=== PATIENT | female | born 1945 | race Caucasian/White ===

== ENCOUNTER 2021-06-06 10:06 | Emergency (ER) | payer MEDICARE ==
[2021-06-06 10:21] VITALS: BP 191/93
--- NOTE | 2021-06-06 11:47 | ED Physician Documentation ---
History of Present Illness - Stated complaint Stated Complaint: CHILLS, HIGH BP,SOA - Chief complaint Chief Complaint: General - Additonal information Additional information: 75-year-old female presents emergency department for evaluation of elevated blood pressure. She goes to a Suboxone clinic weekly and was told today that her blood pressure was greater than 180 thus she was advised to come to the ER. She has a heavy history of tobaccoism and cough at baseline but no change in the symptoms. She denies any leg swelling or chest pain. No headache, nausea, vomiting or abdominal pain. She states that she has been on Suboxone for about 2 months. Previous to this she was on methadone. She recently moved to the [place] from [place] and is staying with a cousin. She does not have a primary care doctor and denies that she is ever been treated for hypertension. She is taking no medications other than the Suboxone. Review of Systems Constitutional: denies: Fever, Chills Eyes: reports: Reviewed and negative Ears: reports: Reviewed and negative Nose: reports: Reviewed and negative Throat: reports: Reviewed and negative Cardiac: reports: Reviewed and negative Respiratory: reports: Reviewed and negative GI: reports: Reviewed and negative : reports: Reviewed and negative Skin: reports: Reviewed and negative PD PAST MEDICAL HISTORY - Present Medications Home Medications: Ambulatory Orders Medication Instructions Recorded Confirmed hydroCHLOROthiazide [Hydrodiuril] 12.5 mg PO DAILY #30 cap 06/06/21 - Allergies Allergies/Adverse Reactions: Allergies Allergy/AdvReac Type Severity Reaction Status Date / Time naloxone Allergy Anaphylaxis Verified 06/06/21 10:22 Penicillins Allergy Anaphylaxis Verified 06/06/21 10:22 PD ED PE EXPANDED - General General: Alert, No acute distress, Other (Appears older than stated age) - Cardiac Cardiac: Regular Rate, Radial strong equal, Pedal strong equal, Cap refill < 2 sec. No: Murmur Present - Respiratory Respiratory: Clear to ausultation saw. No: Distress, Labored - Abdomen Abdomen: Normal Bowel sounds. No: Tender to palpation - Derm Derm: Normal color, Warm and dry. No: Rash - Extremities Extremities: Normal. No: Deformity, Tenderness - Neuro Neuro: Alert and Oriented X 3, CNII-XII intact - GCS Eye Opening: Spontaneous Motor: Obeys Commands Verbal: Oriented Total: 15 Results - Vitals Vitals: Vital Signs - 24 hr 06/06/21 10:14 Temperature 36.5 C Heart Rate 70 Respiratory 18 Rate Blood Pressure 191/93 H O2 Saturation 99 Oxygen O2 Source Room air - EKG (time done) 1141 Rate: Rate (enter#) (71) Rhythm: NSR, Other (PAC) [place]: Normal Intervals: Normal MI, Prolonged QT QRS: Normal Ischemia: Non specific changes Other comments: Other comments Compare to prior EKG: Old EKG unavailable Computer interpretation: Disagree with computer - Labs Labs: Laboratory Tests 06/06/21 06/06/21 06/06/21 12:20 12:20 12:20 WBC 4.4 L RBC 4.93 Hgb 13.6 Hct 42.1 MCV 85.4 MCH 27.6 MCHC 32.3 RDW 14.7 Plt Count 170 MPV 8.9 Neut # (Auto) 2.1 Lymph # (Auto) 1.8 [place] # (Auto) 0.3 Eos # (Auto) 0.2 Baso # (Auto) 0.1 Absolute Nucleated RBC 0.00 Nucleated RBC % 0.0 Sodium 136 Potassium 4.3 Chloride 100 L Carbon Dioxide 27 Anion Gap 9.0 BUN 25 H Creatinine 0.9 Estimated GFR (MDRD) 61 L Glucose 92 Calcium 9.7 Total Bilirubin 0.7 AST 18 ALT 11 Alkaline Phosphatase 89 Troponin I High Sens 9.8 Total Protein 7.9 Albumin 3.9 Globulin 4.0 Albumin/Globulin Ratio 1.0 Lipase 30 - Rads (name of study) CXR Radiology: Final report received (no acute process) PD MEDICAL DECISION MAKING - ED course Complexity details: reviewed results, re-evaluated patient, considered differential, d/w patient ED course: 75-year-old female was referred to the emergency department from her Suboxone clinic for evaluation of elevated blood pressure. She is a daily tobacco user and was recently transition from methadone to Suboxone. She denies any recent illicit drug use. She states that it is likely been 10 to 15 years since she has taken blood pressure medication. Screening EKG and labs today are without acute findings. She has no headache, chest pain, abdominal pain nausea vomiting or new shortness of air. We discussed the long-term management of blood pressure is important. She did elect to start a low-dose of hydrochlorothiazide today. She will work to establish with a primary care doctor in the next few weeks. Emergent worrisome return precautions were otherwise discussed. Departure - Departure Disposition: 01 Home, Self Care Clinical Impression: Hypertension Qualifiers: Hypertension type: unspecified Qualified Code(s): I10 - Essential (primary) hypertension Condition: Stable Record reviewed to determine appropriate education?: Yes Prescriptions: hydroCHLOROthiazide [Hydrodiuril] 12.5 mg PO DAILY #30 cap Comments: Lana medrano were referred to the emergency department from the Suboxone clinic for elevated blood pressures. It sounds like it has been quite sometime since you have taken medication to control your blood pressure. Your screening EKG and labs today do not show any worrisome findings. It is going to be very important that you have a primary care doctor moving forward to help manage her blood pressure. You have elected to start treatment today therefore we will start you on hydrochlorothiazide. This medication will make you pee a little more than you normally would so I recommend you take it in the morning. Stopping tobacco use will also be helpful in the long-term and managing your blood pressure. If you ever develop chest pain, have sudden shortness of air or any fainting episodes return immediately to the emergency department. If you are unable to get an appointment to establish with a primary care doctor in the next 3 to 4 weeks I recommend that you follow-up at one of our local walk-in clinics. There they can reevaluate your blood pressure and make changes as necessary. Your prescription has been sent electronically to the [facility] in [place].
--- NOTE | 2021-06-06 12:19 | XRAY Report ---
PROCEDURE: Chest 1 View X-Ray INDICATIONS: Chest Pain TECHNIQUE: One view of the chest was acquired. COMPARISON: None FINDINGS: Surgical changes and devices: None. Lungs and pleura: No pleural effusions or pneumothorax. Lungs are clear. Mediastinum: Mediastinal contours appear normal. Heart size is normal. Bones and chest wall: No suspicious bony lesions. Overlying soft tissues appear unremarkable. IMPRESSION: No acute finding in the chest. Reviewed by: Harmeet Calvillo MD on 06/06/2021 12:18 PM PST Approved by: Harmeet Calvillo MD on 06/06/2021 12:18 PM PST Station ID: [id number]
[2021-06-06 12:28] LABS: BASOPHILS # (AUTO) 0.1 10^3/uL (0.0-0.1); BASOPHILS % (AUTO) 1.4 %; EOSINOPHILS # (AUTO) 0.2 10^3/uL (0.0-0.7); EOSINOPHILS % (AUTO) 5.4 %; HCT - HEMATOCRIT 42.1 % (37.0-47.0); HGB - HEMOGLOBIN 13.6 g/dL (12.0-16.0); LYMPHOCYTES # (AUTO) 1.8 10^3/uL (1.5-3.5); LYMPHOCYTES % (AUTO) 39.8 %; MEAN CORPUSCULAR HEMOGLOBIN 27.6 pg (27.0-31.0); MEAN CORPUSCULAR HGB CONC 32.3 g/dL (32.0-36.0); MEAN CORPUSCULAR VOLUME 85.4 fL (81.0-99.0); MEAN PLATELET VOLUME 8.9 fL (7.9-10.8); MONOCYTES # (AUTO) 0.3 10^3/uL (0.0-1.0); MONOCYTES % (AUTO) 6.3 %; NEUTROPHILS # (AUTO) 2.1 10^3/uL (1.5-6.6); NEUTROPHILS % (AUTO) 46.9 %; RED BLOOD COUNT 4.93 10^6/uL (4.20-5.40); RED CELL DISTRIBUTION WIDTH 14.7 % (12.0-15.0); WHITE BLOOD COUNT 4.4 x10^3/uL (4.8-10.8)
[2021-06-06 12:49] LABS: PLT - PLATELET COUNT 170 10^3/uL (130-450)
[2021-06-06 12:50] LABS: ALBUMIN 3.9 g/dL (3.2-5.5); BILIRUBIN,TOTAL 0.7 mg/dL (0.2-1.0); CALCIUM 9.7 mg/dL (8.5-10.3); CREATININE 0.9 mg/dL (0.4-1.0); POTASSIUM 4.3 mmol/L (3.5-5.0); TOTAL PROTEIN 7.9 g/dL (6.7-8.2)
== END 2021-06-06 13:37 | disposition home or self-care (01) ==
LOC: ED 10:06
DX: I10 Essential (primary) hypertension (principal); Z72.0 Tobacco use; Z79.891 Long term (current) use of opiate analgesic
CPT/HCPCS: 36415; 80053; 83690; 84484; 85025; 93005; 99283; 99284

== ENCOUNTER 2021-07-30 16:21 | Emergency (ER) | payer MEDICARE ==
--- NOTE | 2021-07-30 17:41 | ED Physician Documentation ---
History of Present Illness - Stated complaint Stated Complaint: HIGH BP - Chief complaint Chief Complaint: General - History obtained from History obtained from: Patient - Additonal information Additional information: 76-year-old woman with history of hypertension presents with multiple complaints, the foremost which is that she like a refill of her blood pressure medications. She was seen here recently and prescribed chlorthalidone that was modestly effective but only when combined with some leftover clonidine. Ancillary complaints include cerumen impaction and subacute diarrhea. No abdominal pain. 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 : None HEENT: None, Chronic vision loss, Chronic hearing loss Psych: Depression, Other Musculoskeletal: None Derm: None - Past Surgical History Past Surgical History: No - Present Medications Home Medications: Ambulatory Orders Medication Instructions Recorded Confirmed hydroCHLOROthiazide [Hydrodiuril] 12.5 mg PO DAILY #30 cap 06/06/21 07/30/21 Chlorthalidone 0.5 tab PO DAILY #30 tablet 07/30/21 Clonidine HCl [Clonidine HCl ER] 0.1 mg PO BID #60 07/30/21 buprenorphine HCL [Buprenorphine 1 tab ORAL BID 07/30/21 07/30/21 HCl] - Allergies Allergies/Adverse Reactions: Allergies Allergy/AdvReac Type Severity Reaction Status Date / Time naloxone Allergy Anaphylaxis Verified 06/06/21 10:22 Penicillins Allergy Anaphylaxis Verified 06/06/21 10:22 - Social History Does the pt smoke?: Yes Smoking Status: Current every day smoker Does the pt drink ETOH?: No Does the pt have substance abuse?: Yes Substance Use and Type: Heroin - Immunizations Immunizations are current?: Yes - POLST Patient has POLST: Yes PD ED PE NORMAL - Vitals Vital signs reviewed: Yes - General General: Alert and oriented X 3, No acute distress - HEENT HEENT: Other (Bilateral cerumen impaction) - Neuro Neuro: Alert and oriented X 3, No motor deficit, No sensory deficit, Normal speech Eye Opening: Spontaneous Motor: Obeys Commands Verbal: Oriented GCS Score: 15 Results - Vitals Vitals: Vital Signs - 24 hr 03/27/22 03/27/22 16:32 17:43 Temperature 36.9 C Heart Rate 90 77 Respiratory 18 16 Rate Blood Pressure 175/84 H 141/75 H O2 Saturation 96 96 Oxygen O2 Source Room air PD MEDICAL DECISION MAKING - ED course ED course: I asked the RN to irrigate her ears for the cerumen. We discussed that for the subacute diarrhea she really needs a primary care physician to order back for her, refill her meds and probably refer her for a colonoscopy since it has been about 20 years since she had one. I am refilling her chlorthalidone and clonidine. She did have a work-up last time she presented for hypertension which was negative. Departure - Departure Disposition: Home, Self Care Clinical Impression: Cerumen impaction, Hypertension Condition: Good Record reviewed to determine appropriate education?: Yes Instructions: ED HTN Established Follow-Up: Dior Barton ARNP [Physician No Access] - Prescriptions: Chlorthalidone 0.5 tab PO DAILY #30 tablet Clonidine HCl [Clonidine HCl ER] 0.1 mg PO BID #60 Comments: As discussed it is imperative that you follow-up with a primary care physician for discussion of chronic management of hypertension, and routine care that you are missing such as colonoscopy and lipid panel. Return for new or worsening symptoms. Discharge Date/Time: 07/30/21 18:20
[2021-07-30 17:43] VITALS: BP 141/75
== END 2021-07-30 18:20 | disposition home or self-care (01) ==
LOC: ED 16:21
DX: Z76.0 Encounter for issue of repeat prescription (principal); H61.23 Impacted cerumen, bilateral; R19.7 Diarrhea, unspecified; F17.200 Nicotine dependence, unspecified, uncomplicated
CPT/HCPCS: 99282

== ENCOUNTER 2021-11-29 07:17 | Outpatient (CLI) | payer MEDICARE | END 2021-11-29 07:18 | disposition EMS.NT | LOC: EMS 07:17 | DX: R05.9 Cough, unspecified (principal) ==

== ENCOUNTER 2021-12-01 12:13 | Outpatient (CLI) | payer MEDICARE | END 2021-12-01 12:14 | disposition critical access hospital (66) | LOC: EMS 12:13 | DX: U07.1 COVID-19 (principal) | CPT/HCPCS: A0425; A0429 ==

== ENCOUNTER 2021-12-01 12:44 | Inpatient (IN) | payer MEDICARE ==
[2021-12-01] MEDS ORDERED: SODIUM CHLORIDE 0.9% 1,000 ML IV STA (12:58)
--- NOTE | 2021-12-01 13:02 | ED Physician Documentation ---
History of Present Illness - Stated complaint Stated Complaint: C+/WEAKNESS - Additonal information Additional information: 76-year-old female was brought to the emergency department via EMS for evaluation of generalized weakness, hypoxia and dyspnea in the setting of recent COVID-19 diagnosis. Patient is a poor historian oriented to self only. Most of the history obtained from EMS. Patient was diagnosed with COVID about 5 days ago. Multiple members of the household are positive. She has over the last few days become increasingly weak, persistent cough. Now difficulty getting out of bed. No appetite. For EMS they noted modest hypoxia with saturation of 86%. She was placed on a nonrebreather in route. Her sats did rise to about 94%. Without the oxygen her saturations quickly declined to 83%. Thus she is replaced back on oxygen, 4 L NC with rise in sats to 92% On presentation the patient appears quite ill, she is somewhat lethargic but she is maintaining her airway with a cough. She has very dry mucous membranes. She states that she is currently a 1/2 pack/day tobacco user. 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 HEENT: None, Chronic vision loss, Chronic hearing loss Psych: Depression, Other Musculoskeletal: None Derm: None - Past Surgical History Past Surgical History: No - Present Medications Home Medications: Ambulatory Orders Medication Instructions Recorded Confirmed hydroCHLOROthiazide [Hydrodiuril] 12.5 mg PO DAILY #30 cap 06/06/21 07/30/21 Chlorthalidone 0.5 tab PO DAILY #30 tablet 07/30/21 Clonidine HCl [Clonidine HCl ER] 0.1 mg PO BID #60 07/30/21 buprenorphine HCL [Buprenorphine 1 tab ORAL BID 07/30/21 07/30/21 HCl] - Allergies Allergies/Adverse Reactions: Allergies Allergy/AdvReac Type Severity Reaction Status Date / Time naloxone Allergy Anaphylaxis Verified 06/06/21 10:22 Penicillins Allergy Anaphylaxis Verified 06/06/21 10:22 - Social History Does the pt smoke?: Yes Smoking Status: Current every day smoker Does the pt drink ETOH?: No Does the pt have substance abuse?: Yes - Immunizations Immunizations are current?: Yes - POLST Patient has POLST: Yes PD ED PE EXPANDED - General General: Disheveled, poorly kept, Lethargic, Other (Frail elderly appearance appears ill) - HEENT HEENT: Dry mucous membranes, Other (Conjunctival injection of the left eye with some mucopurulent drainage) - Neck Neck: Supple w/out meningeal sx. No: Adenopathy - Cardiac Cardiac: Regular Rate, Murmur Present, Radial strong equal. No: Pedal strong equal (1+ only; BCRT) - Respiratory Respiratory: Wheezing (genrally rhoncorous,expiratory wheeze) - Abdomen Abdomen: No: Tender to palpation - Derm Derm: Warm and dry, Other (hemosiderin staining BLE; PVD) - Extremities Extremities: Normal. No: Deformity, Tenderness, Pedal edema bilateral - Neuro Neuro: CNII-XII intact - GCS Eye Opening: Spontaneous Motor: Obeys Commands Verbal: Confused Total: 14 Results - Vitals Vitals: Vital Signs - 24 hr 12/01/21 12/01/21 12:54 12:59 Temperature 37.1 C Heart Rate 80 Blood Pressure 129/71 O2 Saturation 83 L 95 Oxygen O2 Source Nasal cannula Oxygen Flow Rate 3 - Labs Labs: Laboratory Tests 12/01/21 12/01/21 12/01/21 13:35 13:53 13:53 WBC 5.1 RBC 4.96 Hgb 14.6 Hct 42.6 MCV 85.9 MCH 29.4 MCHC 34.3 RDW 14.3 Plt Count 148 MPV 9.9 Neut # (Auto) 3.7 Lymph # (Auto) 0.8 L [place] # (Auto) 0.5 Eos # (Auto) 0.0 Baso # (Auto) 0.0 Absolute Nucleated RBC 0.00 Nucleated RBC % 0.0 Sodium 132 L Potassium 3.4 L Chloride 94 L Carbon Dioxide 19 L Anion Gap 19.0 H BUN 74 H Creatinine 1.8 H Estimated GFR (MDRD) 27 L Glucose 88 Calcium 9.0 Total Bilirubin 1.0 AST 45 H ALT 21 Alkaline Phosphatase 56 Total Protein 7.5 Albumin 3.4 Globulin 4.1 Albumin/Globulin Ratio 0.8 L Lipase 37 Nasal Adenovirus (PCR) NOT DETECTED Nasal B. parapertussis DNA (PCR) NOT DETECTED Nasal Coronavir 229E PCR NOT DETECTED Nasal Coronavir HKU1 PCR NOT DETECTED Nasal Coronavir NL63 PCR NOT DETECTED Nasal Coronavir OC43 PCR NOT DETECTED Nasal Enterovir/Rhinovir PCR NOT DETECTED Nasal Influenza B PCR NOT DETECTED Nasal Influenza A PCR NOT DETECTED Nasal Parainfluen 1 PCR NOT DETECTED Nasal Parainfluen 2 PCR NOT DETECTED Nasal Parainfluen 3 PCR NOT DETECTED Nasal Parainfluen 4 PCR NOT DETECTED Nasal RSV (PCR) NOT DETECTED Nasal B.pertussis DNA PCR NOT DETECTED Nasal C.pneumoniae (PCR) NOT DETECTED Fabiano Human Metapneumo PCR NOT DETECTED Nasal M.pneumoniae (PCR) NOT DETECTED Nasal SARS-CoV-2 (PCR) DETECTED A - Rads (name of study) cxr Radiology: Final report received (Mild basilar and perihilar opacities could be seen with bronchitis/aspiration, infection and or atelectasis.) PD MEDICAL DECISION MAKING - ED course Complexity details: reviewed results, re-evaluated patient, considered differential, d/w patient ED course: 76-year-old female presents from home for evaluation of generalized weakness difficulty breathing in the setting of recent COVID-19 infection. She is not yet vaccinated for COVID-19. Up until recently she was a heavy 1/2 pack/day tobacco user. Over the last 4 to 5 days she has had progressive weakness at home, loss of appetite, poor p.o. intake and difficulty breathing. For EMS she had moderate hypoxia with saturations in the mid 80s. She arrived on a nonrebreather. Here in the emergency department on room air her saturations quickly declined to 83%. She was subsequently placed on 4 L nasal cannula with resultant rise in oxygen saturations to 94%. Screening chest x-ray shows some lower bibasilar pneumonia. She is started on ceftriaxone and azithromycin. Respiratory PCR is pending though we suspect would positive for COVID-19. Screening labs were obtained. No leukocytosis. Her electrolytes suggest moderate dehydration with an elevated BUN and creatinine. I have instituted 1 L of crystalloid. However given the hypoxia and pneumonia she was presented for admission to Dr. Marco A López who has agreed to admit the patient. I did attempt to call the listed contact at home 3 times to update to status and condition and no answer was received. Departure - Departure Disposition: 66 [facility] DC/Xfer Clinical Impression: Hypoxia, AMPARO (acute kidney injury), History of COPD, COVID-19 Pneumonia Qualifiers: Pneumonia type: due to unspecified organism Laterality: bilateral Lung location: unspecified part of lung Qualified Code(s): J18.9 - Pneumonia, unspecified organism Discharge Date/Time: 12/01/21 16:47
--- NOTE | 2021-12-01 13:37 | XRAY Report ---
PROCEDURE: Chest 1 View X-Ray INDICATIONS: chest pain TECHNIQUE: One view of the chest was acquired. COMPARISON: 06/06/2021 FINDINGS: Surgical changes and devices: Right axillary clips. Lungs and pleura: Patchy mild basilar and perihilar opacities. Elevation the right hemidiaphragm. No pleural effusion or pneumothorax. Mediastinum: Mediastinal contours appear normal. Heart size is normal. Aortic calcifications. Bones and chest wall: No suspicious bony lesions. Overlying soft tissues appear unremarkable. IMPRESSION: Mild basilar and perihilar opacities could be seen with bronchitis/aspiration, infection, and/or atel ectasis. Consider follow-up imaging to document resolution. Reviewed by: Osbaldo Richmond MD on 12/01/2021 1:35 PM PDT Approved by: Osbaldo Richmond MD on 12/01/2021 1:35 PM PDT Station ID: [id number]
[2021-12-01] MEDS ORDERED: cefTRIAXone 1 GM in SODIUM CHLORIDE 0.9% MINIBAG 100 ML IV STA (13:53)
[2021-12-01] MEDS ORDERED: AZITHROMYCIN INJ 500 MG in SODIUM CHLORIDE 0.9% 250 ML IV STA (13:53)
[2021-12-01 14:02] LABS: BASOPHILS % (AUTO) 0.2 %; HCT - HEMATOCRIT 42.6 % (37.0-47.0); HGB - HEMOGLOBIN 14.6 g/dL (12.0-16.0); LYMPHOCYTES # (AUTO) 0.8 10^3/uL (1.5-3.5); LYMPHOCYTES % (AUTO) 15.9 %; MEAN CORPUSCULAR HEMOGLOBIN 29.4 pg (27.0-31.0); MEAN CORPUSCULAR HGB CONC 34.3 g/dL (32.0-36.0); MEAN CORPUSCULAR VOLUME 85.9 fL (81.0-99.0); MEAN PLATELET VOLUME 9.9 fL (7.9-10.8); MONOCYTES # (AUTO) 0.5 10^3/uL (0.0-1.0); MONOCYTES % (AUTO) 10.6 %; NEUTROPHILS # (AUTO) 3.7 10^3/uL (1.5-6.6); NEUTROPHILS % (AUTO) 73.1 %; PLT - PLATELET COUNT 148 10^3/uL (130-450); RED BLOOD COUNT 4.96 10^6/uL (4.20-5.40); RED CELL DISTRIBUTION WIDTH 14.3 % (12.0-15.0); WHITE BLOOD COUNT 5.1 x10^3/uL (4.8-10.8)
[2021-12-01 14:13] LABS: ALBUMIN 3.4 g/dL (3.2-5.5); ALBUMIN/GLOBULIN RATIO 0.8 (1.0-2.2); CREATININE 1.8 mg/dL (0.4-1.0); POTASSIUM 3.4 mmol/L (3.5-5.0); TOTAL PROTEIN 7.5 g/dL (6.7-8.2)
[2021-12-01 14:36] LABS: B. PARAPERTUSSIS- RESP PCR PAN NOT DETECTED; B. PERTUSSIS- RESP PCR PANEL NOT DETECTED; C. PNEUMONIAE- RESP PCR PANEL NOT DETECTED; CORONAVIRUS 229E-RESP PCR NOT DETECTED; CORONAVIRUS HKU1-RESP PCR NOT DETECTED; CORONAVIRUS NL63-RESP PCR NOT DETECTED; CORONAVIRUS OC43-RESP PCR NOT DETECTED; HUMAN METAPNEUMOVIRUS NOT DETECTED; INFLUENZA A- RESP PCR PANEL NOT DETECTED; INFLUENZA B - RESP PCR PANEL NOT DETECTED; M. PNEUMONIAE- RESP PCR PANEL NOT DETECTED; PARAINFLUENZA VIRUS 1 NOT DETECTED; PARAINFLUENZA VIRUS 2 NOT DETECTED; PARAINFLUENZA VIRUS 3 NOT DETECTED; PARAINFLUENZA VIRUS 4 NOT DETECTED; RHINOVIRUS/ENTEROVIRUS NOT DETECTED; RSV- RESP PCR PANEL NOT DETECTED
[2021-12-01 14:39] LABS: SARS-CoV-2 -RESP PCR PANEL DETECTED
[2021-12-01] MEDS ORDERED: SODIUM CHLORIDE FLUSH 0.9% 10 ML SYRINGE IVP PRN (14:49)
[2021-12-01] MEDS ORDERED: ACETAMINOPHEN 325 MG TABLET PO PRN (14:49)
[2021-12-01] MEDS ORDERED: ONDANSETRON 4 MG/2 ML VIAL IVP PRN (14:49)
--- NOTE | 2021-12-01 14:54 | HISTORY & PHYSICAL EXAMINATION ---
Chief Complaint - Chief Complaint Chief Complaint: hypoxia History of Present Illness - Admitted From [facility] - History Obtained From Records Reviewed: yes History obtained from: patient - History of Present Illness HPI Comment/Other: Patient is a 76-year-old frail female with medical history significant for hypertension, COPD and chronic pain who presented to the ED with hypoxia. She is unvaccinated for COVID-19 and over the past couple of days everybody in her household has come down with COVID 19. Over the past couple days she has become progressively weak with productive cough. As a result a family member called EMS to bring her to the emergency department. It was reported that her oxygen saturation was 86% on room air. In the emergency department her oxygen saturation was 83% on room air. Chest x-ray showed mild basilar and perihilar opacities for which differential included bronchitis/aspiration, infection and atelectasis. As a result of her presentation she is being admitted for continued treatment. At bedside she denies chest pain, abdominal pain, nausea or vomiting she has mild dyspnea. She has significantly diminished breath sounds on auscultation. She also has very dry oral mucosa. 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 Social History Notes: She lives at home with her family. She smokes half a pack of cigarettes daily. She has been smoking for 50+ years. She does not consume alcohol. She uses marijuana. - POLST Patient has POLST: No POLST Status: Full Code Meds/Allgy - Home Medications Home Medications: Ambulatory Orders Medication Instructions Recorded Confirmed hydroCHLOROthiazide [Hydrodiuril] 12.5 mg PO DAILY #30 cap 06/06/21 07/30/21 Chlorthalidone 0.5 tab PO DAILY #30 tablet 07/30/21 Clonidine HCl [Clonidine HCl ER] 0.1 mg PO BID #60 07/30/21 buprenorphine HCL [Buprenorphine 1 tab ORAL BID 07/30/21 07/30/21 HCl] - Allergies Allergies/Adverse Reactions: Allergies Allergy/AdvReac Type Severity Reaction Status Date / Time naloxone Allergy Anaphylaxis Verified 06/06/21 10:22 Penicillins Allergy Anaphylaxis Verified 06/06/21 10:22 Review of Systems - Other Findings Other Findings: A 12 point review of system was done and found to be negative except was mentioned in the HPI. Prior Level of Functionality: She is independent of activities of daily living. Exam - Vital Signs Vital Signs: Vital Signs x48h Temp Pulse BP Pulse Ox 12/01/21 12:59 95 12/01/21 12:54 37.1 C 80 129/71 83 L - Physical Exam General Appearance: positive: No acute distress, Alert, Other (frail) Eyes Bilateral: positive: PERRL, EOMI ENT: positive: Dry mucous membranes Neck: positive: No JVD, Trachea midline Respiratory: positive: Chest non-tender, No respiratory distress, Other (very diminished breath sounds) Cardiovascular: positive: Regular rate & rhythm, No murmur Abdomen: positive: Non-tender, No organomegaly, Nml bowel sounds, No distention. negative: Guarding, Rebound Back: positive: Nml inspection Skin: positive: No rash, Warm, Dry Extremities: positive: Non-tender, Nml appearance, No pedal edema Neurologic/Psychiatric: positive: Oriented x3, Mood/affect nml Conclusion/Plan - Problem List (1) Acute respiratory failure with hypoxia Conclusion/Plan: Likely secondary to COVID-19. Patient is unvaccinated for COVID-19. Cannot rule out a bacterial infection as well. O2 saturation was 83% on room air. She does not use supplemental oxygen at home. Patient is currently on 3 L of oxygen via nasal cannula with oxygen saturation at 96%. On Rocephin and azithromycin. Remdesivir initiated. On dexamethasone 6 mg IV daily. (2) COVID-19 Conclusion/Plan: Patient is unvaccinated for COVID-19. Cannot rule out a bacterial infection as well. O2 saturation was 83% on room air. She does not use supplemental oxygen at home. Patient is currently on 3 L of oxygen via nasal cannula with oxygen saturation at 96%. On Rocephin and azithromycin. Remdesivir initiated. On dexamethasone 6 mg IV daily. (3) AMPARO (acute kidney injury) Conclusion/Plan: Prerenal. Secondary to dehydration. Creatinine was 1.8 with estimated GFR 27 She was given 1 L bolus of fluid in the ED. Will continue IV hydration with normal saline at 75 mL/h. Anticipating improvement in renal function. (4) History of COPD Conclusion/Plan: Not in exacerbation. Perforomist and budesonide twice daily ordered. Dexamethasone 6 mg IV daily. On supplemental oxygen via nasal cannula. Nicotine patch daily. (5) Hypertension Conclusion/Plan: Patient is on clonidine and chlorthalidone at home. Hydralazine 10 mg IV every 4 hours as needed for systolic blood pressure greater than 160 - Lab Results Fish Bones: 12/01/21 13:53 12/01/21 13:53 Core Measures - Anticipated LOS I expect patient to be DC'd or transferred within 96 hours.: Yes - DVT/VTE - Prophylaxis VTE/DVT Prophylaxis med ordered at admit?: Yes
[2021-12-01] MEDS ORDERED: REMDESIVIR 100MG VIAL 200 MG in SODIUM CHLORIDE 0.9% 250 ML IV ONE (17:00)
[2021-12-01] MEDS: SODIUM CHLORIDE 0.9% 1,000 ML IV SCH (17:01)
[2021-12-01] MEDS: DEXAMETHASONE 4 MG/ML VIAL IVP SCH (17:09)
[2021-12-01] MEDS: ENOXAPARIN 40 MG/0.4 ML SYRINGE SUBQ SCH (17:12)
[2021-12-01] MEDS: SODIUM CHLORIDE FLUSH 0.9% 10 ML SYRINGE IVP SCH (17:18)
[2021-12-01] MEDS ORDERED: hydrALAZINE INJ 20 MG/ML VIAL IVP PRN (18:22)
[2021-12-01] MEDS: BUDESONIDE 0.5 MG/2 ML NEB INH SCH (19:20)
[2021-12-01] MEDS: FORMOTEROL FUMARATE NEB 20 MCG/2 ML INH SCH (19:20)
[2021-12-02] MEDS: SODIUM CHLORIDE 0.9% 1,000 ML IV SCH (07:02)
[2021-12-02] MEDS: FORMOTEROL FUMARATE NEB 20 MCG/2 ML INH SCH (08:08)
[2021-12-02] MEDS: BUDESONIDE 0.5 MG/2 ML NEB INH SCH (08:08)
--- NOTE | 2021-12-02 08:08 | PROVIDER PROGRESS NOTE ---
Assessment/Plan - Current Meds Current Meds: Current Medications Generic Name Dose Route Start Last Admin Trade Name Freq PRN Reason Stop Dose Admin Budesonide 0.5 mg 12/01/21 19:00 12/01/21 19:20 Budesonide 0.5 Mg/2 Ml Neb INH 0.5 mg RTBID PEMA Administration Dexamethasone 6 mg 12/01/21 16:00 12/01/21 17:09 Dexamethasone 4 Mg/Ml Vial IVP 6 mg DAILY PEMA Administration Enoxaparin Sodium 30 mg 12/01/21 16:30 12/01/21 17:12 Enoxaparin 40 Mg/0.4 Ml Syringe SUBQ 30 mg DAILY PEMA Administration Formoterol Fumarate 20 mcg 12/01/21 19:00 12/01/21 19:20 Formoterol Fumarate Neb 20 Mcg/2 Ml INH 20 mcg RTBID PEMA Administration Sodium Chloride 1,000 mls @ 75 mls/hr 12/01/21 15:00 12/02/21 07:02 Normal Saline 0.9% IV 75 mls/hr .[id number] PEMA Administration Sodium Chloride 10 ml 12/01/21 17:00 12/02/21 00:00 Sodium Chloride Flush 0.9% 10 Ml Syringe IVP Not Given 0100,0900,1700 PEMA - Lab Result Fish Bone Diagrams: 12/01/21 13:53 12/01/21 13:53 - Additional Planning My Orders: My Active Orders 12/01/21 14:49 Activity Orders [RC] Q2HR IO [RC] IOSHIFT Incentive Spirometry - RT [RC] TID Initiate Bowel Care Protocol [RC] .protocol Initiate Line Care Protocol [RC] QSHIFT Initiate Personal Care Protoco [RC] .protocol Oxygen Therapy [RC] .PRN Telemetry- [RC] Q4HR Vital Signs [RC] Q4H Acetaminophen [Tylenol] 650 mg PO Q4HR PRN Ondansetron Inj [Zofran Inj] 4 mg IVP Q6HR PRN Sodium Chloride Flush 0.9% [Normal Saline Flush 0.9%] 10 ml IVP PRN PRN Code Status [OTHERS] Routine Condition of Patient [OTHERS] Routine DVT Prophylaxis [OTHERS] Routine 12/01/21 15:00 Sodium Chloride 0.9% [Normal Saline 0.9%] 1,000 ml IV 75 mls/hr 12/01/21 16:00 dexAMETHasone [Decadron] 6 mg IVP DAILY 12/01/21 Dinner Regular Diet [DIET] 12/01/21 16:30 Enoxaparin [Lovenox] 30 mg SUBQ DAILY 12/01/21 17:00 Sodium Chloride Flush 0.9% [Normal Saline Flush 0.9%] 10 ml IVP 0100,0900,1700 12/01/21 18:20 Nebulizer/MDI Tx. [RC] .BID Resp Teach Nebulizer/MDI [RC] .ONCE 12/01/21 18:22 hydrALAZINE INJ [Apresoline Inj] 10 mg IVP Q4H PRN 12/01/21 19:00 Budesonide [Pulmicort] 0.5 mg INH RTBID Formoterol Fumarate [Perforomist] 20 mcg INH RTBID 12/02/21 07:27 CBC - COMP BLD CT W/AUTO DIFF [HEME] DAILYLAB 12/02/21 09:00 Azithromycin Inj [Zithromax Inj] 500 mg Sodium Chloride 0.9% [Normal Saline 0.9%] 250 ml IV DAILY Nicotine 14 mg Patch [Nicoderm] 1 patch TOP DAILY Remdesivir 100Mg Vial [Veklury] 100 mg Sodium Chloride 0.9% 100Ml [Normal Saline 0.9% 100Ml] 100 ml IV DAILY cefTRIAXone [Rocephin] 1 gm Sodium Chloride 0.9% Minibag [Normal Saline 0.9% Minibag] 100 ml IV DAILY 12/03/21 05:00 BMP - BASIC METABOLIC PANEL [CHEM] DAILYLAB CBC - COMP BLD CT W/AUTO DIFF [HEME] DAILYLAB 12/04/21 05:00 BMP - BASIC METABOLIC PANEL [CHEM] DAILYLAB CBC - COMP BLD CT W/AUTO DIFF [HEME] DAILYLAB 12/05/21 05:00 BMP - BASIC METABOLIC PANEL [CHEM] DAILYLAB CBC - COMP BLD CT W/AUTO DIFF [HEME] DAILYLAB 12/06/21 05:00 BMP - BASIC METABOLIC PANEL [CHEM] DAILYLAB CBC - COMP BLD CT W/AUTO DIFF [HEME] DAILYLAB Objective Vital Signs: Vital Signs - 24 hr 12/01/21 12/01/21 12/01/21 12:54 12:59 16:50 Temperature 37.1 C 36.9 C Heart Rate 80 Heart Rate [ 78 Brachial] Respiratory 18 Rate Blood Pressure 129/71 Blood Pressure 152/76 H [Left Brachial artery] Blood Pressure [Right Brachial artery] O2 Saturation 83 L 95 96 12/01/21 12/01/21 12/02/21 19:23 21:19 00:22 Temperature 36.5 C 36.3 C L Heart Rate 80 Heart Rate [ 72 73 Brachial] Respiratory 18 18 20 Rate Blood Pressure Blood Pressure [Left Brachial artery] Blood Pressure 155/64 H 126/72 [Right Brachial artery] O2 Saturation 96 94 12/02/21 03:58 Temperature 36.3 C L Heart Rate Heart Rate [ 66 Brachial] Respiratory 17 Rate Blood Pressure Blood Pressure 130/80 [Left Brachial artery] Blood Pressure [Right Brachial artery] O2 Saturation 93 Oxygen O2 Source Nasal cannula Oxygen Flow Rate 3 I&O (Last 24 Hrs): Intake and Output Totals x24h 11/30/21 12/01/21 12/02/21 23:59 23:59 23:59 Intake Total 1861.25 945 Output Total 300 Balance 1861.25 645 - Results Results: Laboratory Results WBC 5.1 x10^3/uL (4.8-10.8) 12/01/21 13:53 RBC 4.96 10^6/uL (4.20-5.40) 12/01/21 13:53 Hgb 14.6 g/dL (12.0-16.0) 12/01/21 13:53 Hct 42.6 % (37.0-47.0) 12/01/21 13:53 MCV 85.9 fL (81.0-99.0) 12/01/21 13:53 MCH 29.4 pg (27.0-31.0) 12/01/21 13:53 MCHC 34.3 g/dL (32.0-36.0) 12/01/21 13:53 RDW 14.3 % (12.0-15.0) 12/01/21 13:53 Plt Count 148 10^3/uL (130-450) 12/01/21 13:53 MPV 9.9 fL (7.9-10.8) 12/01/21 13:53 Neut # (Auto) 3.7 10^3/uL (1.5-6.6) 12/01/21 13:53 Lymph # (Auto) 0.8 10^3/uL (1.5-3.5) L 12/01/21 13:53 [place] # (Auto) 0.5 10^3/uL (0.0-1.0) 12/01/21 13:53 Eos # (Auto) 0.0 10^3/uL (0.0-0.7) 12/01/21 13:53 Baso # (Auto) 0.0 10^3/uL (0.0-0.1) 12/01/21 13:53 Absolute Nucleated RBC 0.00 x10^3/uL 12/01/21 13:53 Nucleated RBC % 0.0 /100WBC 12/01/21 13:53 Sodium 132 mmol/L (135-145) L 12/01/21 13:53 Potassium 3.4 mmol/L (3.5-5.0) L 12/01/21 13:53 Chloride 94 mmol/L (101-111) L 12/01/21 13:53 Carbon Dioxide 19 mmol/L (21-32) L 12/01/21 13:53 Anion Gap 19.0 (6-13) H 12/01/21 13:53 BUN 74 mg/dL (6-20) H 12/01/21 13:53 Creatinine 1.8 mg/dL (0.4-1.0) H 12/01/21 13:53 Estimated GFR (MDRD) 27 (>89) L 12/01/21 13:53 Glucose 88 mg/dL (70-100) 12/01/21 13:53 Calcium 9.0 mg/dL (8.5-10.3) 12/01/21 13:53 Total Bilirubin 1.0 mg/dL (0.2-1.0) 12/01/21 13:53 AST 45 IU/L (10-42) H 12/01/21 13:53 ALT 21 IU/L (10-60) 12/01/21 13:53 Alkaline Phosphatase 56 IU/L (42-121) 12/01/21 13:53 Total Protein 7.5 g/dL (6.7-8.2) 12/01/21 13:53 Albumin 3.4 g/dL (3.2-5.5) 12/01/21 13:53 Globulin 4.1 g/dL (2.1-4.2) 12/01/21 13:53 Albumin/Globulin Ratio 0.8 (1.0-2.2) L 12/01/21 13:53 Lipase 37 U/L (22-51) 12/01/21 13:53 Nasal Adenovirus (PCR) NOT DETECTED 12/01/21 13:35 Nasal B. parapertussis DNA (PCR) NOT DETECTED 12/01/21 13:35 Nasal Coronavir 229E PCR NOT DETECTED 12/01/21 13:35 Nasal Coronavir HKU1 PCR NOT DETECTED 12/01/21 13:35 Nasal Coronavir NL63 PCR NOT DETECTED 12/01/21 13:35 Nasal Coronavir OC43 PCR NOT DETECTED 12/01/21 13:35 Nasal Enterovir/Rhinovir PCR NOT DETECTED 12/01/21 13:35 Nasal Influenza B PCR NOT DETECTED 12/01/21 13:35 Nasal Influenza A PCR NOT DETECTED 12/01/21 13:35 Nasal Parainfluen 1 PCR NOT DETECTED 12/01/21 13:35 Nasal Parainfluen 2 PCR NOT DETECTED 12/01/21 13:35 Nasal Parainfluen 3 PCR NOT DETECTED 12/01/21 13:35 Nasal Parainfluen 4 PCR NOT DETECTED 12/01/21 13:35 Nasal RSV (PCR) NOT DETECTED 12/01/21 13:35 Nasal B.pertussis DNA PCR NOT DETECTED 12/01/21 13:35 Nasal C.pneumoniae (PCR) NOT DETECTED 12/01/21 13:35 Fabiano Human Metapneumo PCR NOT DETECTED 12/01/21 13:35 Nasal M.pneumoniae (PCR) NOT DETECTED 12/01/21 13:35 Nasal SARS-CoV-2 (PCR) DETECTED A 12/01/21 13:35
[2021-12-02 08:49] LABS: BASOPHILS % (AUTO) 0.4 %; HCT - HEMATOCRIT 39.6 % (37.0-47.0); LYMPHOCYTES % (AUTO) 15.8 %; MEAN CORPUSCULAR HEMOGLOBIN 28.9 pg (27.0-31.0); MEAN CORPUSCULAR HGB CONC 35.4 g/dL (32.0-36.0); MEAN CORPUSCULAR VOLUME 81.8 fL (81.0-99.0); MEAN PLATELET VOLUME 10.5 fL (7.9-10.8); MONOCYTES % (AUTO) 5.3 %; NEUTROPHILS % (AUTO) 76.9 %; PLT - PLATELET COUNT 121 10^3/uL (130-450); RED BLOOD COUNT 4.84 10^6/uL (4.20-5.40); RED CELL DISTRIBUTION WIDTH 14.4 % (12.0-15.0); WHITE BLOOD COUNT 2.5 x10^3/uL (4.8-10.8)
[2021-12-02 08:52] LABS: ABNORMAL LYMPHS % (MANUAL) 0 %; SLIDE REVIEW? Indicated
[2021-12-02] MEDS: DEXAMETHASONE 4 MG/ML VIAL IVP SCH (08:55)
[2021-12-02] MEDS: ENOXAPARIN 40 MG/0.4 ML SYRINGE SUBQ SCH (08:56)
[2021-12-02 08:57] LABS: BAND NEUTROPHILS % (MANUAL) 10 %; DIFFERENTIAL COMMENT MANUAL DIFFERENTIAL; LYMPHOCYTES # (MANUAL) 0.2 10^3/uL (1.5-3.5); LYMPHOCYTES % (MANUAL) 8 %; MONOCYTES # (MANUAL) 0.1 10^3/uL (0.0-1.0); NEUTROPHILS # (MANUAL) 2.2 10^3/uL (1.5-6.6)
[2021-12-02 08:59] LABS: RBC MORPHOLOGY (MULTIPLE) 1+ POIKILOCYTOSIS (NORMAL)
[2021-12-02 09:00] LABS: PLATELET ESTIMATE, MANUAL DECREASED (<130,000) (NORMAL); PLATELET MORPHOLOGY PLATELET CLUMPING (NORMAL); WBC MORPHOLOGY (MULTIPLE) NORMAL APPEARANCE (NORMAL)
[2021-12-02] MEDS ORDERED: cefTRIAXone 1 GM in SODIUM CHLORIDE 0.9% MINIBAG 100 ML IV SCH (09:00)
[2021-12-02] MEDS ORDERED: AZITHROMYCIN INJ 500 MG in SODIUM CHLORIDE 0.9% 250 ML IV SCH (09:00)
[2021-12-02] MEDS ORDERED: NICOTINE 14 MG PATCH TOP SCH (09:00)
[2021-12-02] MEDS ORDERED: REMDESIVIR 100MG VIAL 100 MG in SODIUM CHLORIDE 0.9% 100ML 100 ML IV SCH (09:00)
[2021-12-02] MEDS: SODIUM CHLORIDE FLUSH 0.9% 10 ML SYRINGE IVP SCH ×3 (11:06→16:58)
--- NOTE | 2021-12-02 15:29 | DISCHARGE SUMMARY ---
Discharge Summary Admit Date: 12/01/21 Discharge Date: 12/02/21 Discharging Provider: John Dejesustrenée Code Status: Attempt Resuscitation Condition at Discharge: Stable Discharge Disposition: 01 Home, Self Care - DIAGNOSES Admission Diagnoses: Acute respiratory failure with hypoxia COVID-19 Acute kidney injury History of COPD Hypertension Discharge Diagnoses with Status of Each Condition: Acute respiratory failure with hypoxia: Stablw. Likely 2/2 COVID. O2Sat on room air on day of discharge was 92% COVID-19: Patient received 2 doses of remdesivir. Dexamethasone 6mg po daily X7 days prescribed. Complete Z-lisa dose Acute kidney injury History of COPD: Not in exacerbation Hypertension: Chronic. Continue home medications - HPI History of Present Illness: Patient is a 76-year-old frail female with medical history significant for hypertension, COPD and chronic pain who presented to the ED with hypoxia. She i s unvaccinated for COVID-19 and over the past couple of days everybody in her household has come down with COVID 19. Over the past couple days she has become progressively weak with productive cough. As a result a family member called EMS to bring her to the emergency department. It was reported that her oxygen saturation was 86% on room air. In the emergency department her oxygen saturation was 83% on room air. Chest x-ray showed mild basilar and perihilar opacities for which differential included bronchitis/aspiration, infection and atelectasis. As a result of her presentation she is being admitted for continued treatment. At bedside she denies chest pain, abdominal pain, nausea or vomiting she has mild dyspnea. She has significantly diminished breath sounds on auscultation. She also has very dry oral mucosa. - HOSPITAL COURSE Hospital Course: Patient is a 76-year-old female who was admitted on 12/01/2021 with weakness and hypoxia. Work-up in the ED included a COVID-19 test which came back positive. She was noted to have an oxygen saturation of 83% on room air. Chest x-ray showed mild basilar and perihilar opacities raising possibility of bronchitis/aspiration versus other infection. She was also noted to have very dry oral mucosa. She had a creatinine of 1.8 with estimated GFR of 27. She was placed on supplemental oxygen via nasal cannula with oxygen saturation of 96% on 3 L. She was started on Rocephin, azithromycin, remdesivir and dexamethasone IV. The following day she was insistent on having the supplemental oxygen off. Off of oxygen her oxygen saturation was 92% on room air. She was insistent on being discharged home. Consequently she was discharged home. She was prescribed dexamethasone 6 mg p.o. daily x7 days. She was also prescribed azithromycin 500 mg p.o. x1. She may follow-up with her primary care physician as needed. - ALLERGIES Allergies/Adverse Reactions: Allergies Allergy/AdvReac Type Severity Reaction Status Date / Time naloxone Allergy Anaphylaxis Verified 06/06/21 10:22 Penicillins Allergy Anaphylaxis Verified 06/06/21 10:22 - MEDICATIONS Home Medications: Ambulatory Orders Medication Instructions Recorded Confirmed hydroCHLOROthiazide [Hydrodiuril] 12.5 mg PO DAILY #30 cap 06/06/21 07/30/21 Chlorthalidone 0.5 tab PO DAILY #30 tablet 07/30/21 Clonidine HCl [Clonidine HCl ER] 0.1 mg PO BID #60 07/30/21 buprenorphine HCL [Buprenorphine 1 tab ORAL BID 07/30/21 07/30/21 HCl] Azithromycin 500 mg PO ONCE 1 Days #2 tablet 12/02/21 Dexamethasone [Decadron] 6 mg PO DAILY 7 Days #7 tablet 12/02/21 - PHYSICAL EXAM AT DISCHARGE General Appearance: positive: No acute distress, Alert Eyes Bilateral: positive: PERRL, EOMI ENT: positive: No signs of dehydration Neck: positive: No JVD, Trachea midline Respiratory: positive: Chest non-tender, No respiratory distress, Other (Diminished and coarse breath sounds) Cardiovascular: positive: Regular rate & rhythm, No murmur Abdomen: positive: Non-tender, No organomegaly, Nml bowel sounds, No distention. negative: Guarding, Rebound Back: positive: Nml inspection Skin: positive: Color nml, No rash, Warm, Dry Extremities: positive: Non-tender, Full ROM, Nml appearance, No pedal edema Neurologic/Psychiatric: positive: Oriented x3, Mood/affect nml - LABS Result Diagrams: 12/02/21 07:27 12/01/21 13:53 - TIME SPENT Time Spent in Discharge (Minutes): 15
--- NOTE | 2021-12-02 15:35 | Discharge Plan ---
Discharge Plan Problem Reviewed?: Yes Disposition: Home, Self Care Condition: Stable Prescriptions: Azithromycin 500 mg PO ONCE 1 Days #2 tablet Dexamethasone [Decadron] 6 mg PO DAILY 7 Days #7 tablet Diet: Regular Activity Restrictions: Activity as Tolerated Weight Bearing: Full Weight Health Concerns: Patient is a 76-year-old female who was admitted on 12/01/2021 with weakness and hypoxia. Work-up in the ED included a COVID-19 test which came back positive. She was noted to have an oxygen saturation of 83% on room air. Chest x-ray showed mild basilar and perihilar opacities raising possibility of bronchitis/aspiration versus other infection. She was also noted to have very dry oral mucosa. She had a creatinine of 1.8 with estimated GFR of 27. She was placed on supplemental oxygen via nasal cannula with oxygen saturation of 96% on 3 L. She was started on Rocephin, azithromycin, remdesivir and dexamethasone IV. The following day she was insistent on having the supplemental oxygen off. Off of oxygen her oxygen saturation was 92% on room air. She was insistent on being discharged home. Consequently she was discharged home. She was prescribed dexamethasone 6 mg p.o. daily x7 days. She was also prescribed azithromycin 500 mg p.o. x1. She may follow-up with her primary care physician as needed. No Smoking: If you smoke, Please STOP! Call for help.
[2021-12-02 16:22] VITALS: BP 156/73
== END 2021-12-02 18:21 | disposition home or self-care (01) | DRG 177 ==
LOC: ED 12:44 → MS2 14:49
PROVIDERS: ADMIT Internal Medicine; ATTEND Internal Medicine
PROC: XW033E5 Introduction of Remdesivir Anti-infective into Peripheral Vein, Percutaneous Approach, New Technology Group 5 (ICD-10-PCS; principal; 2021-12-01)
DX: U07.1 COVID-19 (principal); J12.82 Pneumonia due to coronavirus disease 2019; J96.01 Acute respiratory failure with hypoxia; J44.0 Chronic obstructive pulmonary disease with (acute) lower respiratory infection; R09.02 Hypoxemia; N17.9 Acute kidney failure, unspecified; F17.200 Nicotine dependence, unspecified, uncomplicated; J44.9 Chronic obstructive pulmonary disease, unspecified; I10 Essential (primary) hypertension; G89.29 Other chronic pain; I25.10 Atherosclerotic heart disease of native coronary artery without angina pectoris; K21.9 Gastro-esophageal reflux disease without esophagitis; H54.7 Unspecified visual loss; H91.90 Unspecified hearing loss, unspecified ear; F32.A Depression, unspecified; F17.210 Nicotine dependence, cigarettes, uncomplicated; Z28.310 Unvaccinated for COVID-19; Z79.899 Other long term (current) drug therapy; Z88.0 Allergy status to penicillin; Z88.8 Allergy status to other drugs, medicaments and biological substances; Z90.49 Acquired absence of other specified parts of digestive tract
CPT/HCPCS: 36415; 71045; 80053; 83690; 85025; 87633; 93005; 94640; 96361; 96374; 99284; 99285; A9270; J1650; J7626; 80048

== ENCOUNTER 2022-03-12 15:20 | Emergency (ER) | payer MEDICARE ==
[2022-03-12 15:33] VITALS: BP 130/67
[2022-03-12 16:08] LABS: BASOPHILS # (AUTO) 0.1 10^3/uL (0.0-0.1); BASOPHILS % (AUTO) 1.1 %; EOSINOPHILS # (AUTO) 0.2 10^3/uL (0.0-0.7); EOSINOPHILS % (AUTO) 2.8 %; HCT - HEMATOCRIT 43.1 % (37.0-47.0); HGB - HEMOGLOBIN 14.1 g/dL (12.0-16.0); LYMPHOCYTES # (AUTO) 1.3 10^3/uL (1.5-3.5); LYMPHOCYTES % (AUTO) 23.3 %; MEAN CORPUSCULAR HEMOGLOBIN 29.3 pg (27.0-31.0); MEAN CORPUSCULAR HGB CONC 32.7 g/dL (32.0-36.0); MEAN CORPUSCULAR VOLUME 89.4 fL (81.0-99.0); MEAN PLATELET VOLUME 8.6 fL (7.9-10.8); MONOCYTES # (AUTO) 0.4 10^3/uL (0.0-1.0); MONOCYTES % (AUTO) 6.5 %; NEUTROPHILS # (AUTO) 3.8 10^3/uL (1.5-6.6); NEUTROPHILS % (AUTO) 66.1 %; PLT - PLATELET COUNT 175 10^3/uL (130-450); RED BLOOD COUNT 4.82 10^6/uL (4.20-5.40); RED CELL DISTRIBUTION WIDTH 12.7 % (12.0-15.0); WHITE BLOOD COUNT 5.7 x10^3/uL (4.8-10.8)
--- NOTE | 2022-03-12 16:19 | XRAY Report ---
PROCEDURE: Chest 1 View X-Ray INDICATIONS: Chest pain TECHNIQUE: One view of the chest was acquired. COMPARISON: None. FINDINGS: Surgical changes and devices: None. Lungs and pleura: No pleural effusions or pneumothorax. Lungs are clear. Mediastinum: Mediastinal contours appear normal. Heart size is normal. Bones and chest wall: No suspicious bony lesions. Overlying soft tissues appear unremarkable. IMPRESSION: No acute process. Reviewed by: Rajinder Calvillo MD on 03/12/2022 4:18 PM [facility] Approved by: Rajinder Calvillo MD on 03/12/2022 4:18 PM [facility] Station ID: [id number]
[2022-03-12 16:22] LABS: ALBUMIN 4.6 g/dL (3.2-5.5); ALBUMIN/GLOBULIN RATIO 1.3 (1.0-2.2); ALKALINE PHOSPHATASE 98 IU/L (42-121); ALT ALANINE AMINOTRANSFERASE < 10 IU/L (10-60); AST ASPARTATE AMINOTRANSFERASE 17 IU/L (10-42); BILIRUBIN,TOTAL 0.9 mg/dL (0.2-1.0); BUN - BLOOD UREA NITROGEN 26 mg/dL (6-20); CALCIUM 9.6 mg/dL (8.5-10.3); CARBON DIOXIDE - CO2 27 mmol/L (21-32); CHLORIDE 103 mmol/L (101-111); CREATININE 1.8 mg/dL (0.4-1.0); GFR - MDRD 27 (>89); GLUCOSE 118 mg/dL (70-100); LIPASE 27 U/L (22-51); POTASSIUM 3.9 mmol/L (3.5-5.0); SODIUM 135 mmol/L (135-145); TOTAL PROTEIN 8.1 g/dL (6.7-8.2)
== END 2022-03-12 19:15 | disposition left against medical advice (07) ==
LOC: ED 15:20
DX: Z53.21 Procedure and treatment not carried out due to patient leaving prior to being seen by health care provider (principal)
CPT/HCPCS: 36415; 80053; 83690; 83880; 84443; 84484; 85025; 93005

== ENCOUNTER 2024-07-20 15:57 | Inpatient (IN) ==
[2024-07-20 17:13] LABS: BASOPHILS % (AUTO) 0.3 %; EOSINOPHILS % (AUTO) 0.3 %; HCT - HEMATOCRIT 43.7 % (37.0-47.0); HGB - HEMOGLOBIN 13.4 g/dL (12.0-16.0); LYMPHOCYTES # (AUTO) 1.4 10^3/uL (1.5-3.5); LYMPHOCYTES % (AUTO) 33.8 %; MEAN CORPUSCULAR HEMOGLOBIN 27.8 pg (27.0-31.0); MEAN CORPUSCULAR HGB CONC 30.7 g/dL (32.0-36.0); MEAN CORPUSCULAR VOLUME 90.7 fL (81.0-99.0); MEAN PLATELET VOLUME 9.9 fL (7.9-10.8); MONOCYTES # (AUTO) 0.4 10^3/uL (0.0-1.0); NEUTROPHILS # (AUTO) 2.2 10^3/uL (1.5-6.6); NEUTROPHILS % (AUTO) 55.3 %; PLT - PLATELET COUNT 142 10^3/uL (130-450); RED BLOOD COUNT 4.82 10^6/uL (4.20-5.40); RED CELL DISTRIBUTION WIDTH 13.2 % (12.0-15.0)
[2024-07-20 17:29] LABS: ALBUMIN 3.9 g/dL (3.2-5.5); ALBUMIN/GLOBULIN RATIO 1.1 (1.0-2.2); BILIRUBIN,TOTAL 0.3 mg/dL (0.2-1.0); CALCIUM 8.5 mg/dL (8.5-10.3); CREATININE 4.6 mg/dL (0.6-1.3); POTASSIUM 4.5 mmol/L (3.5-4.5); TOTAL PROTEIN 7.5 g/dL (6.4-8.9)
--- NOTE | 2024-07-20 19:14 | XRAY Report ---
PROCEDURE: XR Chest 1V INDICATIONS: cough TECHNIQUE: One view of the chest was acquired. COMPARISON: 02/25/2024 FINDINGS: Surgical changes and devices: Right axillary surgical clips. Lungs and pleura: Low lung volumes. Bibasilar platelike alveolar opacities, left more dense than rig ht, right worse compared to the prior exam. Upper lung zones are aerated. No pneumothorax. Mediastinum: Stable cardiomediastinal contour, partially obscured by low lung volumes. No significan t venous congestion. Normal aortic caliber with coarse calcification. Bones and chest wall: No suspicious bony lesions. Remote left rib trauma. Overlying soft tissues janice ear unremarkable. IMPRESSION: Low lung volumes with chronic left base opacity and developing horizontal right base opacity, probabl y atelectasis due to hypoinflation. Underlying infection cannot be excluded. Stable cardiomediastinal contour. Reviewed by: Julee Myers MD on 07/20/2024 7:13 PM PDT Approved by: Julee Myers MD on 07/20/2024 7:13 PM PDT Station ID: [id number]
[2024-07-20] MEDS: SODIUM CHLORIDE 0.9% 1,000 ML IV STA (19:50)
[2024-07-20] MEDS: levoFLOXacin 500 MG/100 ML 500 MG/100 ML BAG IV STA (20:48)
--- NOTE | 2024-07-20 21:36 | ED Physician Documentation ---
History of Present Illness Stated complaint Stated Complaint: DEHYDRATED/DIARRHEA Chief complaint Chief Complaint: Abd Pain History obtained from History obtained from: Patient History of Present Illness Timing: Prior to arrival Additonal information Additional information: Patient 79-year-old female presenting to the emergency department who has been feeling unwell with diarrhea decreased appetite abdominal pain occasional congestion cough shortness of breath no nausea or vomiting. Patient brought in by her cousin she did not want to come in. She has past medical history of hypertension and Meds/Allgy Home Medications Ambulatory Orders Medication Instructions Recorded Confirmed albuterol sulfate 90 mcg/actuation 1 inh inhalation QID PRN shortness 04/01/24 04/01/24 aerosol inhaler (Ventolin HFA) of breath or wheezing #8.5 grams amlodipine 10 mg tablet (Norvasc) 10 mg PO QDAY #90 tabs 04/01/24 04/01/24 losartan 25 mg tablet 25 mg PO QDAY #90 tabs 04/01/24 04/01/24 tamsulosin 0.4 mg capsule 0.4 mg PO QDAY #90 caps 05/26/24 mirtazapine 15 mg tablet See Rx Instructions .Route 06/30/24 .COMPLEX #90 tabs Allergies Allergies Allergy/AdvReac Type Severity Reaction Status Date / Time Penicillins Allergy Anaphylaxis Verified 07/20/24 16:15 PFSH Active Problems All Active Problems (Updated 07/20/24 @ 21:37 by Sophia Colon PA-C) Bilateral pneumonia (Acute) AMPARO (acute kidney injury) (Acute) Social History Social History (Updated 04/01/24 @ 15:02 by Kristopher Stubbs MA) Smoking Status: Former smoker Number of Years Smoked: 58 How many cigarettes a day do you smoke? (20 cigarettes=1 Pk): 10 Do you dip or chew tobacco?: No Do you vape?: No Patient requests smoking cessation consult: No Initiate information on smoking cessation: No Relationship: Caregiver Do you feel safe in your home environment?: Yes Suffered physical, verbal, emotional, or financial abuse?: No History of Abuse: No POLST Patient has POLST: No POLST Status: Full Code Exam Constitutional Pateint appears ill on exam, pale, dry mucous membranes, dry mucous membranes HENMT Dry mucous membranes Eyes PERRL and EOMs intact bilaterally Neck/C-Spine visual inspection normal Lymph no lymphadenopathy noted Chest inspection of chest normal Respiratory breath sounds equal bilaterally and normal respiratory effort Cardiovascular normal heart rate noted, regular rhythm noted, no gallop and no rub Gastrointestinal abdomen normal to inspection, abdomen soft to palpation and nontender to palpation Abdominal distention active bowel sounds appreciated. Soft no rebound or guarding. Genitourinary no CVA tenderness and bladder normal to palpation Back/Pelvis spine normal to inspection Extremities normal to inspection No lower leg swelling. Skin skin color normal Results Vitals Vitals: Vital Signs - 24 hr 07/20/24 16:16 07/20/24 18:23 07/20/24 20:00 Temperature 36.9 C 36.5 C 36.5 C Temperature Source Oral Tympanic Tympanic Pulse Rate 80 72 70 Respiratory Rate 18 22 20 Blood Pressure 90/52 L 107/60 108/60 O2 Saturation 94 92 94 O2 Source Room air Room air Room air Pain Intensity 0 4 4 Oxygen O2 Source Room air Labs Labs: Laboratory Tests 07/20/24 07/20/24 17:06 20:00 WBC 4.0 L RBC 4.82 Hgb 13.4 Hct 43.7 MCV 90.7 MCH 27.8 MCHC 30.7 L RDW 13.2 Plt Count 142 MPV 9.9 Neut # (Auto) 2.2 Lymph # (Auto) 1.4 L [place] # (Auto) 0.4 Eos # (Auto) 0.0 Baso # (Auto) 0.0 Absolute Nucleated RBC 0.00 Nucleated RBC % 0.0 Sodium 132 L Potassium 4.5 Chloride 98 L Carbon Dioxide 20 L Anion Gap 14.0 H BUN 71 H Creatinine 4.6 H Estimated GFR (MDRD) 9 L Glucose 101 Calcium 8.5 Magnesium 2.4 H Total Bilirubin 0.3 AST 19 ALT 8 L Alkaline Phosphatase 83 B-Natriuretic Peptide 23 Total Protein 7.5 Albumin 3.9 Globulin 3.6 Albumin/Globulin Ratio 1.1 Lipase 89 H Nasal Adenovirus (PCR) NOT DETECTED Nasal B. parapertussis DNA (PCR) NOT DETECTED Nasal Coronavir 229E PCR NOT DETECTED Nasal Coronavir HKU1 PCR NOT DETECTED Nasal Coronavir NL63 PCR NOT DETECTED Nasal Coronavir OC43 PCR NOT DETECTED Nasal Enterovir/Rhinovir PCR NOT DETECTED Nasal Influ A H1 2009 PCR DETECTED A Nasal Influenza B PCR NOT DETECTED Nasal Influenza A PCR NOT DETECTED Nasal Parainfluen 1 PCR NOT DETECTED Nasal Parainfluen 2 PCR NOT DETECTED Nasal Parainfluen 3 PCR NOT DETECTED Nasal Parainfluen 4 PCR NOT DETECTED Nasal RSV (PCR) NOT DETECTED Nasal B.pertussis DNA PCR NOT DETECTED Nasal C.pneumoniae (PCR) NOT DETECTED Fabiano Human Metapneumo PCR NOT DETECTED Nasal M.pneumoniae (PCR) NOT DETECTED Nasal SARS-CoV-2 (PCR) NOT DETECTED PD Medical Decision Making ED course Complexity details: reviewed old records and reviewed results ED course: Patient 79-year-old female brought in by her cousin from home for history of stroke she presents with increased cough fatigue diarrhea decreased appetite. Symptoms have been going on since yesterday but patient significantly worse today with increased cough congestion and symptoms. Labs significant for mild leukopenia with significant AMPARO with a creatinine of 4.6. IV started here in the ED to be given fluids but patient became agitated and blue. Will repeat here in the ED. Pending UA at this time however chest x- ray shows signs of bilateral pneumonia.IV antibiotics started after line was placed in left upper arm 22-gauge. Patient tolerated this poorly but was able to be done and it appears stable. 3 L of IV normal saline will be given here given concern for pneumonia with concern for significant AMPARO secondary to possible sepsis versus dehydration from decreased appetite and diarrhea. Patient additionally tested positive for influenza here in the ED. She has mild anion gap of 14. Patient agreeable to admission, and was admitted under Dr. [place]. Pending UA at this time. Patient declined any breathing treatment any bladder scan here in the ED. She declines any further blood draws at this time. Discharge Plan Discharge Patient Disposition: 66 [facility] DC/Xfer Condition: Stable Clinical Impression: AMPARO (acute kidney injury), Bilateral pneumonia Prescriptions: No Action tamsulosin 0.4 mg capsule 0.4 mg PO QDAY Qty: 90 3RF mirtazapine 15 mg tablet See Rx Instructions .ROUTE .COMPLEX Qty: 90 0RF Dose Instruction: take 1 tablet by mouth at bedtime Rx Instructions: take 1 tablet by mouth at bedtime amlodipine [Norvasc] 10 mg tablet 10 mg PO QDAY Qty: 90 3RF Rx Instructions: x7 days per discharge orders 03/24/24 losartan 25 mg tablet 25 mg PO QDAY Qty: 90 3RF Rx Instructions: x7 days per discharge orders 03/24/24 albuterol sulfate [Ventolin HFA] 90 mcg/actuation HFA aerosol inhaler 1 inh inhalation QID PRN (Reason: shortness of breath or wheezing) Qty: 8.5 2RF Print Language: Tongan
[2024-07-20 21:38] LABS: B. PARAPERTUSSIS- RESP PCR PAN NOT DETECTED; B. PERTUSSIS- RESP PCR PANEL NOT DETECTED; C. PNEUMONIAE- RESP PCR PANEL NOT DETECTED; CORONAVIRUS 229E-RESP PCR NOT DETECTED; CORONAVIRUS HKU1-RESP PCR NOT DETECTED; CORONAVIRUS NL63-RESP PCR NOT DETECTED; CORONAVIRUS OC43-RESP PCR NOT DETECTED; HUMAN METAPNEUMOVIRUS NOT DETECTED; INFLUENZA A H1 2009- RESP PCR DETECTED; INFLUENZA A- RESP PCR PANEL NOT DETECTED; INFLUENZA B - RESP PCR PANEL NOT DETECTED; M. PNEUMONIAE- RESP PCR PANEL NOT DETECTED; PARAINFLUENZA VIRUS 1 NOT DETECTED; PARAINFLUENZA VIRUS 2 NOT DETECTED; PARAINFLUENZA VIRUS 4 NOT DETECTED; RHINOVIRUS/ENTEROVIRUS NOT DETECTED; RSV- RESP PCR PANEL NOT DETECTED; SARS-CoV-2 -RESP PCR PANEL NOT DETECTED
--- NOTE | 2024-07-20 22:08 | HISTORY & PHYSICAL EXAMINATION ---
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 Patient lives with her cousin who encouraged her to come in to ER for evaluation. Patient has reportedly had increased cough, fatigue, diarrhea and poor appetite. Per RN patient has not had any N/V/D since being in the ER. Afebrile, patient denies fevers/chills. CXR shows bibasilar pneumonia, Influenza A positive. AMPARO with Cr 4.6. Unable to obtain further history as patient is very hard of hearing, RN at bedside to assist. Patient did de-sat ot 86% after receiving IV fluid bolus, now on 2 L NC, no evidence of respiratory distress at rest. In the ER patient has refused bladder scan, nebulizer treatment and further labs (lactic acid, UA). PFSH Active Problems All Active Problems (Updated 07/20/24 @ 21:37 by Sophia Colon PA-C) Bilateral pneumonia (Acute) AMPARO (acute kidney injury) (Acute) Social History Social History (Updated 04/01/24 @ 15:02 by Kristopher Stubbs MA) Smoking Status: Former smoker Number of Years Smoked: 58 How many cigarettes a day do you smoke? (20 cigarettes=1 Pk): 10 Do you dip or chew tobacco?: No Do you vape?: No Patient requests smoking cessation consult: No Initiate information on smoking cessation: No Relationship: Caregiver Do you feel safe in your home environment?: Yes Suffered physical, verbal, emotional, or financial abuse?: No History of Abuse: No POLST Patient has POLST: No POLST Status: Full Code Meds/Allgy Home Medications Ambulatory Orders Medication Instructions Recorded Confirmed albuterol sulfate 90 mcg/actuation 1 inh inhalation QID PRN shortness 04/01/24 04/01/24 aerosol inhaler (Ventolin HFA) of breath or wheezing #8.5 grams amlodipine 10 mg tablet (Norvasc) 10 mg PO QDAY #90 tabs 04/01/24 04/01/24 losartan 25 mg tablet 25 mg PO QDAY #90 tabs 04/01/24 04/01/24 tamsulosin 0.4 mg capsule 0.4 mg PO QDAY #90 caps 05/26/24 mirtazapine 15 mg tablet See Rx Instructions .Route 06/30/24 .COMPLEX #90 tabs Allergies Allergies Allergy/AdvReac Type Severity Reaction Status Date / Time Penicillins Allergy Anaphylaxis Verified 07/20/24 16:15 Exam Constitutional normal general appearance, no apparent distress, average body habitus and alert HENMT normocephalic and hearing grossly abnormal (very hard of hearing) Respiratory normal respiratory effort (at rest ) Cardiovascular normal heart rate noted (per VS HR 81 ) and no edema (per RN exam ) Gastrointestinal nontender to palpation (per RN exam ) Conclusion/Plan Lab Results Lab results reviewed: Yes 07/20/24 17:06 07/20/24 17:06 Diagnostic Imaging Results Diagnostic Imaging Results: positive Final report reviewed Other Other Results/Comments: Assessment/Plan: Bibasilar pneumonia Influenza A positive Acute hypoxia -Possible superimposed bacterial component, patient has received IV levaquin in ER, continue (renally dosed) -Tamiflu ordered -2 L NC, continue to monitor closely, wean as tolerated AMPARO -Likely related to poor PO intake, ?diarrhea, borderline hypotension at admission -Cr 4.6, Cr 0.9 on labs Feb 2024 -Potassium stable, noted mild hypoNa 132 -Patient has received IV fluid bolus in ER, continue gentle IV fluid hydration overnight, caution if worsening hypoxia -Trend labs -Hold nephrotoxic agents History of HTN -Hold Losartan Hearing loss -Noted Full code (per ER provider documentation) DvT ppx: Heparin sc Telemedicine Consult Details Provider Location & Consult Time Telemedicine consultation conducted via videoconferencing?: Yes List names and roles of persons who participated in consult:: , RN, patient Telemedicine provider location:: [facility]
[2024-07-20] MEDS ORDERED: SODIUM CHLORIDE FLUSH 0.9% 10 ML SYRINGE IVP PRN (22:16)
[2024-07-20] MEDS ORDERED: ONDANSETRON 4 MG/2 ML VIAL IVP PRN (22:16)
[2024-07-21] MEDS: SODIUM CHLORIDE 0.9% 1,000 ML IV SCH (00:37)
[2024-07-21] MEDS: SODIUM CHLORIDE FLUSH 0.9% 10 ML SYRINGE IVP SCH (00:38)
[2024-07-21] MEDS: MIRTAZAPINE 15 MG TABLET PO SCH (00:38)
[2024-07-21 05:34] LABS: BILIRUBIN,URINE NEGATIVE (NEGATIVE); GLUCOSE, URINE (UA) NEGATIVE (NEGATIVE); KETONES,URINE (UA) NEGATIVE (NEGATIVE); LEUKOCYTE ESTERASE, URINE SMALL (NEGATIVE); NITRITE,URINE NEGATIVE (NEGATIVE); OCCULT BLOOD,URINE TRACE-INTA (NEGATIVE); PH,URINE 5.5 PH (5.0-7.5); PROTEIN,URINE 30 mg/dL (NEGATIVE); UROBILINOGEN,URINE 0.2 (NORMAL) E.U./dL (NORMAL)
[2024-07-21 05:37] LABS: CLARITY,URINE HAZY (CLEAR)
[2024-07-21 05:43] LABS: BACTERIA,URINE Few /HPF (None Seen); RBC,URINE 0-5 /HPF (0-5); SQUAMOUS EPITHELIAL CELL,UR FEW Squamous (<= Few)
[2024-07-21] MEDS: TAMSULOSIN 0.4 MG CAPSULE PO SCH (08:30)
[2024-07-21] MEDS: HEPARIN 5,000 UNIT/ML VIAL SUBQ SCH (08:30)
[2024-07-21] MEDS: OSELTAMIVIR 30 MG CAPSULE PO SCH (08:30)
[2024-07-21 09:04] LABS: HCT - HEMATOCRIT 34.5 % (37.0-47.0); HGB - HEMOGLOBIN 10.9 g/dL (12.0-16.0); MEAN CORPUSCULAR HEMOGLOBIN 28.5 pg (27.0-31.0); MEAN CORPUSCULAR HGB CONC 31.6 g/dL (32.0-36.0); MEAN CORPUSCULAR VOLUME 90.1 fL (81.0-99.0); MEAN PLATELET VOLUME 9.3 fL (7.9-10.8); RED BLOOD COUNT 3.83 10^6/uL (4.20-5.40); RED CELL DISTRIBUTION WIDTH 13.1 % (12.0-15.0); WHITE BLOOD COUNT 2.5 x10^3/uL (4.8-10.8)
[2024-07-21 09:15] LABS: CALCIUM 7.7 mg/dL (8.5-10.3); POTASSIUM 3.8 mmol/L (3.5-4.5)
[2024-07-21] MEDS: guaiFENesin 600 MG TABLET PO SCH (14:07)
[2024-07-21] MEDS: LACTATED RINGERS 1,000 ML IV SCH (14:08)
--- NOTE | 2024-07-21 14:10 | PHARMACY PROGRESS NOTE ---
Best Possible Medication History Admit Date and Time: 07/20/24 2216 Home Medications Medication Instructions Recorded Confirmed Type albuterol sulfate 90 mcg/actuation 1 inh inhalation Q4H PRN shortness 07/21/24 07/21/24 History aerosol inhaler (Ventolin HFA) of breath or wheezing amlodipine 10 mg tablet (Norvasc) 10 mg PO QDAY 07/21/24 07/21/24 History losartan 25 mg tablet 25 mg PO DAILY 07/21/24 07/21/24 History mirtazapine 15 mg tablet See Rx Instructions .Route 07/21/24 07/21/24 Rx .COMPLEX #90 tabs tamsulosin 0.4 mg capsule 0.4 mg PO DAILY 07/21/24 07/21/24 History Processed by: Pharmacy Medications reviewed in ED?: Yes Medication History completed: Yes Patient Interview: Pt unable to participate Secondary Source(s): Pharmacy records and Insurance records [facility] Statement: As the person ultimately responsible for medication therapy, providers are able to order a medication from an existing home medication list in [facility] via the "Reconcile Routine" prior to Confirmation of that medication by ict support technicians. Such practice is discouraged except when the physician, in their clinical judgment, deems that a medical need exists for a medication without regard to previous use.
[2024-07-21] MEDS: MULTIVITAMIN W/MINERALS TABLET PO SCH (17:11)
[2024-07-21] MEDS: LACTATED RINGERS 1,000 ML IV ONE (17:12)
--- NOTE | 2024-07-21 17:29 | Discharge Summary ---
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 Patient lives with her cousin who encouraged her to come in to ER for evaluation. Patient has reportedly had increased cough, fatigue, diarrhea and poor appetite. Per RN patient has not had any N/V/D since being in the ER. Afebrile, patient denies fevers/chills. CXR shows bibasilar pneumonia, Influenza A positive. AMPARO with Cr 4.6. Unable to obtain further history as patient is very hard of hearing, RN at bedside to assist. Patient did de-sat ot 86% after receiving IV fluid bolus, now on 2 L NC, no evidence of respiratory distress at rest. In the ER patient has refused bladder scan, nebulizer treatment and further labs (lactic acid, UA). HOSPITAL COURSE Hospital Course: Patient was admitted into the hospital and her kidney function improved with administration of IV fluids. At time of my interview, I was able to wean her off to room air. I ordered a oxygen desaturation study, which she passed. Procalcitonin was checked and found to be negative. She is being discharged home to her prior living situation with a home health referral as well as a course of Tamiflu, azithromycin, Mucinex ALLERGIES Allergies Allergy/AdvReac Type Severity Reaction Status Date / Time Penicillins Allergy Anaphylaxis Verified 07/20/24 16:15 MEDICATIONS Ambulatory Orders Medication Instructions Recorded Confirmed albuterol sulfate 90 mcg/actuation 1 inh inhalation Q4H PRN shortness 07/21/24 07/21/24 aerosol inhaler (Ventolin HFA) of breath or wheezing amlodipine 10 mg tablet (Norvasc) 10 mg PO QDAY 07/21/24 07/21/24 azithromycin 500 mg tablet 500 mg PO DAILY 2 days #2 tabs 07/21/24 guaifenesin 600 mg tablet, 1,200 mg (2 x 600 mg) PO BID 30 07/21/24 extended release 12 hr (Mucinex) days #120 tabs losartan 25 mg tablet 25 mg PO DAILY 07/21/24 07/21/24 mirtazapine 15 mg tablet See Rx Instructions .Route 07/21/24 07/21/24 .COMPLEX #90 tabs oseltamivir 30 mg capsule 30 mg PO DAILY 4 days #4 caps 07/21/24 tamsulosin 0.4 mg capsule 0.4 mg PO DAILY 07/21/24 07/21/24 PHYSICAL EXAM AT DISCHARGE General Appearance: positive No acute distress, Alert and Other (Very hard of hearing) Eyes Bilateral: positive Normal inspection ENT: positive ENT inspection nml Neck: positive Nml inspection Respiratory: positive Chest non-tender and Rhonchi Cardiovascular: positive Regular rate & rhythm Peripheral Pulses: positive 2+ Abdomen: positive Non-tender Skin: positive Color nml Extremities: positive Non-tender; negative Pedal edema Neurologic/Psychiatric: positive Oriented x3 LABS 07/21/24 08:52 07/21/24 08:52 FOLLOW UP Follow Up: With PCP TIME SPENT Time Spent in Discharge (Minutes): 35 Discharge Plan Discharge Patient Disposition: Home, Self Care Condition: Stable Prescriptions: New guaifenesin [Mucinex] 600 mg Tablet Extended Release 12hr 1,200 mg PO BID 30 Days Qty: 120 0RF azithromycin 500 mg tablet 500 mg PO DAILY 2 Days Qty: 2 0RF oseltamivir 30 mg Capsule 30 mg PO DAILY 4 Days Qty: 4 0RF Continued mirtazapine 15 mg tablet See Rx Instructions .ROUTE .COMPLEX Qty: 90 2RF Dose Instruction: take 1 tablet by mouth at bedtime Rx Instructions: take 1 tablet by mouth at bedtime tamsulosin 0.4 mg capsule 0.4 mg PO DAILY amlodipine [Norvasc] 10 mg tablet 10 mg PO QDAY losartan 25 mg tablet 25 mg PO DAILY Rx Instructions: x7 days per discharge orders 03/24/24 albuterol sulfate [Ventolin HFA] 90 mcg/actuation HFA aerosol inhaler 1 inh inhalation Q4H PRN (Reason: shortness of breath or wheezing) Activity Restrictions: Activity as Tolerated Diet: Regular Health Concerns: You came into the hospital with dehydration secondary to influenza. You also required 2 L of oxygen because of the severity of your influenza. You were admitted into the hospital so that you could be worked up for your hypoxia as well as your acute kidney injury. Your kidney function has improved greatly with IV fluid resuscitation. A procalcitonin level was checked, which shows that you do not have a superimposed bacterial pneumonia. I am sending you home with a course of Tamiflu, Mucinex, azithromycin. While you do not have a bacterial pneumonia, azithromycin has been shown to have some anti-inflammatory properties which should help with resolution of your respiratory symptoms. Please remain as active as possible. I have ordered a home health referral, so people will be coming out to your house to help you with your activities of daily living and to help returning to a normal state of activity. Please return to the hospital if you have fevers that are not managed with Tylenol or if you begin to experience shortness of breath or altered mental status Print Language: Persian Patient Instructions: Flu Stand Alone Forms: PCP List
--- NOTE | 2024-07-21 19:42 | PROVIDER PROGRESS NOTE ---
Subjective Prog Note Date Prog Note Date: 07/21/24 Subjective Pt reports feeling: Improved Current Medications Current Medications Current Medications: Current Medications Generic Name Dose Route Start Last Admin Trade Name Peri PRN Reason Stop Dose Admin Acetaminophen 650 mg 07/20/24 22:16 Acetaminophen 325 Mg Tablet PO Q4HR PRN Pain 1 to 4, or Fever Guaifenesin 1,200 mg 07/21/24 13:00 07/21/24 14:07 Guaifenesin 600 Mg Tablet PO 1,200 mg BID PEMA Administration Heparin Sodium (Porcine) 5,000 unit 07/21/24 09:00 07/21/24 08:30 Heparin 5,000 Unit/Ml Vial SUBQ 5,000 unit BID PEMA Administration Lactated Ringer's 1,000 mls @ 150 mls/hr 07/21/24 13:00 07/21/24 17:04 Lr IV 07/22/24 02:19 0 mls/hr .Q6H40M PEMA Infusion Mirtazapine 15 mg 07/20/24 23:00 07/21/24 00:38 Mirtazapine 15 Mg Tablet PO 15 mg HS PEMA Administration Multivitamins/Minerals 1 tab 07/21/24 17:00 07/21/24 17:24 Multivitamin W/Minerals Tablet PO Not Given DAILYWM PEMA Ondansetron HCl 4 mg 07/20/24 22:16 Ondansetron 4 Mg/2 Ml Vial IVP Q6HR PRN Nausea / Vomiting Oseltamivir Phosphate 30 mg 07/21/24 09:00 07/21/24 08:30 Oseltamivir 30 Mg Capsule PO 30 mg DAILY PEMA Administration Sodium Chloride 10 ml 07/20/24 22:16 Sodium Chloride Flush 0.9% 10 Ml Syringe IVP PRN PRN NEEDED PER PROVIDER ORDERS Sodium Chloride 10 ml 07/21/24 01:00 07/21/24 17:11 Sodium Chloride Flush 0.9% 10 Ml Syringe IVP 10 ml 0100,0900,1700 PEMA Administration Tamsulosin HCl 0.4 mg 07/21/24 09:00 07/21/24 08:30 Tamsulosin 0.4 Mg Capsule PO 0.4 mg DAILY PEMA Administration Objective Vital Signs/Intake & Output Reviewed Vital Signs: Yes Vital Signs: Vital Signs x48h Temp Pulse Resp BP Pulse Ox O2 Flow Rate 07/21/24 16:56 2 03/18/25 16:22 36.7 C 73 20 138/66 H 91 L Intake & Output: Intake & Output 07/18/24 07/19/24 07/20/24 07/21/24 23:59 23:59 23:59 23:59 Intake Total 1100 / 1100 2283 / 2283 Output Total 500 / 500 Balance 1100 / 1100 1783 / 1783 Weight (kg) 113 kg 50.5 kg Objective General Appearance: positive No acute distress, Alert and Other (Very hard of hearing) Eyes Bilateral: positive Normal inspection and PERRL ENT: positive ENT inspection nml Neck: positive Nml inspection Respiratory: positive Chest non-tender and Rhonchi Cardiovascular: positive Regular rate & rhythm Abdomen: positive Non-tender Skin: positive Color nml Extremities: positive Non-tender Neurologic/Psychiatric: positive Other (Oriented to person and place, easily able to be reoriented to year. Demonstrates full understanding of why she is hospitalized) Lab Results 07/21/24 08:52 07/21/24 08:52 Other Labs: Lab Results x24hrs 07/21/24 07/21/24 07/20/24 Range/Units 08:52 05:31 20:00 WBC 2.5 L (4.8-10.8) x10^3/uL RBC 3.83 L (4.20-5.40) 10^6/uL Hgb 10.9 L (12.0-16.0) g/dL Hct 34.5 L (37.0-47.0) % MCV 90.1 (81.0-99.0) fL MCH 28.5 (27.0-31.0) pg MCHC 31.6 L (32.0-36.0) g/dL RDW 13.1 (12.0-15.0) % Plt Count 97 L (130-450) 10^3/uL MPV 9.3 (7.9-10.8) fL Sodium 137 (135-145) mmol/L Potassium 3.8 (3.5-4.5) mmol/L Chloride 109 (101-111) mmol/L Carbon Dioxide 18 L (21-32) mmol/L Anion Gap 10.0 (6-13) BUN 61 H (6-20) mg/dL Creatinine 3.0 H (0.6-1.3) mg/dL Estimated GFR (MDRD) 15 L (>89) Glucose 95 (74-104) mg/dL Lactic Acid (0.5-2.2) mmol/L Calcium 7.7 L (8.5-10.3) mg/dL Procalcitonin Immunoas 0.19 (<0.5) ng/mL Urine Color YELLOW Urine Clarity HAZY (CLEAR) Urine pH 5.5 (5.0-7.5) PH Ur Specific [place] 1.020 (1.002-1.030) Urine Protein 30 H (NEGATIVE) mg/dL Urine Glucose (UA) NEGATIVE (NEGATIVE) mg/dL Urine Ketones NEGATIVE (NEGATIVE) mg/dL Urine Occult Blood TRACE-INTA (NEGATIVE) Urine Nitrite NEGATIVE (NEGATIVE) Urine Bilirubin NEGATIVE (NEGATIVE) Urine Urobilinogen 0.2 (NORMAL) (NORMAL) E.U./dL Ur Leukocyte Esterase SMALL H (NEGATIVE) Urine RBC 0-5 (0-5) /HPF Urine WBC 4-5 (0-5) /HPF Ur Squamous Epith Cells FEW Squamous (<= Few) Urine Bacteria Few (None Seen) /HPF Ur Microscopic Review INDICATED Urine Culture Comments INDICATED Nasal Adenovirus (PCR) NOT DETECTED Nasal B. parapertussis DNA (PCR) NOT DETECTED Nasal Coronavir 229E PCR NOT DETECTED Nasal Coronavir HKU1 PCR NOT DETECTED Nasal Coronavir NL63 PCR NOT DETECTED Nasal Coronavir OC43 PCR NOT DETECTED Nasal Enterovir/Rhinovir PCR NOT DETECTED Nasal Influ A H1 2009 PCR DETECTED A Nasal Influenza B PCR NOT DETECTED Nasal Influenza A PCR NOT DETECTED Nasal Parainfluen 1 PCR NOT DETECTED Nasal Parainfluen 2 PCR NOT DETECTED Nasal Parainfluen 3 PCR NOT DETECTED Nasal Parainfluen 4 PCR NOT DETECTED Nasal RSV (PCR) NOT DETECTED Nasal B.pertussis DNA PCR NOT DETECTED Nasal C.pneumoniae (PCR) NOT DETECTED Fabiano Human Metapneumo PCR NOT DETECTED Nasal M.pneumoniae (PCR) NOT DETECTED Nasal SARS-CoV-2 (PCR) NOT DETECTED 07/20/24 Range/Units 08:52 WBC (4.8-10.8) x10^3/uL RBC (4.20-5.40) 10^6/uL Hgb (12.0-16.0) g/dL Hct (37.0-47.0) % MCV (81.0-99.0) fL MCH (27.0-31.0) pg MCHC (32.0-36.0) g/dL RDW (12.0-15.0) % Plt Count (130-450) 10^3/uL MPV (7.9-10.8) fL Sodium (135-145) mmol/L Potassium (3.5-4.5) mmol/L Chloride (101-111) mmol/L Carbon Dioxide (21-32) mmol/L Anion Gap (6-13) BUN (6-20) mg/dL Creatinine (0.6-1.3) mg/dL Estimated GFR (MDRD) (>89) Glucose (74-104) mg/dL Lactic Acid 0.4 L (0.5-2.2) mmol/L Calcium (8.5-10.3) mg/dL Procalcitonin Immunoas (<0.5) ng/mL Urine Color Urine Clarity (CLEAR) Urine pH (5.0-7.5) PH Ur Specific [place] (1.002-1.030) Urine Protein (NEGATIVE) mg/dL Urine Glucose (UA) (NEGATIVE) mg/dL Urine Ketones (NEGATIVE) mg/dL Urine Occult Blood (NEGATIVE) Urine Nitrite (NEGATIVE) Urine Bilirubin (NEGATIVE) Urine Urobilinogen (NORMAL) E.U./dL Ur Leukocyte Esterase (NEGATIVE) Urine RBC (0-5) /HPF Urine WBC (0-5) /HPF Ur Squamous Epith Cells (<= Few) Urine Bacteria (None Seen) /HPF Ur Microscopic Review Urine Culture Comments Nasal Adenovirus (PCR) Nasal B. parapertussis DNA (PCR) Nasal Coronavir 229E PCR Nasal Coronavir HKU1 PCR Nasal Coronavir NL63 PCR Nasal Coronavir OC43 PCR Nasal Enterovir/Rhinovir PCR Nasal Influ A H1 2009 PCR Nasal Influenza B PCR Nasal Influenza A PCR Nasal Parainfluen 1 PCR Nasal Parainfluen 2 PCR Nasal Parainfluen 3 PCR Nasal Parainfluen 4 PCR Nasal RSV (PCR) Nasal B.pertussis DNA PCR Nasal C.pneumoniae (PCR) Fabiano Human Metapneumo PCR Nasal M.pneumoniae (PCR) Nasal SARS-CoV-2 (PCR) Assessment/Plan Problem List (1) AMPARO (acute kidney injury): Impression: Prerenal AMPARO due to influenza causing reduced p.o. intake and diarrhea She reports her diarrhea has resolved She has received aggressive IV fluid resuscitation Her creatinine has gone from 4.6 on admit down to 3 I have ordered an additional liter bolus and have ordered her LR to continue for another 2 bags (2) Bilateral pneumonia: Impression: Procalcitonin negative I have discontinued her Levaquin I will start her on azithromycin for its anti-inflammatory properties Continue course of Tamiflu, renally dosed to prevent toxicity
[2024-07-21] MEDS: ACETAMINOPHEN 325 MG TABLET PO PRN (21:38)
[2024-07-22] MEDS ORDERED: levoFLOXacin 500 MG/100 ML 500 MG/100 ML BAG IV SCH (09:00)
[2024-07-22] MEDS: polyethylene glycoL 3350 17 GM PACKET PO SCH (09:08)
[2024-07-22] MEDS: AZITHROMYCIN 250 MG TABLET PO SCH (09:09)
--- NOTE | 2024-07-22 12:26 | PROVIDER PROGRESS NOTE ---
Subjective Prog Note Date Prog Note Date: 07/22/24 Subjective Subjective: She wants to go home. She does understand that her lungs will not allow that, and she is starting to understand that her kidneys are having problems as well. She is extremely hard of hearing and depends on reading lips, which is hard with masking requirements due to her Flu A infection. Current Medications Current Medications Current Medications: Current Medications Generic Name Dose Route Start Last Admin Trade Name Freq PRN Reason Stop Dose Admin Acetaminophen 650 mg 07/20/24 22:16 07/21/24 21:38 Acetaminophen 325 Mg Tablet PO 650 mg Q4HR PRN Administration Pain 1 to 4, or Fever Azithromycin 500 mg 07/22/24 09:00 07/22/24 09:09 Azithromycin 250 Mg Tablet PO 07/23/24 09:01 500 mg DAILY PEMA Administration Guaifenesin 1,200 mg 07/21/24 13:00 07/22/24 09:09 Guaifenesin 600 Mg Tablet PO 1,200 mg BID PEMA Administration Heparin Sodium (Porcine) 5,000 unit 07/21/24 09:00 07/22/24 09:09 Heparin 5,000 Unit/Ml Vial SUBQ Not Given BID PEMA Mirtazapine 15 mg 07/20/24 23:00 07/21/24 21:13 Mirtazapine 15 Mg Tablet PO 15 mg HS PEMA Administration Multivitamins/Minerals 1 tab 07/21/24 17:00 07/22/24 09:09 Multivitamin W/Minerals Tablet PO 1 tab DAILYWM PEMA Administration Ondansetron HCl 4 mg 07/20/24 22:16 Ondansetron 4 Mg/2 Ml Vial IVP Q6HR PRN Nausea / Vomiting Oseltamivir Phosphate 30 mg 07/21/24 09:00 07/22/24 09:09 Oseltamivir 30 Mg Capsule PO 30 mg DAILY PEMA Administration Polyethylene Glycol 17 gm 07/22/24 08:00 07/22/24 09:41 Polyethylene Glycol 3350 17 Gm Packet PO 17 gm DAILY PEMA Administration Sodium Chloride 10 ml 07/20/24 22:16 Sodium Chloride Flush 0.9% 10 Ml Syringe IVP PRN PRN NEEDED PER PROVIDER ORDERS Sodium Chloride 10 ml 07/21/24 01:00 07/22/24 09:09 Sodium Chloride Flush 0.9% 10 Ml Syringe IVP 10 ml 0100,0900,1700 PEMA Administration Tamsulosin HCl 0.4 mg 07/21/24 09:00 07/22/24 09:09 Tamsulosin 0.4 Mg Capsule PO 0.4 mg DAILY PEMA Administration Objective Vital Signs/Intake & Output Reviewed Vital Signs: Yes Vital Signs: Vital Signs x48h Temp Pulse Resp BP Pulse Ox 07/22/24 07:58 36.4 C L 68 16 156/78 H 90 L Intake & Output: Intake & Output 07/19/24 07/20/24 07/21/24 07/22/24 23:59 23:59 23:59 23:59 Intake Total 1100 / 1100 3843 / 3843 1090 / 1090 Output Total 500 / 500 2200 / 2200 Balance 1100 / 1100 3343 / 3343 -1110 / -1110 Weight (kg) 113 kg 50.5 kg Objective General Appearance: positive No acute distress, Alert and Other (Very hard of hearing) Eyes Bilateral: positive Normal inspection and PERRL ENT: positive ENT inspection nml Neck: positive Nml inspection Respiratory: positive Chest non-tender and Rhonchi Cardiovascular: positive Regular rate & rhythm Abdomen: positive Non-tender Skin: positive Color nml Extremities: positive Non-tender Neurologic/Psychiatric: positive Other (Oriented to person and place, easily able to be reoriented to year. Demonstrates full understanding of why she is hospitalized) Lab Results 07/21/24 08:52 07/21/24 08:52 Other Labs: Lab Results x24hrs 07/21/24 07/21/24 07/20/24 Range/Units 08:52 05:31 20:00 WBC 2.5 L (4.8-10.8) x10^3/uL RBC 3.83 L (4.20-5.40) 10^6/uL Hgb 10.9 L (12.0-16.0) g/dL Hct 34.5 L (37.0-47.0) % MCV 90.1 (81.0-99.0) fL MCH 28.5 (27.0-31.0) pg MCHC 31.6 L (32.0-36.0) g/dL RDW 13.1 (12.0-15.0) % Plt Count 97 L (130-450) 10^3/uL MPV 9.3 (7.9-10.8) fL Sodium 137 (135-145) mmol/L Potassium 3.8 (3.5-4.5) mmol/L Chloride 109 (101-111) mmol/L Carbon Dioxide 18 L (21-32) mmol/L Anion Gap 10.0 (6-13) BUN 61 H (6-20) mg/dL Creatinine 3.0 H (0.6-1.3) mg/dL Estimated GFR (MDRD) 15 L (>89) Glucose 95 (74-104) mg/dL Lactic Acid (0.5-2.2) mmol/L Calcium 7.7 L (8.5-10.3) mg/dL Procalcitonin Immunoas 0.19 (<0.5) ng/mL Urine Color YELLOW Urine Clarity HAZY (CLEAR) Urine pH 5.5 (5.0-7.5) PH Ur Specific Avery 1.020 (1.002-1.030) Urine Protein 30 H (NEGATIVE) mg/dL Urine Glucose (UA) NEGATIVE (NEGATIVE) mg/dL Urine Ketones NEGATIVE (NEGATIVE) mg/dL Urine Occult Blood TRACE-INTA (NEGATIVE) Urine Nitrite NEGATIVE (NEGATIVE) Urine Bilirubin NEGATIVE (NEGATIVE) Urine Urobilinogen 0.2 (NORMAL) (NORMAL) E.U./dL Ur Leukocyte Esterase SMALL H (NEGATIVE) Urine RBC 0-5 (0-5) /HPF Urine WBC 4-5 (0-5) /HPF Ur Squamous Epith Cells FEW Squamous (<= Few) Urine Bacteria Few (None Seen) /HPF Ur Microscopic Review INDICATED Urine Culture Comments INDICATED Nasal Adenovirus (PCR) NOT DETECTED Nasal B. parapertussis DNA (PCR) NOT DETECTED Nasal Coronavir 229E PCR NOT DETECTED Nasal Coronavir HKU1 PCR NOT DETECTED Nasal Coronavir NL63 PCR NOT DETECTED Nasal Coronavir OC43 PCR NOT DETECTED Nasal Enterovir/Rhinovir PCR NOT DETECTED Nasal Influ A H1 2009 PCR DETECTED A Nasal Influenza B PCR NOT DETECTED Nasal Influenza A PCR NOT DETECTED Nasal Parainfluen 1 PCR NOT DETECTED Nasal Parainfluen 2 PCR NOT DETECTED Nasal Parainfluen 3 PCR NOT DETECTED Nasal Parainfluen 4 PCR NOT DETECTED Nasal RSV (PCR) NOT DETECTED Nasal B.pertussis DNA PCR NOT DETECTED Nasal C.pneumoniae (PCR) NOT DETECTED Fabiano Human Metapneumo PCR NOT DETECTED Nasal M.pneumoniae (PCR) NOT DETECTED Nasal SARS-CoV-2 (PCR) NOT DETECTED 07/20/24 Range/Units 08:52 WBC (4.8-10.8) x10^3/uL RBC (4.20-5.40) 10^6/uL Hgb (12.0-16.0) g/dL Hct (37.0-47.0) % MCV (81.0-99.0) fL MCH (27.0-31.0) pg MCHC (32.0-36.0) g/dL RDW (12.0-15.0) % Plt Count (130-450) 10^3/uL MPV (7.9-10.8) fL Sodium (135-145) mmol/L Potassium (3.5-4.5) mmol/L Chloride (101-111) mmol/L Carbon Dioxide (21-32) mmol/L Anion Gap (6-13) BUN (6-20) mg/dL Creatinine (0.6-1.3) mg/dL Estimated GFR (MDRD) (>89) Glucose (74-104) mg/dL Lactic Acid 0.4 L (0.5-2.2) mmol/L Calcium (8.5-10.3) mg/dL Procalcitonin Immunoas (<0.5) ng/mL Urine Color Urine Clarity (CLEAR) Urine pH (5.0-7.5) PH Ur Specific Avery (1.002-1.030) Urine Protein (NEGATIVE) mg/dL Urine Glucose (UA) (NEGATIVE) mg/dL Urine Ketones (NEGATIVE) mg/dL Urine Occult Blood (NEGATIVE) Urine Nitrite (NEGATIVE) Urine Bilirubin (NEGATIVE) Urine Urobilinogen (NORMAL) E.U./dL Ur Leukocyte Esterase (NEGATIVE) Urine RBC (0-5) /HPF Urine WBC (0-5) /HPF Ur Squamous Epith Cells (<= Few) Urine Bacteria (None Seen) /HPF Ur Microscopic Review Urine Culture Comments Nasal Adenovirus (PCR) Nasal B. parapertussis DNA (PCR) Nasal Coronavir 229E PCR Nasal Coronavir HKU1 PCR Nasal Coronavir NL63 PCR Nasal Coronavir OC43 PCR Nasal Enterovir/Rhinovir PCR Nasal Influ A H1 2009 PCR Nasal Influenza B PCR Nasal Influenza A PCR Nasal Parainfluen 1 PCR Nasal Parainfluen 2 PCR Nasal Parainfluen 3 PCR Nasal Parainfluen 4 PCR Nasal RSV (PCR) Nasal B.pertussis DNA PCR Nasal C.pneumoniae (PCR) Fabiano Human Metapneumo PCR Nasal M.pneumoniae (PCR) Nasal SARS-CoV-2 (PCR) Assessment/Plan Problem List (1) AMPARO (acute kidney injury): Impression: Prerenal AMPARO due to influenza causing reduced p.o. intake and diarrhea She reports her diarrhea has resolved She has received aggressive IV fluid resuscitation, And IV fluids have been discontinued. Her creatinine has gone from 4.6 on admit down to 3, However I do not have labs today secondary to the patient refusing them. I decided to forego laboratory measurements today due to the fact that the patient has no potential for discharge home secondary to her hypoxia. (2) Bilateral pneumonia: Impression: This is influenza pneumonia. She is on azithromycin for anti-inflammatory processes. She is day 2 of 3 on this.She is on Mucinex to help her cough up secretions. IV fluids have been discontinued. She is taking oral fluids.She continues to be hypoxic on room air. I measured saturations down to 85 on room air while I was in the room. Nasal cannula was replaced at about 3 L of oxygen. Continue course of Tamiflu, renally dosed to prevent toxicity I have spent 38 minutes in the care of this patient today. This includes time [id number], review and ordering of diagnostic imaging and laboratory studies. Monitoring the patient's signs symptoms, evaluation of medication effectiveness and patient's response to treatment.
[2024-07-22] MEDS: IPRATROPIUM/ALBUTEROL 3 ML NEB INH SCH (15:43)
[2024-07-23 04:59] LABS: CALCIUM 8.4 mg/dL (8.5-10.3); CREATININE 1.5 mg/dL (0.6-1.3); POTASSIUM 4.8 mmol/L (3.5-4.5)
[2024-07-23 06:34] LABS: BASOPHILS % (AUTO) 0.4 %; EOSINOPHILS # (AUTO) 0.1 10^3/uL (0.0-0.7); EOSINOPHILS % (AUTO) 4.5 %; HCT - HEMATOCRIT 38.5 % (37.0-47.0); HGB - HEMOGLOBIN 11.7 g/dL (12.0-16.0); LYMPHOCYTES # (AUTO) 1.5 10^3/uL (1.5-3.5); LYMPHOCYTES % (AUTO) 63.1 %; MEAN CORPUSCULAR HEMOGLOBIN 28.1 pg (27.0-31.0); MEAN CORPUSCULAR HGB CONC 30.4 g/dL (32.0-36.0); MEAN CORPUSCULAR VOLUME 92.5 fL (81.0-99.0); MEAN PLATELET VOLUME 9.9 fL (7.9-10.8); MONOCYTES # (AUTO) 0.3 10^3/uL (0.0-1.0); MONOCYTES % (AUTO) 10.7 %; NEUTROPHILS % (AUTO) 20.9 %; PLT - PLATELET COUNT 97 10^3/uL (130-450); RED BLOOD COUNT 4.16 10^6/uL (4.20-5.40); RED CELL DISTRIBUTION WIDTH 13.1 % (12.0-15.0); WHITE BLOOD COUNT 2.4 x10^3/uL (4.8-10.8)
[2024-07-23 06:52] LABS: NEUTROPHILS # (AUTO) 0.5 10^3/uL (1.5-6.6); SLIDE REVIEW? Indicated
[2024-07-23 07:03] LABS: RBC MORPHOLOGY (MULTIPLE) 1+ ANISOCYTOSIS (NORMAL)
[2024-07-23 15:13] VITALS: BP 124/70; TEMP 98.6; O2SAT 91
--- NOTE | 2024-07-23 15:56 | Discharge Summary ---
"Discharge Summary Admit Date: 07/20/24 Discharge Date: 07/23/24 Discharging Provider: Mee Sinha PA-C Primary Care Provider: Trini Lee NP Code Status: Do Not Attempt Resuscitation DIAGNOSES Discharge Diagnoses with Status of Each Condition: acute kidney injury, resolved Bilateral pneumonia, secondary to influenza A, patient discharged on room air. 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 Patient lives with her cousin who encouraged her to come in to ER for evaluation. Patient has reportedly had increased cough, fatigue, diarrhea and poor appetite. Per RN patient has not had any N/V/D since being in the ER. Afebrile, patient denies fevers/chills. CXR shows bibasilar pneumonia, Influenza A positive. AMPARO with Cr 4.6. Unable to obtain further history as patient is very hard of hearing, RN at bedside to assist. Patient did de-sat ot 86% after receiving IV fluid bolus, now on 2 L NC, no evidence of respiratory distress at rest. In the ER patient has refused bladder scan, nebulizer treatment and further labs (lactic acid, UA). CONSULTS | PROCEDURES Procedures: Chest x-ray: Low lung volumes with chronic left base opacity and developing right base opacity probably atelectasis due to hypoinflation but cannot rule out underlying infection. Stable cardiomediastinal contour. HOSPITAL COURSE Hospital Course: 79-year-old female who was admitted to internal medicine service with complaints of cough and congestion with room air oxygen saturations at 86%. She required 2 L of fluid via nasal cannula. She was somewhat difficult to care for her as she refused multiple treatments. On admission her creatinine was 4.6. Which was a marked change from previous value less than 6 months prior of 0.9. Respiratory panel was positive for influenza A. She was given supportive care with IV fluid hydration and oxygen. She was not treated for bacterial pneumonia, but she was given 3 days of azithromycin for its anti-inflammatory properties. She was given renally dosed Tamiflu while inpatient. Her acute kidney injury self resolved with supportive care. She was discharged home in stable condition in the care of family with strict instructions to follow-up with her PCP in 7 to 10 days. ALLERGIES Allergies Allergy/AdvReac Type Severity Reaction Status Date / Time Penicillins Allergy Anaphylaxis Verified 07/20/24 16:15 MEDICATIONS Ambulatory Orders Medication Instructions Recorded Confirmed albuterol sulfate 90 mcg/actuation 1 inh inhalation Q4H PRN shortness 07/21/24 07/21/24 aerosol inhaler (Ventolin HFA) of breath or wheezing guaifenesin 600 mg tablet, 1,200 mg (2 x 600 mg) PO BID 30 07/21/24 extended release 12 hr (Mucinex) days #120 tabs mirtazapine 15 mg tablet See Rx Instructions .Route 07/21/24 07/21/24 .COMPLEX #90 tabs tamsulosin 0.4 mg capsule 0.4 mg PO DAILY 07/21/24 07/21/24 amlodipine 10 mg tablet (Norvasc) 10 mg PO QDAY #90 tabs 07/27/24 losartan 25 mg tablet 25 mg PO DAILY #90 tabs 07/27/24 PHYSICAL EXAM AT DISCHARGE Physical Exam Other/Comments: General Appearance: positive No acute distress, Alert and Other (Very hard of hearing) Eyes Bilateral: positive Normal inspection and PERRL ENT: positive ENT inspection nml Neck: positive Nml inspection Respiratory: positive Chest non-tender and Rhonchi Cardiovascular: positive Regular rate & rhythm Abdomen: positive Non-tender Skin: positive Color nml Extremities: positive Non-tender Neurologic/Psychiatric: Alert and oriented x 3, extremely hard of hearing. LABS 07/23/24 06:08 07/23/24 04:14 FOLLOW UP Follow Up: PCP 7 to 10 days. TIME SPENT Time Spent in Discharge (Minutes): 38 Discharge Plan Discharge Patient Disposition: Home, Self Care Condition: Stable Prescriptions: New guaifenesin [Mucinex] 600 mg Tablet Extended Release 12hr 1,200 mg PO BID 30 Days Qty: 120 0RF Continued mirtazapine 15 mg tablet See Rx Instructions .ROUTE .COMPLEX Qty: 90 2RF Dose Instruction: take 1 tablet by mouth at bedtime Rx Instructions: take 1 tablet by mouth at bedtime tamsulosin 0.4 mg capsule 0.4 mg PO DAILY albuterol sulfate [Ventolin HFA] 90 mcg/actuation HFA aerosol inhaler 1 inh inhalation Q4H PRN (Reason: shortness of breath or wheezing) No Action amlodipine [Norvasc] 10 mg tablet 10 mg PO QDAY Qty: 90 3RF losartan 25 mg tablet 25 mg PO DAILY Qty: 90 3RF Activity Restrictions: Activity as Tolerated Diet: Regular Health Concerns: You came into the hospital with dehydration secondary to influenza. You also required 2 L of oxygen because of the severity of your influenza. You were admitted into the hospital so that you could be worked up for your hypoxia as well as your acute kidney injury. Your kidney function has improved greatly with IV fluid resuscitation. A procalcitonin level was checked, which shows that you do not have a superimposed bacterial pneumonia. I am sending you home with a course of mucinex. you have finished enough medications for your influenza, that you do not need to take more medicines. Please remain as active as possible. I have ordered a home health referral, so people will be coming out to your house to help you with your activities of daily living and to help returning to a normal state of activity. Please return to the hospital if you have fevers that are not managed with Tylenol or if you begin to experience shortness of breath or altered mental status Print Language: Faroese Patient Instructions: Flu Follow-up Care: Batool Lee FNP [Provider Admit Priv/Credential] -"
== END 2024-07-23 18:45 | disposition home or self-care (01) | DRG 194 ==
LOC: ED 15:57 → MS3 22:16
PROVIDERS: ADMIT Student in an Organized Health Care Education/Training Program; ATTEND Student in an Organized Health Care Education/Training Program
DX: I10 Essential (primary) hypertension; Z87.891 Personal history of nicotine dependence; R19.7 Diarrhea, unspecified; Z86.73 Personal history of transient ischemic attack (TIA), and cerebral infarction without residual deficits; N17.9 Acute kidney failure, unspecified; R09.02 Hypoxemia; J10.01 Influenza due to other identified influenza virus with the same other identified influenza virus pneumonia; Z20.822 Contact with and (suspected) exposure to COVID-19; Z68.21 Body mass index [BMI] 21.0-21.9, adult; Z20.818 Contact with and (suspected) exposure to other bacterial communicable diseases; Z20.828 Contact with and (suspected) exposure to other viral communicable diseases; H91.90 Unspecified hearing loss, unspecified ear; R63.0 Anorexia; J10.00 Influenza due to other identified influenza virus with unspecified type of pneumonia; Z79.899 Other long term (current) drug therapy; D72.819 Decreased white blood cell count, unspecified

== ENCOUNTER 2024-10-05 13:56 | Inpatient (IN) ==
--- NOTE | 2024-10-05 15:01 | XRAY Report ---
PROCEDURE: XR Foot 3+V LT INDICATIONS: foot swelling and pain TECHNIQUE: 3 views of the foot were acquired. COMPARISON: None. FINDINGS: Bones: No fractures or dislocations. No suspicious bony lesions. Soft tissues: No tibiotalar joint effusion. Achilles tendon appears normal. IMPRESSION: No acute bony abnormality. Reviewed by: Dave Ford MD on 10/05/2024 3:00 PM PDT Approved by: Dave Ford MD on 10/05/2024 3:00 PM PDT Station ID: [id number]
--- NOTE | 2024-10-05 15:02 | XRAY Report ---
PROCEDURE: XR Chest 1V INDICATIONS: Sepsis TECHNIQUE: One view of the chest was acquired. COMPARISON: 07/20/2024. FINDINGS: Surgical changes and devices: Right axillary clips. Lungs and pleura: No pleural effusions or pneumothorax. No consolidation. Mediastinum: Mediastinal contours appear normal. Heart size is normal. Bones and chest wall: No suspicious bony lesions. Overlying soft tissues appear unremarkable. IMPRESSION: No acute cardiopulmonary process. Reviewed by: Dave Ford MD on 10/05/2024 3:01 PM PDT Approved by: Dave Ford MD on 10/05/2024 3:01 PM PDT Station ID: [id number]
[2024-10-05 15:07] LABS: BASOPHILS % (AUTO) 0.3 %; EOSINOPHILS % (AUTO) 1.3 %; HCT - HEMATOCRIT 38.6 % (37.0-47.0); HGB - HEMOGLOBIN 11.8 g/dL (12.0-16.0); LYMPHOCYTES % (AUTO) 4.1 %; MEAN CORPUSCULAR HEMOGLOBIN 28.9 pg (27.0-31.0); MEAN CORPUSCULAR HGB CONC 30.6 g/dL (32.0-36.0); MEAN CORPUSCULAR VOLUME 94.4 fL (81.0-99.0); MEAN PLATELET VOLUME 9.3 fL (7.9-10.8); MONOCYTES % (AUTO) 1.9 %; NEUTROPHILS % (AUTO) 88.6 %; PLT - PLATELET COUNT 161 10^3/uL (130-450); RED BLOOD COUNT 4.09 10^6/uL (4.20-5.40); RED CELL DISTRIBUTION WIDTH 14.4 % (12.0-15.0); WHITE BLOOD COUNT 14.6 x10^3/uL (4.8-10.8)
[2024-10-05 15:17] LABS: INR 1.1 (0.8-1.2); PT - PROTHROMBIN TIME 12.8 secs (9.9-12.6)
[2024-10-05 15:18] LABS: ABNORMAL LYMPHS % (MANUAL) 0 %
--- NOTE | 2024-10-05 15:22 | ED Physician Documentation ---
History of Present Illness Stated complaint Stated Complaint: L GREAT TOE PX Chief complaint Chief Complaint: Wound History obtained from History obtained from: Patient History of Present Illness Timing: Prior to arrival Additonal information Additional information: Patient is a 79-year-old female presenting with past medical history of hypertension presents with wound and swelling to left leg with redness extending down her left leg. Patient on arrival was answering questions to nursing staff but on my exam not answering questions she is alert ANO x 0 at this time. She is not reporting any pain at this time. She does appear tachypneic on arrival. No previous history of DVTs. She is not on any blood thinners according to previous labs and imaging. Meds/Allgy Home Medications Ambulatory Orders Medication Instructions Recorded Confirmed albuterol sulfate 90 mcg/actuation 1 inh inhalation Q4 H PRN shortness 07/21/24 07/29/24 aerosol inhaler (Ventolin HFA) of breath or wheezing guaifenesin 600 mg tablet, 1,200 mg (2 x 600 mg) PO BI D 30 07/21/24 07/29/24 extended release 12 hr (Mucinex) days #120 tabs mirtazapine 15 mg tablet See Rx Instructions .Route 0 07/21/24 07/29/24 .COMPLEX #90 tabs amlodipine 10 mg tablet (Norvasc) 10 mg PO QDAY #90 ta bs 07/27/24 07/29/24 losartan 25 mg tablet 25 mg PO DAILY #90 tabs 04/0 07/28 tamsulosin 0.4 mg capsule 0.4 mg PO DAILY #90 caps Allergies Allergies Allergy/AdvReac Type Severity Reaction Status Date / Time Penicillins Allergy Anaphylaxis Verified 10/05/24 14:09 [facility] Active Problems All Active Problems (Updated 10/05/24 @ 16:42 by Sophia Colon PA-C) Elevated lactic acid level (Acute) Severe sepsis (Acute) Infection of toe (Acute) Cellulitis of left leg (Acute) Bilateral pneumonia (Acute) AMPARO (acute kidney injury) (Acute) Social History Social History (Updated 10/05/24 @ 14:12 by Francisco J Nguyễn, RN, BSN) Smoking Status: Unknown if ever smoked Number of Years Smoked: 58 How many cigarettes a day do you smoke? (20 cigarettes=1 Pk): 10 Do you dip or chew tobacco?: No Do you vape?: No Patient requests smoking cessation consult: No Initiate information on smoking cessation: No Relationship: Physical Activity: Walking Do you feel safe in your home environment?: Yes Suffered physical, verbal, emotional, or financial abuse?: No History of Abuse: No Substance Use: declined to answer POLST Patient has POLST: No POLST Status: Full Code Exam Exam Vital Signs: Vital Signs x48h Temp Pulse Resp BP Pulse Ox 10/05/24 15:33 102 H 30 H 177/72 H 92 10/05/24 14:05 37.1 C 109 H 40 H 182/86 H 96 Constitutional Alert A & O x 0 HENMT normocephalic Patient does not appear well kept on examination Eyes PERRL, EOMs intact bilaterally and conjunctivae normal Extremities Significant swelling with pitting edema appreciated to the left leg significant warmth to touch necrotic left great toe on examination. Pain on examination patient not following commands to move left leg, but sensation does appear i ntact. Capilary refill intact < 3 seconds Skin skin color normal and no rash Results Vitals Vitals: Vital Signs - 24 hr 10/05/24 14:05 10/05/24 15:33 Temperature 37.1 C Temperature Source Temporal Artery Scan Pulse Rate 109 H 102 H Respiratory Rate 40 H 30 H Blood Pressure 182/86 H 177/72 H O2 Saturation 96 92 O2 Source Room air Room air Pain Intensity 5 Oxygen O2 Source Room air Labs Labs: Laboratory Tests 10/05/24 15:00 WBC 14.6 H RBC 4.09 L Hgb 11.8 L Hct 38.6 MCV 94.4 MCH 28.9 MCHC 30.6 L RDW 14.4 Plt Count 161 MPV 9.3 Neut # (Auto) Not Reportable Lymph # (Auto) Not Reportable [place] # (Auto) Not Reportable Eos # (Auto) Not Reportable Baso # (Auto) Not Reportable Absolute Nucleated RBC Not Reportable Total Counted 100 Band Neuts % (Manual) 7 Abnorm Lymph % (Manual) 0 Nucleated RBC % Not Reportable Neutrophils # (Manual) 14.2 H Lymphocytes # (Manual) 0.3 L Monocytes # (Manual) 0.1 Eosinophils # (Manual) 0.0 Basophils # (Manual) 0.0 Differential Comment MANUAL DIFFERENTIAL Platelet Estimate NORMAL (130-450,000) Platelet Morphology NORMAL APPEARANCE RBC Morph Micro Appear NORMAL APPEARANCE PT 12.8 H INR 1.1 Sodium 132 L Potassium 3.8 Chloride 99 L Carbon Dioxide 22 Anion Gap 11.0 BUN 30 H Creatinine 1.5 H Estimated GFR (MDRD) 33 L Glucose 120 H Lactic Acid 3.1 H* Calcium 9.7 Magnesium 2.0 Total Bilirubin 0.9 AST 10 ALT 6 L Alkaline Phosphatase 76 Total Protein 7.9 Albumin 4.0 Globulin 3.9 Albumin/Globulin Ratio 1.0 PD Medical Decision Making ED course Complexity details: reviewed old records and reviewed results ED course: Patient is a 79-year-old female presenting to the emergency department for on reevaluation she is ANO x 2 answering some questions reporting significant pain to her left foot. No history of diabetes but appears to be unkkwept and appears to reside with her cousin at home who she says takes care of her. She is on losartan and amlodipine does not appear to be on any previous blood thinners no history of DVTs or PEs. Patient answering questions. On the ED on reevaluation. Initial labs obtained here in the ED show white count of 14 with a lactic acid of 3.1 patient meets severe sepsis criteria at this time. Left foot x-ray: No acute bony abnormality. Chest X-ray: No acute cardiopulmonary process. Concern for sepsis on patient's arrival given left foot wound swelling tachypnea and tachycardia on arrival. Sepsis order set performed with fluids ordered and vancomycin ordered at pateint present for 1 hour and 15 minutes.Delay and given antibiotics fluids and labs being obtained due to difficult access. Dr. Kemp placed central line here in the ED. Will plan for admission for severe sepsis with necrotic foot wound to left leg with redness extending up left leg on exam.Discussed case with Dr. Chacon who is agreeable to admission at this time patient will go to the floor at this time antibiotics and fluids started with central line in place. Discharge Plan Discharge Patient Disposition: [facility] DC/Xfer Condition: Stable Clinical Impression: Cellulitis of left leg, Infection of toe, Severe sepsis, Elevated lactic acid level Prescriptions: No Action mirtazapine 15 mg tablet See Rx Instructions .ROUTE .COMPLEX Qty: 90 2RF Dose Instruction: take 1 tablet by mouth at bedtime Rx Instructions: take 1 tablet by mouth at bedtime amlodipine [Norvasc] 10 mg tablet 10 mg PO QDAY Qty: 90 3RF losartan 25 mg tablet 25 mg PO DAILY Qty: 90 0RF tamsulosin 0.4 mg capsule 0.4 mg PO DAILY Qty: 90 3RF albuterol sulfate [Ventolin HFA] 90 mcg/actuation HFA aerosol inhaler 1 inh inhalation Q4H PRN (Reason: shortness of breath or wheezing) guaifenesin [Mucinex] 600 mg Tablet Extended Release 12hr 1,200 mg PO BID 30 Days Qty: 120 0RF Print Language: [place] African
[2024-10-05 15:23] LABS: BILIRUBIN,TOTAL 0.9 mg/dL (0.2-1.0); CALCIUM 9.7 mg/dL (8.5-10.3); CREATININE 1.5 mg/dL (0.6-1.3); POTASSIUM 3.8 mmol/L (3.5-4.5); TOTAL PROTEIN 7.9 g/dL (6.4-8.9)
--- OUTSIDE RECORDS SUMMARY | 2024-10-05 15:39 | EXTERNAL MEDICAL SUMMARY RPT | Continuity of Care Document ---
Author Organization [facility] Address [address] [place] [id number] Phone Problems date description facility 2024-07-21 05:48 Impacted cerumen, unspecified e ar [facility] 2024-07-21 05:48 Elevated blood-press ure reading, without diagnosis of hypertension [facility] 2024-07-21 05:48 Cough, unspecified [facility] 2024-07-21 05:48 Dyspnea, unspecified [facility] 2024-07-21 05:48 Diarrhea, unspecified [facility] 2024-07-21 05:48 Altered mental status, unspecif ied [facility] 2024-07-21 05:48 Weakness [facility] 2024-07-21 05:48 Encounter for issue of repeat p rescription [facility] 2024-07-21 05:49 Impacted cerumen, unspecified e ar [facility] 2024-07-21 05:49 Elevated blood-press ure reading, without diagnosis of hypertension [facility] 2024-07-21 05:49 Cough, unspecified [facility] 2024-07-21 05:49 Dyspnea, unspecified [facility] 2024-07-21 05:49 Diarrhea, unspecified [facility] 2024-07-21 05:49 Altered mental status, unspecif ied [facility] 2024-07-21 05:49 Weakness [facility] 2024-07-21 05:49 Encounter for issue of repeat p rescription [facility] 2024-07-22 10:36 Pneumonia, unspecified organism [facility] 2024-07-22 10:36 Acute kidney failure, unspecifi ed [facility] 2024-07-23 15:56 Acute kidney failure, unspecifi ed [facility] 2024-07-23 17:34 Acute kidney failure, unspecifi ed [facility] 2024-07-23 19:47 Acute kidney failure, unspecifi ed [facility] 2024-07-29 07:57 Influenza due to oth er identified influenza virus with unspecified type of pneumonia [facility] 2024-07-29 07:57 Acute kidney failure, unspecifi ed [facility] 2024-07-29 07:57 Shortness of breath [facility] 2024-07-29 07:57 Unspecified abdominal pain [facility] 2024-07-29 07:57 Diarrhea, unspecified [facility] 2024-08-11 10:52 Impacted cerumen, unspecified e ar [facility] 2024-08-11 10:52 Influenza due to oth er identified influenza virus with unspecified type of pneumonia [facility] 2024-08-11 10:52 Acute kidney failure, unspecifi ed [facility] 2024-08-11 10:52 Elevated blood-press ure reading, without diagnosis of hypertension [facility] 2024-08-11 10:52 Cough, unspecified [facility] 2024-08-11 10:52 Dyspnea, unspecified [facility] 2024-08-11 10:52 Shortness of breath [facility] 2024-08-11 10:52 Unspecified abdominal pain [facility] 2024-08-11 10:52 [facility], [facility] 10:52 Altered mental status, unspecif ied [facility] 2024-08-11 10:52 Weakness [facility] 2024-08-11 10:52 Encounter for issue of repeat p [facility] Results/Labs test date facility value unit notes Result panel 1 LACTIC ACID, VENOUS 2024-07-20 08:52 [facility] 0.4 mmol/l N As of November 2022 testing method has changed, this may include reference ranges. Result panel 2 NUCLEATED RED BLOOD CELLS AUTO 2024-07-20 17:06 [facility]100[facility]bc (missing) BASOPHILS # (AUTO) 2024-07-20 17:06 [facility] 0.0 10 3/ul (missing) EOSINOPHILS # (AUTO) 2024-07-20 17:06 [facility] 0.0 10 3/ul (missing) NRBC ABSOLUTE COUNT (AUTO) 2024-07-20 17:06 [facility] 0.00 x10 3/ul (missing) BILIRUBIN,TOTAL 2024-07-20 17:06 [facility] 0.3 mg /dl As of November 2022 testing method has changed, this may include reference ranges. MONOCYTES # (AUTO) 2024-07-20 17:06 [facility] 0.4 10 3/ul (missing) ALBUMIN/GLOBULIN RATIO 2024-07-20 17:06 [facility] 1.1 (missing) (missing) LYMPHOCYTES # (AUTO) 2024-07-20 17:06 [facility] 1.4 10 3/ul (missing) GLUCOSE 2024-07-20 17:06 [facility] 101 mg/dl As of November 2022 testing method has changed, this may include reference ranges. RED CELL DISTRIBUTION WIDTH 2024-07-20 17:06 [facility] 13.2 % (missing) HGB - HEMOGLOBIN 2024-07-20 17:06 [facility] 13.4 g /dl (missing) SODIUM 2024-07-20 17:06 [facility] 132 mmol/l As of November 2022 testing method has changed, this may include reference ranges. ANION GAP 2024-07-20 17:06 [facility] 14.0 (missing ) (missing) PLT - PLATELET COUNT 2024-07-20 17:06 [facility] 142 10 3/ul (missing) AST ASPARTATE AMINOTRANSFERASE 2024-07-20 17:06 [facility] 19 iu/l As of November 2022 testing method has changed, this may include reference ranges. NEUTROPHILS # (AUTO) 2024-07-20 17:06 [facility] 2.2 10 3/ul (missing) MAGNESIUM 2024-07-20 17:06 [facility] 2.4 mg/dl As of November 2022 testing method has changed, this may include reference ranges. CARBON DIOXIDE - CO2 2024-07-20 17:06 [facility] 20 mmol/l As of November 2022 testing method has changed, this may include reference ranges. BNP - B-NATRIURETIC PEPTIDE 2024-07-20 17:06 [facility] 23 pg/ml (missing) MEAN CORPUSCULAR HEMOGLOBIN 2024-07-20 17:06 [facility] 27.8 pg (missing) GLOBULIN 2024-07-20 17:06 [facility] 3.6 g/dl (missing) ALBUMIN 2024-07-20 17:06 [facility] 3.9 g/dl As of November 2022 testing method has changed, this may include reference ranges. MEAN CORPUSCULAR HGB CONC 2024-07-20 17:06 [facility] 30.7 g/dl (missing) WHITE BLOOD COUNT 2024-07-20 17:06 [facility] 4.0 x10 3/ul (missing) POTASSIUM 2024-07-20 17:06 [facility] 4.5 mmol/l As of November 2022 testing method has changed, this may include reference ranges. CREATININE 2024-07-20 17:06 [facility] 4.6 mg/dl As of November 2022 testing method has changed, this may include reference ranges. RED BLOOD COUNT 2024-07-20 17:06 [facility] 4.82 10 6/ul (missing) HCT - HEMATOCRIT 2024-07-20 17:06 [facility] 43.7 % (missing) TOTAL PROTEIN 2024-07-20 17:06 [facility] 7.5 g/dl As of November 2022 testing method has changed, this may include reference ranges. BUN - BLOOD UREA NITROGEN 2024-07-20 17:06 [facility] 71 mg/dl As of Nov testing method has changed, this may include reference ranges. ALT ALANINE AMINOTRANSFERASE 2024-07-20 17:06 [facility] 8 iu/l As of November 2022 testing method has changed, this may include reference ranges. CALCIUM 2024-07-20 17:06 [facility] 8.5 mg/dl As of November 2022 testing method has changed, this may include reference ranges. ALKALINE PHOSPHATASE 2024-07-20 17:06 [facility] 83 iu/l As of November 2022 testing method has changed, this may include reference ranges. LIPASE 2024-07-20 17:06 [facility] 89 u/l As of November 2022 testing method has changed, this may include reference ranges. GFR - MDRD 2024-07-20 17:06 [facility] 9 (augusto gusman) Social History date description facility
--- NOTE | 2024-10-05 15:40 | PHARMACY PROGRESS NOTE ---
Vancomycin Therapy Monitoring Patient Information Vancomycin Pt Height (inches): 57 Vancomycin Patient Weight (kg): 49 Vanco Rx Serum Creatinine (mg/dL): 1.5 Vancomycin Therapy BUN (mg/dL): 30 Vancomycin Therapy Calculated Creatinine Cl (ml/min): 28 Vancomycin Therapy Goals Treatment Indication: CELLULITIS Vancomycin Target Range: Vancomycin AUC Target Range 400-600 mcg*h/ml Assessment of Current Therapy Vancomycin Loading Dose (GM, if applicable): 1.25G Current Vancomycin Maintenance Regimen (if applicable): 500 Q24H Vancomycin Current Regimen: Subtherapeutic Levels Estimated Cmax (Peak, mcg/ml): 22.4 Estimated Cmin (Trough, mcg/ml): 12.4 Estimated AUC (mcg*hr/ml): 406 Areas for additonal monitoring Areas for additional monitoring: Therapy de-escalation based on culture results and Acute Kidney Injury
[2024-10-05 15:53] LABS: BAND NEUTROPHILS % (MANUAL) 7 %; LYMPHOCYTES # (MANUAL) 0.3 10^3/uL (1.5-3.5); LYMPHOCYTES % (MANUAL) 2 %; MONOCYTES # (MANUAL) 0.1 10^3/uL (0.0-1.0); NEUTROPHILS # (MANUAL) 14.2 10^3/uL (1.5-6.6)
[2024-10-05 15:54] LABS: DIFFERENTIAL COMMENT MANUAL DIFFERENTIAL; PLATELET ESTIMATE, MANUAL NORMAL (130-450,000) (NORMAL); PLATELET MORPHOLOGY NORMAL APPEARANCE (NORMAL); RBC MORPHOLOGY (MULTIPLE) NORMAL APPEARANCE (NORMAL)
--- NOTE | 2024-10-05 16:04 | ED Physician Documentation ---
ED Addendum Addendum Addendum: I was asked by the PA to put IV access in this woman. As I was preparing to do so I noted she was encephalopathic and starting to appear critically ill with tachypnea and probably sepsis. As such I queried the PA for central line would be more appropriate and she was agreeable. I did obtain verbal consent from the patient but noted that she was becoming encephalopathic. Procedure note, central line: Verbal informed consent was obtained, risks including bleeding, infection, pneumothorax, arterial puncture, and need for surgery were discussed with the patient. The patient was prepped twice with ChloraPrep. I wore cap, mask, gown, sterile gloves. Full sterile sheet was utilized. Using real-time ultrasound guidance the right internal jugular vein was accessed and using Seldinger technique a triple-lumen 7 Azeri central line was placed in standard fashion and sutured into place without immediate complications. On the chest x-ray after line placement, it was a bit deep and I asked the nurse to pull it back by 2 cm. Subsequently I was notified by the nurse that the patient had pulled out her central line. She is with that enough that I do not think it is appropriate to replace it and restrain her. As such I did place with real-time ultrasound guidance along 22-gauge IV in the right cephalic vein after ChloraPrep that flushed and kristian well. Discharge Plan Discharge Patient Disposition: [facility] DC/Xfer Condition: Stable Clinical Impression: Cellulitis of left leg, Infection of toe, Severe sepsis, Elevated lactic acid level Prescriptions: No Action mirtazapine 15 mg tablet See Rx Instructions .ROUTE .COMPLEX Qty: 90 2RF Dose Instruction: take 1 tablet by mouth at bedtime Rx Instructions: take 1 tablet by mouth at bedtime amlodipine [Norvasc] 10 mg tablet 10 mg PO QDAY Qty: 90 3RF losartan 25 mg tablet 25 mg PO DAILY Qty: 90 0RF tamsulosin 0.4 mg capsule 0.4 mg PO DAILY Qty: 90 3RF albuterol sulfate [Ventolin HFA] 90 mcg/actuation HFA aerosol inhaler 1 inh inhalation Q4H PRN (Reason: shortness of breath or wheezing) guaifenesin [Mucinex] 600 mg Tablet Extended Release 12hr 1,200 mg PO BID 30 Days Qty: 120 0RF Print Language: Slovak
[2024-10-05] MEDS: SODIUM CHLORIDE 0.9% 1,000 ML IV STA (16:06)
--- NOTE | 2024-10-05 16:22 | XRAY Report ---
PROCEDURE: XR Chest for Line Placement INDICATIONS: RIJ CVC TECHNIQUE: One view of the chest was acquired. COMPARISON: Earlier on 10/05/2024. FINDINGS: Surgical changes and devices: Right axillary clips, right IJ line. The IJ line extends to the proximal right atrium. Lungs and pleura: No pleural effusions or pneumothorax. No consolidation. Mediastinum: Mediastinal contours appear normal. Heart size is normal. Bones and chest wall: No suspicious bony lesions. Overlying soft tissues appear unremarkable. IMPRESSION: No pneumothorax post right IJ line placement which extends to project to the proximal right atrium. Reviewed by: Dave Ford MD on 10/05/2024 4:21 PM PDT Approved by: Dave Ford MD on 10/05/2024 4:21 PM PDT Station ID: [id number]
[2024-10-05] MEDS: VANCOMYCIN INJ 1.25 GM in SODIUM CHLORIDE 0.9% 250 ML IV ONE (16:28)
[2024-10-05] MEDS: CEFEPIME 1 GM VIAL IVP STA (16:37)
--- NOTE | 2024-10-05 17:19 | HISTORY & PHYSICAL EXAMINATION ---
Chief Complaint Chief Complaint Chief Complaint: left foot pain History of Present Illness History [facility] History obtained from: patient History of Present Illness HPI Comment/Other: 79-year-old female who presents to the emergency department with complaints of problems with her left foot. She says she has been having increasing pain and redness in her left foot starting in her left great toe for several days now. She states that the infection did not come on quickly it has slowly escalated. She does not remember losing her left great toenail. At her baseline she is wheelchair-bound, uses her legs to transfer. She lives at home with a family member who cares for her. She states she has not been running any fevers and has been feeling fairly well until today. She tells me she has been a non-smoker for about 6 months. She has a POLST listing DNR on the chart. Meds/Allgy Home Medications Ambulatory Orders Medication Instructions Recorded Confirmed albuterol sulfate 90 mcg/actuation 1 inh inhalation Q4 H PRN shortness 07/21/24 07/29/24 aerosol inhaler (Ventolin HFA) of breath or wheezing guaifenesin 600 mg tablet, 1,200 mg (2 x 600 mg) PO BI D 30 07/21/24 07/29/24 extended release 12 hr (Mucinex) days #120 tabs mirtazapine 15 mg tablet See Rx Instructions .Route 0 07/21/24 07/29/24 .COMPLEX #90 tabs amlodipine 10 mg tablet (Norvasc) 10 mg PO QDAY #90 ta bs 07/27/24 07/29/24 losartan 25 mg tablet 25 mg PO DAILY #90 tabs 04/0 07/28 tamsulosin 0.4 mg capsule 0.4 mg PO DAILY #90 caps Allergies Allergies Allergy/AdvReac Type Severity Reaction Status Date / Time Penicillins Allergy Anaphylaxis Verified 10/05/24 14:09 [facility] Active Problems All Active Problems (Updated 10/05/24 @ 16:42 by Sophia Colon PA-C) Elevated lactic acid level (Acute) Severe sepsis (Acute) Infection of toe (Acute) Cellulitis of left leg (Acute) Bilateral pneumonia (Acute) AMPARO (acute kidney injury) (Acute) Social History Social History (Updated 10/05/24 @ 14:12 by Francisco J Nguyễn, RN, BSN) Smoking Status: Unknown if ever smoked Number of Years Smoked: 58 How many cigarettes a day do you smoke? (20 cigarettes=1 Pk): 10 Do you dip or chew tobacco?: No Do you vape?: No Patient requests smoking cessation consult: No Initiate information on smoking cessation: No Relationship: Physical Activity: Walking Do you feel safe in your home environment?: Yes Suffered physical, verbal, emotional, or financial abuse?: No History of Abuse: No Substance Use: declined to answer POLST Patient has POLST: Yes POLST Status: DNR Review of Systems Status of ROS: 10 or more systems reviewed and unremarkable except as noted in history and below Constitutional Reports: Malaise; Denies: Fever or Chills Eyes Denies: Change in vision Ears, nose, mouth, and throat Denies: Nasal congestion Cardiovascular Reports: swelling of feet/ankles; Denies: Irregular heart rate, chest pain, palpitations or shortness of breath with exertion Respiratory Denies: Shortness of breath or Cough Gastrointestinal Denies: Abdominal pain Genitourinary Denies: Painful urination Musculoskeletal Reports: Extremity pain and Extremity swelling Integumentary/Breast Reports: Skin tenderness and Skin swelling Neurological Denies: Headache Endocrine Denies: Excessive urination Hematologic/Lymphatic Denies: Easy bruising or Easy bleeding Prior Level of Functionality: Wheelchair-bound uses her legs to wheel herself around the house. Exam Exam Vital Signs: Vital Signs x48h Temp Pulse Resp BP Pulse Ox 10/05/24 20:46 95 18 145/64 H 93 10/05/24 19:56 36.4 C L 88 20 121/66 94 10/05/24 19:10 106 H 16 135/83 H 92 10/05/24 18:00 106 H 26 H 162/73 H 92 10/05/24 17:00 108 H 26 H 118/80 92 10/05/24 15:33 102 H 30 H 177/72 H 10/05/24 14:05 37.1 C 109 H 40 H 182/86 H 96 Constitutional Poorly groomed chronically ill-appearing thin female HENMT normocephalic, head/scalp atraumatic, external ears normal and oral mucous membranes normal Eyes conjunctivae normal Neck/C-Spine visual inspection normal and trachea midline Right IJ central line Chest inspection of chest normal and palpation of chest normal Respiratory Tachypneic with occasional rhonchi. She states that she does not feel dyspneic but she looks very short of breath Cardiovascular Tachycardic without murmur Gastrointestinal abdomen soft to palpation and nondistended Extremities Left lower extremity with patchy erythema and scaly skin to the knee with some erythema extending to the lower part of the inner thigh on the left. The nails are severely onychomycotic. It looks as if the left great toenail has broken off of the nailbed at some point. The infection seems to center there. There is no underlying fluctuance palpated. There is no crepitus palpatedThe foot is warm and tender, exquisitely so at the left calf with pain on passive stretch. The skin is not tense. There are pulses present via Doppler. Neurology no focal motor deficit noted and GCS 15 Psychiatry mental status grossly normal, oriented x3, thought process normal and cooperative Skin nails normal (Lower extremities with onychomycotic nails.) See exam of the lower extremities, otherwise no skin rashes. Sepsis Event Note (H) Evaluation Possible source of Sepsis: positive Skin/soft tissue Sepsis Criteria Sepsis Criteria: Recorded Heart Rate greater than 90 bpm, Recorded Respiratory Rate greater than 20, WBC count greater than 12,000 or less than 4000 and Metabolic: lactate > 2 mmol/L Conclusion/Plan Problem List (1) Severe sepsis: Plan: This patient meets sepsis criteria due to her tachycardia, lactic acid level of 3.0, tachypnea and relative hypotension.She states that her symptoms of, over the last week or so. She does not feel like she got sick just this morning. Her white blood cell count is 14.6. Her lactate is 3.0. She has an x-ray of her left foot which is negative for any osteomyelitis. I discussed this patient with Tania Colon PA-C in the emergency department. I agreed to admit this patient to inpatient status. I will admit her to the intensive care unit given her potential for deterioration. This patient does have a POLST listing DNR/DNI. I have requested a CT of the left lower extremity prior to admission. If she has gas on the CT I would definitely recommend transfer to a higher level of care. Initial lactate was drawn at around 1500. I will repeat lactate around 1800. I will repeat CBC in the a.m. I will continue to monitor her renal function, respiratory rate. I do not believe this patient should get sepsis fluid bolus. She appears medically fragile. She does not carry diagnosis of CHF but I am concerned that were we to give her several liters of fluid she might become fluid overloaded and have respiratory worsening. (2) Cellulitis of left leg: Plan: Left lower extremity cellulitis. I doubt necrotizing soft tissue infection but would like CT to rule this out. Patient being placed on broad-spectrum antibiotics, cefepime and vancomycin. Blood cultures are pending. (3) Infection of toe: Plan: I believe the source of this lower extremity cellulitis is the patient's left great toe. I do not palpated a fluctuance. There nor do I see any ischemic changes that would indicate gangrene. I will add an A1c onto this patient's morning labs. She has a history of smoking having stopped about 6 months ago I think there may be an element of peripheral vascular disease here. (4) History of COPD: Plan: She is not on any chronic bronchodilators or inhaled steroids for her COPD. She does have occasional wheeze on exam. Plan I have spent 78 minutes in the care of this patient today. This includes time [id number], review and ordering of diagnostic imaging and laboratory studies and consultation with other providers. Monitoring the patient's signs symptoms, evaluation of medication effectiveness and patient's response to treatment. Lab Results Lab results reviewed: Yes 10/05/24 15:00 10/05/24 15:00 Diagnostic Imaging Results Diagnostic Imaging Results: positive Read contemporaneously Diagnostic Imaging Results Comments: Foot x-ray negative. CT left lower extremity noncontrast no subcutaneous gas or loculated fluid collection in the left lower extremity
[2024-10-05] MEDS: oxyCODONE 5 MG TABLET PO STA (17:20)
[2024-10-05] MEDS ORDERED: iohexoL-300 100 ML VIAL ONE (17:31)
--- NOTE | 2024-10-05 20:01 | CT Report ---
PROCEDURE: CT Lower Extremity LT WO INDICATIONS: rule out gas, severe cellulitis. TECHNIQUE: Noncontrast 3-mm axial sections acquired from the distal tibial shaft to the talar dome, with coronal and sagittal reformats. For radiation dose reduction, the following was used: automated exposure control, adjustment of mA and/or kV according to patient size. COMPARISON: None. FINDINGS: Image quality: Excellent. Bones: No fracture or dislocation. Joint space loss and osteophytosis at the knee. No suspicious osseous lesion. Soft tissues: Subcutaneous edema and skin thickening. No radiopaque foreign body. No free air. No loculated-appearing fluid collection. Trace knee joint effusion. Arteriovascular calcifications. IMPRESSION: No subcutaneous gas or loculated fluid collection. Reviewed by: Waldo Bowman MD on 10/05/2024 8:00 PM PDT Approved by: Waldo Bowman MD on 10/05/2024 8:00 PM PDT Station ID: [id number]
--- OUTSIDE RECORDS SUMMARY | 2024-10-05 20:44 | EXTERNAL MEDICAL SUMMARY RPT | Continuity of Care Document ---
Author Organization [facility] Address [address] [place] [id number] Phone Problems date description facility 2024-07-21 05:48 Impacted cerumen, unspecified e ar [facility] 2024-07-21 05:48 Elevated blood-press ure reading, without diagnosis of hypertension [facility] 2024-07-21 05:48 Cough, unspecified [facility] 2024-07-21 05:48 Dyspnea, unspecified [facility] 2024-07-21 05:48 Diarrhea, unspecified [facility] 2024-07-21 05:48 Altered mental status, unspecif ied [facility] 2024-07-21 05:48 Weakness [facility] 2024-07-21 05:48 Encounter for issue of repeat p rescription [facility] 2024-07-21 05:49 Impacted cerumen, unspecified e ar [facility] 2024-07-21 05:49 Elevated blood-press ure reading, without diagnosis of hypertension [facility] 2024-07-21 05:49 Cough, unspecified [facility] 2024-07-21 05:49 Dyspnea, unspecified [facility] 2024-07-21 05:49 Diarrhea, unspecified [facility] 2024-07-21 05:49 Altered mental status, unspecif ied [facility] 2024-07-21 05:49 Weakness [facility] 2024-07-21 05:49 Encounter for issue of repeat p rescription [facility] 2024-07-22 10:36 Pneumonia, unspecified organism [facility] 2024-07-22 10:36 Acute kidney failure, unspecifi ed [facility] 2024-07-23 15:56 Acute kidney failure, unspecifi ed [facility] 2024-07-23 17:34 Acute kidney failure, unspecifi ed [facility] 2024-07-23 19:47 Acute kidney failure, unspecifi ed [facility] 2024-07-29 07:57 Influenza due to oth er identified influenza virus with unspecified type of pneumonia [facility] 2024-07-29 07:57 Acute kidney failure, unspecifi ed [facility] 2024-07-29 07:57 Shortness of breath [facility] 2024-07-29 07:57 Unspecified abdominal pain [facility] 2024-07-29 07:57 Diarrhea, unspecified [facility] 2024-08-11 10:52 Impacted cerumen, unspecified e ar [facility] 2024-08-11 10:52 Influenza due to oth er identified influenza virus with unspecified type of pneumonia [facility] 2024-08-11 10:52 Acute kidney failure, unspecifi ed [facility] 2024-08-11 10:52 Elevated blood-press ure reading, without diagnosis of hypertension [facility] 2024-08-11 10:52 Cough, unspecified [facility] 2024-08-11 10:52 Dyspnea, unspecified [facility] 2024-08-11 10:52 Shortness of breath [facility] 2024-08-11 10:52 Unspecified abdominal pain [facility] 2024-08-11 10:52 Diarrhea, unspecified [facility] 2024-08-11 10:52 Altered mental status, unspecif ied [facility] 2024-08-11 10:52 Weakness [facility] 2024-08-11 10:52 Encounter for issue of repeat p [facility] Results/Labs test date facility value unit notes Result panel 1 LACTIC ACID, VENOUS 2024-07-20 08:[facility] 0.4 mmol/l N As of November 2022 testing method has changed, this may include reference ranges. Result panel 2 NUCLEATED RED BLOOD CELLS AUTO 2024-07-20 17[facility]06 [facility]100[facility]bc (missing) BASOPHILS # (AUTO) 2024-07-20 17:06 [facility] 0.0 10 3/ul (missing) EOSINOPHILS # (AUTO) 2024-07-20 17:06 [facility] 0.0 10 3/ul (missing) NRBC ABSOLUTE COUNT (AUTO) 2024-07-20 17:06 [facility] 0.00 x10 3/ul (missing) BILIRUBIN,TOTAL 2024-07-20 17:06 [facility] 0.3 mg /dl As of November 2022 testing method has changed, this may include reference ranges. MONOCYTES # (AUTO) 2024-07-20 17:06 [facility] 0.4 10 3/ul (missing) ALBUMIN/GLOBULIN RATIO 2024-07-20 17:06 [facility] 1.1 (missing) (missing) LYMPHOCYTES # (AUTO) 2024-07-20 17:06 [facility] 1.4 10 3/ul (missing) GLUCOSE 2024-07-20 17:06 [facility] 101 mg/dl As of November 2022 testing method has changed, this may include reference ranges. RED CELL DISTRIBUTION WIDTH 2024-07-20 17:06 [facility] 13.2 % (missing) HGB - HEMOGLOBIN 2024-07-20 17:06 [facility] 13.4 g /dl (missing) SODIUM 2024-07-20 17:06 [facility] 132 mmol/l As of November 2022 testing method has changed, this may include reference ranges. ANION GAP 2024-07-20 17:06 [facility] 14.0 (missing ) (missing) PLT - PLATELET COUNT 2024-07-20 17:06 [facility] 142 10 3/ul (missing) AST ASPARTATE AMINOTRANSFERASE 2024-07-20 17:06 [facility] 19 iu/l As of November 2022 testing method has changed, this may include reference ranges. NEUTROPHILS # (AUTO) 2024-07-20 17:06 [facility] 2.2 10 3/ul (missing) MAGNESIUM 2024-07-20 17:06 [facility] 2.4 mg/dl As of November 2022 testing method has changed, this may include reference ranges. CARBON DIOXIDE - CO2 2024-07-20 17:06 [facility] 20 mmol/l As of November 2022 testing method has changed, this may include reference ranges. BNP - B-NATRIURETIC PEPTIDE 2024-07-20 17:06 [facility] 23 pg/ml (missing) MEAN CORPUSCULAR HEMOGLOBIN 2024-07-20 17:06 [facility] 27.8 pg (missing) GLOBULIN 2024-07-20 17:06 [facility] 3.6 g/dl (missing) ALBUMIN 2024-07-20 17:06 [facility] 3.9 g/dl As of November 2022 testing method has changed, this may include reference ranges. MEAN CORPUSCULAR HGB CONC 2024-07-20 17:06 [facility] 30.7 g/dl (missing) WHITE BLOOD COUNT 2024-07-20 17:06 [facility] 4.0 x10 3/ul (missing) POTASSIUM 2024-07-20 17:06 [facility] 4.5 mmol/l As of November 2022 testing method has changed, this may include reference ranges. CREATININE 2024-07-20 17:06 [facility] 4.6 mg/dl As of November 2022 testing method has changed, this may include reference ranges. RED BLOOD COUNT 2024-07-20 17:06 [facility] 4.82 10 6/ul (missing) HCT - HEMATOCRIT 2024-07-20 17:06 [facility] 43.7 % (missing) TOTAL PROTEIN 2024-07-20 17:06 [facility] 7.5 g/dl As of November 2022 testing method has changed, this may include reference ranges. BUN - BLOOD UREA NITROGEN 2024-07-20 17:06 [facility] 71 mg/dl As of Nov testing method has changed, this may include reference ranges. ALT ALANINE AMINOTRANSFERASE 2024-07-20 17:06 [facility] 8 iu/l As of November 2022 testing method has changed, this may include reference ranges. CALCIUM 2024-07-20 17:06 [facility] 8.5 mg/dl As of November 2022 testing method has changed, this may include reference ranges. ALKALINE PHOSPHATASE 2024-07-20 17:06 [facility] 83 iu/l As of November 2022 testing method has changed, this may include reference ranges. LIPASE 2024-07-20 17:06 [facility] 89 u/l As of November 2022 testing method has changed, this may include reference ranges. GFR - MDRD 2024-07-20 17:06 [facility] 9 (augusto gusman) Social History date description facility
[2024-10-05] MEDS ORDERED: NON FORMULARY MED (Albuterol Sulfate [Ventolin Hfa] 90 mcg/actuation HFA aerosol inhaler) INH PRN (20:49)
[2024-10-05] MEDS ORDERED: ACETAMINOPHEN 325 MG TABLET PO PRN (20:49)
[2024-10-05] MEDS ORDERED: HYDROmorphone 0.5 MG/0.5 ML SYRINGE IVP PRN (20:49)
[2024-10-05] MEDS ORDERED: ALBUTEROL NEB 2.5 MG/3 ML INH PRN (21:01)
[2024-10-05] MEDS: SODIUM CHLORIDE FLUSH 0.9% 10 ML SYRINGE IVP PRN (21:53)
[2024-10-05] MEDS: HEPARIN 5,000 UNIT/ML VIAL SUBQ SCH (21:53)
[2024-10-05] MEDS: MIRTAZAPINE 15 MG TABLET PO SCH (21:53)
[2024-10-06] MEDS: SODIUM CHLORIDE FLUSH 0.9% 10 ML SYRINGE IVP SCH (00:24)
[2024-10-06] MEDS: CEFEPIME 2 GM in SODIUM CHLORIDE 0.9% MINIBAG 100 ML IV SCH (04:51)
[2024-10-06 08:25] LABS: BASOPHILS % (AUTO) 0.2 %; HCT - HEMATOCRIT 30.1 % (37.0-47.0); HGB - HEMOGLOBIN 9.5 g/dL (12.0-16.0); LYMPHOCYTES % (AUTO) 3.8 %; MEAN CORPUSCULAR HEMOGLOBIN 29.4 pg (27.0-31.0); MEAN CORPUSCULAR HGB CONC 31.6 g/dL (32.0-36.0); MEAN CORPUSCULAR VOLUME 93.2 fL (81.0-99.0); MEAN PLATELET VOLUME 9.6 fL (7.9-10.8); MONOCYTES % (AUTO) 2.5 %; NEUTROPHILS % (AUTO) 79.5 %; PLT - PLATELET COUNT 141 10^3/uL (130-450); RED BLOOD COUNT 3.23 10^6/uL (4.20-5.40); RED CELL DISTRIBUTION WIDTH 14.5 % (12.0-15.0); WHITE BLOOD COUNT 10.7 x10^3/uL (4.8-10.8)
[2024-10-06 08:26] LABS: SLIDE REVIEW? Indicated
[2024-10-06 08:27] LABS: ABNORMAL LYMPHS % (MANUAL) 0 %
[2024-10-06 08:31] LABS: CALCIUM 8.7 mg/dL (8.5-10.3); CREATININE 1.2 mg/dL (0.6-1.3); POTASSIUM 3.7 mmol/L (3.5-4.5)
[2024-10-06 08:45] LABS: BAND NEUTROPHILS % (MANUAL) 6 %; LYMPHOCYTES # (MANUAL) 0.3 10^3/uL (1.5-3.5); LYMPHOCYTES % (MANUAL) 3 %; MONOCYTES # (MANUAL) 0.3 10^3/uL (0.0-1.0); NEUTROPHILS # (MANUAL) 10.1 10^3/uL (1.5-6.6)
[2024-10-06 08:47] LABS: PLATELET ESTIMATE, MANUAL NORMAL (130-450,000) (NORMAL); PLATELET MORPHOLOGY NORMAL APPEARANCE (NORMAL); RBC MORPHOLOGY (MULTIPLE) NORMAL APPEARANCE (NORMAL)
[2024-10-06 08:49] LABS: DIFFERENTIAL COMMENT MANUAL DIFFERENTIAL; WBC MORPHOLOGY (MULTIPLE) NORMAL APP (NORMAL)
[2024-10-06] MEDS: oxyCODONE 5 MG TABLET PO PRN (09:35)
[2024-10-06 10:13] LABS: ESTIMATED AVERAGE GLUCOSE 105 mg/dL (70-100); HEMOGLOBIN A1c% 5.3 % (4.27-6.07)
--- NOTE | 2024-10-06 10:21 | PROVIDER PROGRESS NOTE ---
Subjective Prog Note Date Prog Note Date: 10/06/24 Subjective Subjective: When I walked in the room, I asked how she was doing today. She asked me why I was asking. I explained to her that I care, and she begrudgingly admit that she feels better today than she did yesterday. Still has much pain in her leg. Current Medications Current Medications Current Medications: Current Medications Generic Name Dose Route Start Last Admin Trade Name Freq PRN Reason Stop Dose Admin Acetaminophen 650 mg 10/05/24 20:49 Acetaminophen 325 Mg Tablet PO Q4HR PRN Pain 1 to 4, or Fever Albuterol 2.5 mg 10/05/24 21:01 Albuterol Neb 2.5 Mg/3 Ml INH RTQ4H PRN Wheezing Heparin Sodium (Porcine) 5,000 unit 10/05/24 21:00 10/06/24 09:07 Heparin 5,000 Unit/Ml Vial SUBQ 5,000 unit BID PEMA Administration Hydromorphone HCl 0.5 mg 10/05/24 20:49 Hydromorphone 0.5 Mg/0.5 Ml Syringe IVP Q2H PRN Pain 8 to 10 Cefepime HCl 2 gm/ Sodium 100 mls @ 200 mls/hr 10/06/24 05:00 10/06/24 05:40 Chloride IV Infused Q12H PEMA Infusion Mirtazapine 15 mg 10/05/24 21:00 10/05/24 21:53 Mirtazapine 15 Mg Tablet PO 15 mg HS PEMA Administration Ondansetron HCl 4 mg 10/05/24 20:49 Ondansetron 4 Mg/2 Ml Vial IVP Q6HR PRN Nausea / Vomiting Oxycodone HCl 5 mg 10/05/24 20:49 10/06/24 09:35 Oxycodone 5 Mg Tablet PO 5 mg Q4HR PRN Administration Pain 5 to 7 Sodium Chloride 10 ml 10/05/24 20:49 10/06/24 04:52 Sodium Chloride Flush 0.9% 10 Ml Syringe IVP 10 ml PRN PRN Administration NEEDED PER PROVIDER ORDERS Sodium Chloride 10 ml 10/06/24 01:00 10/06/24 09:18 Sodium Chloride Flush 0.9% 10 Ml Syringe IVP 10 ml 0100,0900,1700 PEMA Administration Objective Vital Signs/Intake & Output Reviewed Vital Signs: Yes Vital Signs: Vital Signs x48h Temp Pulse Resp BP Pulse Ox O2 Flow Rate 10/06/24 10:00 84 23 106/51 L 97 2 10/06/24 09:00 88 25 H 113/51 L 97 2 10/06/24 08:00 37.5 C 86 23 122/59 L 94 10/06/24 07:00 91 26 H 126/59 L 95 10/06/24 06:00 37.3 C 94 27 H 136/62 H 91 L 10/06/24 05:00 106 H 20 136/76 H 92 10/06/24 04:00 91 23 111/56 L 96 10/06/24 03:00 92 22 122/56 L 96 2 Intake & Output: Intake & Output 10/03/24 10/04/24 10/05/24 10/06/24 23:59 23:59 23:59 23:59 Intake Total 1166 / 1166 220 / 220 Balance 1166 / 1166 220 / 220 Weight (kg) 51.5 kg Objective General Appearance: positive No acute distress, Alert and Other (appears less toxic today) Eyes Bilateral: positive Normal inspection ENT: positive ENT inspection nml Neck: positive Nml inspection Respiratory: positive Chest non-tender and No respiratory distress; negative Wheezes, Rales or Rhonchi Cardiovascular: positive Regular rate & rhythm Abdomen: positive No distention Extremities: positive Other (Much less erythema of the left lower extremity today. Remains with patchy erythema but it has coalesced. This shining edema at the lower leg has decreased now to the point where the skin is red and wrinkled. Her pulses are easily palpable in the left foot now. Remains with erythema around the na) Neurologic/Psychiatric: positive Oriented x3 Lab Results 10/06/24 07:53 10/06/24 07:53 Other Labs: Lab Results x24hrs 10/06/24 10/05/24 10/05/24 Range/Units 07:53 21:15 18:50 WBC 10.7 (4.8-10.8) x10^3/uL RBC 3.23 L (4.20-5.40) 10^6/uL Hgb 9.5 L (12.0-16.0) g/dL Hct 30.1 L (37.0-47.0) % MCV 93.2 (81.0-99.0) fL MCH 29.4 (27.0-31.0) pg MCHC 31.6 L (32.0-36.0) g/dL RDW 14.5 (12.0-15.0) % Plt Count 141 (130-450) 10^3/uL MPV 9.6 (7.9-10.8) fL Neut # (Auto) Not Reportable Lymph # (Auto) Not Reportable [place] # (Auto) Not Reportable Eos # (Auto) Not Reportable Baso # (Auto) Not Reportable Absolute Nucleated RBC Not Reportable Total Counted 100 Band Neuts % (Manual) 6 (0 - 10) % Abnorm Lymph % (Manual) 0 % Nucleated RBC % Not Reportable Neutrophils # (Manual) 10.1 H (1.5-6.6) 10^3/uL Lymphocytes # (Manual) 0.3 L (1.5-3.5) 10^3/uL Monocytes # (Manual) 0.3 (0.0-1.0) 10^3/uL Eosinophils # (Manual) 0.0 (0-0.7) 10^3/uL Basophils # (Manual) 0.0 (0-0.1) 10^3/uL Differential Comment MANUAL DIFFERENTIAL Manual Slide Review Indicated WBC Morphology NORMAL AYSE (NORMAL) Platelet Estimate NORMAL (130-450,000) (NORMAL) Platelet Morphology NORMAL APPEARANCE (NORMAL) RBC Morph Micro Appear NORMAL APPEARANCE (NORMAL) PT (9.9-12.6) secs INR (0.8-1.2) Sodium 135 (135-145) mmol/L Potassium 3.7 (3.5-4.5) mmol/L Chloride 108 (101-111) mmol/L Carbon Dioxide 20 L (21-32) mmol/L Anion Gap 7.0 (6-13) BUN 28 H (6-20) mg/dL Creatinine 1.2 (0.6-1.3) mg/dL Estimated GFR (MDRD) 43 L (>89) Glucose 106 H (74-104) mg/dL Estimat Average Glucose 105 H (70-100) mg/dL Hemoglobin A1c % 5.3 (4.27-6.07) % Lactic Acid < 0.2 L (0.5-2.2) mmol/L Calcium 8.7 (8.5-10.3) mg/dL Magnesium (1.7-2.3) mg/dL Total Bilirubin (0.2-1.0) mg/dL AST (10-42) IU/L ALT (10-60) IU/L Alkaline Phosphatase (42-121) IU/L Total Protein (6.4-8.9) g/dL Albumin (3.2-5.5) g/dL Globulin (2.1-4.2) g/dL Albumin/Globulin Ratio (1.0-2.2) Nasal Screen MRSA (PCR) NEGATIVE (NEGATIVE) 10/05/24 Range/Units 15:00 WBC 14.6 H (4.8-10.8) x10^3/uL RBC 4.09 L (4.20-5.40) 10^6/uL Hgb 11.8 L (12.0-16.0) g/dL Hct 38.6 (37.0-47.0) % MCV 94.4 (81.0-99.0) fL MCH 28.9 (27.0-31.0) pg MCHC 30.6 L (32.0-36.0) g/dL RDW 14.4 (12.0-15.0) % Plt Count 161 (130-450) 10^3/uL MPV 9.3 (7.9-10.8) fL Neut # (Auto) Not Reportable Lymph # (Auto) Not Reportable [place] # (Auto) Not Reportable Eos # (Auto) Not Reportable Baso # (Auto) Not Reportable Absolute Nucleated RBC Not Reportable Total Counted 100 Band Neuts % (Manual) 7 (0 - 10) % Abnorm Lymph % (Manual) 0 % Nucleated RBC % Not Reportable Neutrophils # (Manual) 14.2 H (1.5-6.6) 10^3/uL Lymphocytes # (Manual) 0.3 L (1.5-3.5) 10^3/uL Monocytes # (Manual) 0.1 (0.0-1.0) 10^3/uL Eosinophils # (Manual) 0.0 (0-0.7) 10^3/uL Basophils # (Manual) 0.0 (0-0.1) 10^3/uL Differential Comment MANUAL DIFFERENTIAL Manual Slide Review WBC Morphology (NORMAL) Platelet Estimate NORMAL (130-450,000) (NORMAL) Platelet Morphology NORMAL APPEARANCE (NORMAL) RBC Morph Micro Appear NORMAL APPEARANCE (NORMAL) PT 12.8 H (9.9-12.6) secs INR 1.1 (0.8-1.2) Sodium 132 L (135-145) mmol/L Potassium 3.8 (3.5-4.5) mmol/L Chloride 99 L (101-111) mmol/L Carbon Dioxide 22 (21-32) mmol/L Anion Gap 11.0 (6-13) BUN 30 H (6-20) mg/dL Creatinine 1.5 H (0.6-1.3) mg/dL Estimated GFR (MDRD) 33 L (>89) Glucose 120 H (74-104) mg/dL Estimat Average Glucose (70-100) mg/dL Hemoglobin A1c % (4.27-6.07) % Lactic Acid 3.1 H* (0.5-2.2) mmol/L Calcium 9.7 (8.5-10.3) mg/dL Magnesium 2.0 (1.7-2.3) mg/dL Total Bilirubin 0.9 (0.2-1.0) mg/dL AST 10 (10-42) IU/L ALT 6 L (10-60) IU/L Alkaline Phosphatase 76 (42-121) IU/L Total Protein 7.9 (6.4-8.9) g/dL Albumin 4.0 (3.2-5.5) g/dL Globulin 3.9 (2.1-4.2) g/dL Albumin/Globulin Ratio 1.0 (1.0-2.2) Nasal Screen MRSA (PCR) (NEGATIVE) Sepsis Event Note (H) Evaluation Current Stage of Sepsis: Resolved Possible source of Sepsis: positive Skin/soft tissue Confirmed Source and Organism (if known) of Sepsis: possible staph epi, methicillin resistant Assessment/Plan Problem List (1) Severe sepsis: Impression: at the time of admission, this patient meets sepsis criteria due to her tachycardia, lactic acid level of 3.0, tachypnea and relative hypotension.She states that her symptoms started ,over the last week or so. She does not feel like she got sick just that morning. Her white blood cell count is 14.6. Her lactate is 3.0. She has an x-ray of her left foot which is negative for any osteomyelitis. Initial lactate was elevated at 3.1, but 3 hours later had normalized, during that time, she got one liter of IVF. Overnight her WBC has normalized and her respiratory rate has improved dramatically. She appears much less toxic. IV access has been difficult, she pulled out the right IJ central line placed in the ED. Blood cultures from less than 24 hours ago have been positive for Staph epi which is methicillin-resistant. This is via PCR. Given that is methicillin- resistant I am less likely to consider that it is a skin contaminant. She has 2 additional sets of blood cultures which show no growth after 1 day. I did order a second set of blood cultures today. Due to the fact that the staph epi is methicillin-resistant I am continuing vancomycin. I had considered discontinuation of vancomycin due to the fact that her MRSA screen from her nares was negative. (2) Bacteremia: Impression: PCR positive for methicillin-resistant staph epidermis. This is Gram-positive bacteremia, therefore this patient will need an echocardiogram. This is ordered and done today. Report is pending. I have ordered a second set of blood cultures this afternoon as well. Will need negative blood cultures prior to placement of PICC line. Anticipate this patient will need 2 weeks of IV antibiotics. (3) Cellulitis of left leg: Impression: CT negative for any fluid collection or gas, just generalized edema. Cellulitis looks to be adequately treated with current antibiotic regimen of cefepime and vancomycin. I will continue this and de-escalate as appropriate per blood culture results. I am transferring this patient out of the ICU this afternoon. She has done well overnight, her tachypnea has resolved her white count is coming down she remains with blood pressures that are close to 100 and she is still on 2 L of oxygen via nasal cannula which is different than her baseline but I do not think she meets criteria for ICU at this point. (4) Infection of toe: Impression: Severely onychomycotic toenails which likely opened up this patient to an infection. She has easily palpable pulses in the lower extremities and her hemoglobin A1c is negative at 5.3%. (5) History of COPD: Impression: Longstanding history of COPD. Albuterol is listed in her home meds she also takes guaifenesin. These medications have been resumed. I have spent 36 minutes in the care of this patient today. This includes time [id number], review and ordering of diagnostic imaging and laboratory studies and consultation with other providers. Monitoring the patient's signs symptoms, evaluation of medication effectiveness and patient's response to treatment.
[2024-10-06] MEDS: VANCOMYCIN INJ 500 MG in SODIUM CHLORIDE 0.9% 100ML 100 ML IV SCH (15:42)
[2024-10-06] MEDS ORDERED: VANCOMYCIN INJ 500 MG in SODIUM CHLORIDE 0.9% 100ML 100 ML IV SCH (16:00)
--- NOTE | 2024-10-06 17:00 | PHARMACY PROGRESS NOTE ---
Best Possible Medication History Admit Date and Time: 10/05/242004 Home Medications Medication Instructions Recorded Confirmed Type albuterol sulfate 90 mcg/actuation 1 inh inhalation Q4 H PRN shortness 07/21/24 10/06/24 History aerosol inhaler (Ventolin HFA) of breath or wheezing mirtazapine 15 mg tablet See Rx Instructions .Route 0 07/21/24 10/06/24 Rx .COMPLEX #90 tabs losartan 25 mg tablet 25 mg PO DAILY #90 tabs 04/0 07/2810/06/24 Rx tamsulosin 0.4 mg capsule 0.4 mg PO DAILY #90 caps 10/06/24 Rx Processed by: Pharmacy Medications reviewed in ED?: No Medication History completed: Yes Patient Interview: Pt unable to participate Secondary Source(s): Pharmacy records and Insurance records [facility] Statement: As the person ultimately responsible for medication therapy, providers are able to order a medication from an existing home medication list in [facility] via the "Reconcile Routine" prior to Confirmation of that medication by direct support specialist. Such practice is discouraged except when the physician, in their clinical judgment, deems that a medical need exists for a medication without regard to previous use.
[2024-10-06] MEDS: guaiFENesin 600 MG TABLET PO SCH (21:38)
[2024-10-07 04:45] LABS: BASOPHILS % (AUTO) 0.4 %; EOSINOPHILS # (AUTO) 0.1 10^3/uL (0.0-0.7); EOSINOPHILS % (AUTO) 0.8 %; HCT - HEMATOCRIT 28.2 % (37.0-47.0); HGB - HEMOGLOBIN 8.7 g/dL (12.0-16.0); LYMPHOCYTES # (AUTO) 0.7 10^3/uL (1.5-3.5); LYMPHOCYTES % (AUTO) 6.3 %; MEAN CORPUSCULAR HEMOGLOBIN 29.1 pg (27.0-31.0); MEAN CORPUSCULAR HGB CONC 30.9 g/dL (32.0-36.0); MEAN CORPUSCULAR VOLUME 94.3 fL (81.0-99.0); MEAN PLATELET VOLUME 9.6 fL (7.9-10.8); MONOCYTES # (AUTO) 0.4 10^3/uL (0.0-1.0); MONOCYTES % (AUTO) 3.8 %; NEUTROPHILS # (AUTO) 9.2 10^3/uL (1.5-6.6); NEUTROPHILS % (AUTO) 88.4 %; PLT - PLATELET COUNT 127 10^3/uL (130-450); RED BLOOD COUNT 2.99 10^6/uL (4.20-5.40); RED CELL DISTRIBUTION WIDTH 14.7 % (12.0-15.0); WHITE BLOOD COUNT 10.4 x10^3/uL (4.8-10.8)
[2024-10-07 05:02] LABS: CALCIUM 8.4 mg/dL (8.5-10.3); CREATININE 1.2 mg/dL (0.6-1.3); POTASSIUM 3.8 mmol/L (3.5-4.5)
--- NOTE | 2024-10-07 14:31 | ECHO Report ---
Version: 1 Study ID: [id number] [id number] Adult Echocardiogram Report Name: RADHA ELAINE Study Date: 10/06/2024, 3: 18 PM BP: 118 / 57 mmHg Patient Location: ICU^2303^01 HR: 75 bpm : 1945 (MM/DD/YYYY) Gender: Female Height: 57 in Age: 79 Years Weight: 113.538 lb Reason For Study: bacteremia History: Bacteremia - Sepsis, cellulitis of left leg, infection of toe Interpretation Summary The left ventricle is normal in size. There is normal left ventricular wall thickness. The visual left ventricular ejection fraction 60-65%. The right ventricle is normal in size and function. No apparent valvular disease, or vegetation noted Left Ventricle: The left ventricle is normal in size. There is normal left ventricular wall thickness. Global left ventricular systolic function is normal. The visual left ventricular ejection fraction is estimated at 60 to 65%. No regional wall motion abnormalities are present. Right Ventricle: The right ventricle is normal in size and function. Aortic Valve: The aortic valve is trileaflet. The aortic valve is mildly thickened. Aortic valve sclerosis is present without stenosis. Cannot exclude aortic valve vegetation. No aortic regurgitation is present. Mitral Valve: The mitral valve leaflets appear thickened, but with normal motion. Mild mitral annular calcification is present. Cannot exclude mitral valve vegetation. No evidence of mitral stenosis is seen. There is mild mitral regurgitation. Tricuspid Valve: The tricuspid valve is normal in structure and function. Cannot exclude tricuspid valve vegetation. Mild tricuspid regurgitation present. Pulmonic Valve: The pulmonic valve is normal in structure and function. Cannot exclude pulmonic valve vegetation. Trace pulmonic valvular regurgitation is present. Left Atrium: The left atrium is mildly dilated. The left atrial volume indexed to body surface area is 38 ml/m2. This refers to the maximal volume measured prior to mitral valve opening. Right Atrium: Right atrial size is normal. The inferior vena cava is normal in diameter (<2.1cm) and there is complete collapse with inspiration (estimated right atrial pressure 0-5mmHg). Atrial Septum: The interatrial septum is not well seen. Interatrial shunt cannot be excluded. Aorta: The ascending aorta is normal in size. The diameter of the ascending aorta is 3.1 cm. The sinuses of Valsalva are normal in size. The aortic annulus measures 3.1cm in diameter. Pulmonary Artery: The pulmonary artery systolic pressure, calculated from a peak tricuspid regurgitant velocity in conjunction with an estimated right atrial pressure, is 28 - 33mmHg. CPT Codes: 85043/[id number]: Transthoracic Echo with Spectral and Color Doppler. Doppler Measurements & Calculations Ao max P.0 mmHg Ao V2 max: 132.5 cm/sec LV V1 max: 121.8 cm/sec LV V1 max P.9 mmHg MV A max jeanne: 94.7 cm/sec MV dec time: 0.25 sec MV DVI-pr: 0.83 MV E max jeanne: 78.2 cm/sec PA max P.28 mmHg PA V2 max: 75.5 cm/sec RAP systole: 5.0 mmHg TR max P.0 mmHg TR max jeanne: 264.8 cm/sec MMode/2D Measurements & Calculations Ao root diam: 3.1 cm EF (est.): 72.3 % ESV(sp4-el): 50.9 ml Heart Rate: 75.0 BPM Height (metric): 144.8 cm IVSd: 1.00 cm LA A4C-A/L: 17.0 cm² LA dimension: 5.1 cm LA ESV-A/L: 46.5 ml LAV(MOD-sp2): 52.9 ml LAV(MOD-sp4): 56.4 ml LVIDd: 3.1 cm LVIDs: 1.88 cm LVPWd: 1.15 cm Systolic Pressure: 118.0 mmHg TAPSE: 1.67 cm Other Measurements & Calculations Ao root diam: 3.1 cm Ao V2 max: 132.5 cm/sec BMI: 24.6 kilograms/m² BSA: 1.41 m² BSA(Haycock): 1.45 m² Diastolic Pressure: 57.0 mmHg EDV(Teich): 39.0 ml EF (est.): 72.3 % EF(Teich): 72.3 % ESV(sp4-el): 50.9 ml ESV(Teich): 10.8 ml FS: 40.2 % Heart Rate: 75.0 BPM Height (metric): 144.8 cm IVSd: 1.00 cm LA A4C-A/L: 17.0 cm² LA dimension: 5.1 cm LA ESV-A/L: 46.5 ml LAV(MOD-sp2): 52.9 ml LAV(MOD-sp4): 56.4 ml LV V1 max: 121.8 cm/sec LVIDd: 3.1 cm LVIDs: 1.88 cm LVPWd: 1.15 cm MV A max jeanne: 94.7 cm/sec MV dec time: 0.25 sec MV DVI-pr: 0.83 MV E max jeanne: 78.2 cm/sec MV E/A: 0.83 PA max P.28 mmHg PA V2 max: 75.5 cm/sec RAP systole: 5.0 mmHg RVSP(TR): 33.0 mmHg Systolic Pressure: 118.0 mmHg TAPSE: 1.67 cm TR max P.0 mmHg TR max jeanne: 264.8 cm/sec TV max P.0 mmHg Weight (metric): 51.5 kg Lat E/e': 17.3 Med E/e': 17.5 EF(sp-el): 50.0 % Irving Aguilar MD 10/07/2024, 2: 30 PM Ordering Physician: Mee Sinha Referring Physician: Sophia Colon Performed By: Vinita Hall RDCS
--- NOTE | 2024-10-07 17:03 | PROVIDER PROGRESS NOTE ---
Subjective Prog Note Date Prog Note Date: 10/07/24 Subjective Pt reports feeling: Improved Subjective: She feels that her pain is better and she is feeling better overall, but not great. She has been able to maintain oxygen sats on room air while awake, but dozes off frequently then needs oxygen. Current Medications Current Medications Current Medications: Current Medications Generic Name Dose Route Start Last Admin Trade Name Freq PRN Reason Stop Dose Admin Acetaminophen 650 mg 10/05/24 20:49 Acetaminophen 325 Mg Tablet PO Q4HR PRN Pain 1 to 4, or Fever Albuterol 2.5 mg 10/05/24 21:01 Albuterol Neb 2.5 Mg/3 Ml INH RTQ4H PRN Wheezing Guaifenesin 1,200 mg 10/06/24 21:00 10/07/24 09:03 Guaifenesin 600 Mg Tablet PO 1,200 mg BID PEMA Administration Heparin Sodium (Porcine) 5,000 unit 10/05/24 21:00 10/07/24 09:03 Heparin 5,000 Unit/Ml Vial SUBQ 5,000 unit BID PEMA Administration Hydromorphone HCl 0.5 mg 10/05/24 20:49 Hydromorphone 0.5 Mg/0.5 Ml Syringe IVP Q2H PRN Pain 8 to 10 Cefepime HCl 2 gm/ Sodium 100 mls @ 200 mls/hr 10/06/24 05:00 10/07/24 16:52 Chloride IV 200 mls/hr Q12H PEMA Administration Vancomycin HCl 500 mg/ Sodium 100 mls @ 100 mls/hr 10/06/24 16:00 10/07/24 16:45 Chloride IV 100 mls/hr Q24H PEMA Administration Mirtazapine 15 mg 10/05/24 21:00 10/06/24 21:38 Mirtazapine 15 Mg Tablet PO 15 mg HS PEMA Administration Ondansetron HCl 4 mg 10/05/24 20:49 Ondansetron 4 Mg/2 Ml Vial IVP Q6HR PRN Nausea / Vomiting Oxycodone HCl 5 mg 10/05/24 20:49 10/07/24 09:02 Oxycodone 5 Mg Tablet PO 5 mg Q4HR PRN Administration Pain 5 to 7 Sodium Chloride 10 ml 10/05/24 20:49 10/06/24 04:52 Sodium Chloride Flush 0.9% 10 Ml Syringe IVP 10 ml PRN PRN Administration NEEDED PER PROVIDER ORDERS Sodium Chloride 10 ml 10/06/24 01:00 10/07/24 16:46 Sodium Chloride Flush 0.9% 10 Ml Syringe IVP 10 ml 0100,0900,1700 PEMA Administration Objective Vital Signs/Intake & Output Reviewed Vital Signs: Yes Vital Signs: Vital Signs x48h Pulse Resp BP Pulse Ox O2 Flow Rate 10/07/24 14:00 74 15 110/68 92 2 Intake & Output: Intake & Output 10/04/24 10/05/24 10/06/24 10/07/24 23:59 23:59 23:59 23:59 Intake Total 1166 / 1166 710 / 710 260 / 260 Output Total 2150 / 2150 1000 / 1000 Balance 1166 / 1166 -1440 / -1440 -740 / -740 Weight (kg) 51.5 kg Objective General Appearance: positive No acute distress, Alert and Other (appears less toxic today) Eyes Bilateral: positive Normal inspection ENT: positive ENT inspection nml Neck: positive Nml inspection Respiratory: positive Chest non-tender and No respiratory distress; negative Wheezes, Rales or Rhonchi Cardiovascular: positive Regular rate & rhythm Abdomen: positive No distention Extremities: positive Other (mild dec in erythema. Remains with patchy erythema but it has coalesced. This shiny edema at the lower leg has decreased now to the point where the skin is red and wrinkled. Her pulses are easily palpable in the left foot now. stil erythem keshia the nail bed) Neurologic/Psychiatric: positive Oriented x3 Lab Results 10/07/24 04:29 10/07/24 04:29 Other Labs: Lab Results x24hrs 10/07/24 Range/Units 04:29 WBC 10.4 (4.8-10.8) x10^3/uL RBC 2.99 L (4.20-5.40) 10^6/uL Hgb 8.7 L (12.0-16.0) g/dL Hct 28.2 L (37.0-47.0) % MCV 94.3 (81.0-99.0) fL MCH 29.1 (27.0-31.0) pg MCHC 30.9 L (32.0-36.0) g/dL RDW 14.7 (12.0-15.0) % Plt Count 127 L (130-450) 10^3/uL MPV 9.6 (7.9-10.8) fL Neut # (Auto) 9.2 H (1.5-6.6) 10^3/uL Lymph # (Auto) 0.7 L (1.5-3.5) 10^3/uL Cochran # (Auto) 0.4 (0.0-1.0) 10^3/uL Eos # (Auto) 0.1 (0.0-0.7) 10^3/uL Baso # (Auto) 0.0 (0.0-0.1) 10^3/uL Absolute Nucleated RBC 0.00 x10^3/uL Nucleated RBC % 0.0 /100WBC Sodium 137 (135-145) mmol/L Potassium 3.8 (3.5-4.5) mmol/L Chloride 112 H (101-111) mmol/L Carbon Dioxide 21 (21-32) mmol/L Anion Gap 4.0 L (6-13) BUN 35 H (6-20) mg/dL Creatinine 1.2 (0.6-1.3) mg/dL Estimated GFR (MDRD) 43 L (>89) Glucose 109 H (74-104) mg/dL Calcium 8.4 L (8.5-10.3) mg/dL Sepsis Event Note (H) Evaluation Current Stage of Sepsis: Resolved Possible source of Sepsis: positive Skin/soft tissue Confirmed Source and Organism (if known) of Sepsis: possible staph epi, methicillin resistant Assessment/Plan Problem List (1) Cellulitis of left leg: Impression: CT negative for any fluid collection or gas, just generalized edema. Cellulitis looks to be adequately treated with current antibiotic regimen of cefepime and vancomycin. I will continue this and de-escalate as appropriate per blood culture results. She does not appear to be developing and abscess, but redness is persisting. Swelling is going down. (2) Severe sepsis: Impression: at the time of admission, this patient meets sepsis criteria due to her tachycardia, lactic acid level of 3.0, tachypnea and relative hypotension.She states that her symptoms started ,over the last week or so. She does not feel like she got sick just that morning. Her white blood cell count was 14.6. Her lactate was 3.0. She has an x-ray of her left foot which is negative for any osteomyelitis. Initial lactate was elevated at 3.1, but 3 hours later had normalized, during that time, she got one liter of IVF. IV access has been difficult, she pulled out the right IJ central line placed in the ED. Blood cultures have been positive for Staph epi which is methicillin-resistant. This is via PCR. Given that is methicillin-resistant I am less likely to consider that it is a skin contaminant. It is only out of one bottle. She has 2 additional sets of blood cultures which show no growth after 1 day. Due to the fact that the staph epi is methicillin-resistant I am continuing vancomycin. I had considered discontinuation of vancomycin due to the fact that her MRSA screen from her nares was negative. Will await further speciation and dc vancomycin if not indicated tomorrow. Although her sepis is resolved, I am awaiting speciation of cultures for appropriate abx therapy, and i am treating her L leg cellulitis with parenteral abx. Cannot place PICC until I know whether she has bacteremia, and pending clearance of the bacteremia. (3) Bacteremia: Impression: PCR positive for methicillin-resistant staph epidermis. This is Gram-positive bacteremia, therefore this patient will need an echocardiogram. Echocardiogram is not remarkable for valvular disease or vegetations. The EF is normal and there is not strong evidence for right heart failure. (4) Infection of toe: Impression: Severely onychomycotic toenails which likely opened up this patient to an infection. She has easily palpable pulses in the lower extremities and her hemoglobin A1c is negative at 5.3%. (5) History of COPD: Impression: Longstanding history of COPD. Albuterol is listed in her home meds she also takes guaifenesin. These medications have been resumed. no evidence of right heart failure. I have spent 38 minutes in the care of this patient today. This includes time [id number], review and ordering of diagnostic imaging and laboratory studies. Monitoring the patient's signs symptoms, evaluation of medication effectiveness and patient's response to treatment.
[2024-10-08] MEDS: ONDANSETRON 4 MG/2 ML VIAL IVP PRN (03:13)
[2024-10-08 07:05] LABS: CALCIUM 8.6 mg/dL (8.5-10.3); POTASSIUM 4.1 mmol/L (3.5-4.5)
[2024-10-08 07:07] LABS: BASOPHILS % (AUTO) 0.2 %; EOSINOPHILS # (AUTO) 0.2 10^3/uL (0.0-0.7); EOSINOPHILS % (AUTO) 2.6 %; HCT - HEMATOCRIT 29.1 % (37.0-47.0); LYMPHOCYTES % (AUTO) 10.8 %; MEAN CORPUSCULAR HEMOGLOBIN 29.4 pg (27.0-31.0); MEAN CORPUSCULAR HGB CONC 30.9 g/dL (32.0-36.0); MEAN CORPUSCULAR VOLUME 95.1 fL (81.0-99.0); MEAN PLATELET VOLUME 9.7 fL (7.9-10.8); MONOCYTES # (AUTO) 0.4 10^3/uL (0.0-1.0); MONOCYTES % (AUTO) 4.5 %; NEUTROPHILS # (AUTO) 7.2 10^3/uL (1.5-6.6); NEUTROPHILS % (AUTO) 80.8 %; PLT - PLATELET COUNT 161 10^3/uL (130-450); RED BLOOD COUNT 3.06 10^6/uL (4.20-5.40); WHITE BLOOD COUNT 8.9 x10^3/uL (4.8-10.8)
[2024-10-08] MEDS: MULTIVITAMIN W/MINERALS TABLET PO SCH (08:27)
[2024-10-08] MEDS: polyethylene glycoL 3350 17 GM PACKET PO SCH (08:28)
--- NOTE | 2024-10-08 12:40 | PROVIDER PROGRESS NOTE ---
Subjective Prog Note Date Prog Note Date: 10/08/24 Prog Note Time: 12:58 Subjective Pt reports feeling: Improved Subjective: -Patient states she continues to feel better. She is hard of hearing and is not a great historian of current status. She is able to answer questions without SOB but does not answer all questions asked. Current Medications Current Medications Current Medications: Current Medications Generic Name Dose Route Start Last Admin Trade Name Freq PRN Reason Stop Dose Admin Acetaminophen 650 mg 10/05/24 20:49 Acetaminophen 325 Mg Tablet PO Q4HR PRN Pain 1 to 4, or Fever Albuterol 2.5 mg 10/05/24 21:01 Albuterol Neb 2.5 Mg/3 Ml INH RTQ4H PRN Wheezing Guaifenesin 1,200 mg 10/06/24 21:00 10/08/24 08:27 Guaifenesin 600 Mg Tablet PO 1,200 mg BID PEMA Administration Heparin Sodium (Porcine) 5,000 unit 10/05/24 21:00 10/08/24 08:27 Heparin 5,000 Unit/Ml Vial SUBQ 5,000 unit BID PEMA Administration Hydromorphone HCl 0.5 mg 10/05/24 20:49 Hydromorphone 0.5 Mg/0.5 Ml Syringe IVP Q2H PRN Pain 8 to 10 Cefepime HCl 2 gm/ Sodium 100 mls @ 200 mls/hr 10/06/24 05:00 10/08/24 07:18 Chloride IV Infused Q12H PEMA Infusion Vancomycin HCl 500 mg/ Sodium 100 mls @ 100 mls/hr 10/06/24 16:00 10/07/24 17:45 Chloride IV Infused Q24H PEMA Infusion Mirtazapine 15 mg 10/05/24 21:00 10/07/24 21:19 Mirtazapine 15 Mg Tablet PO 15 mg HS PEMA Administration Multivitamins/Minerals 1 tab 10/08/24 08:00 10/08/24 08:27 Multivitamin W/Minerals Tablet PO 1 tab DAILYWM PEMA Administration Ondansetron HCl 4 mg 10/05/24 20:49 10/08/24 03:13 Ondansetron 4 Mg/2 Ml Vial IVP 4 mg Q6HR PRN Administration Nausea / Vomiting Oxycodone HCl 5 mg 10/05/24 20:49 10/08/24 03:10 Oxycodone 5 Mg Tablet PO 5 mg Q4HR PRN Administration Pain 5 to 7 Polyethylene Glycol 17 gm 10/08/24 09:00 10/08/24 08:28 Polyethylene Glycol 3350 17 Gm Packet PO 17 gm DAILY PEMA Administration Sodium Chloride 10 ml 10/05/24 20:49 10/06/24 04:52 Sodium Chloride Flush 0.9% 10 Ml Syringe IVP 10 ml PRN PRN Administration NEEDED PER PROVIDER ORDERS Sodium Chloride 10 ml 10/06/24 01:00 10/08/24 08:28 Sodium Chloride Flush 0.9% 10 Ml Syringe IVP 10 ml 0100,0900,1700 PEMA Administration Objective Vital Signs/Intake & Output Reviewed Vital Signs: Yes Vital Signs: Vital Signs x48h Temp Pulse Resp BP Pulse Ox O2 Flow Rate 10/08/24 08:47 96 10/08/24 08:40 88 14 140/93 H 95 1 10/08/24 08:17 1 10/08/24 06:29 37.1 C 70 16 145/61 H 94 1 Intake & Output: Intake & Output 10/05/24 10/06/24 10/07/24 10/08/24 23:59 23:59 23:59 23:59 Intake Total 1166 / 1166 710 / 710 780 / 780 100 / 100 Output Total 2150 / 2150 1500 / 1500 550 / 550 Balance 1166 / 1166 -1440 / -1440 -720 / -720 -450 / -450 Weight (kg) 51.5 kg Objective General Appearance: positive No acute distress, Alert and Other (Continues to appear less toxic ) Eyes Bilateral: positive Normal inspection ENT: positive ENT inspection nml Neck: positive Nml inspection Respiratory: positive Chest non-tender and No respiratory distress; negative Wheezes, Rales or Rhonchi Cardiovascular: positive Regular rate & rhythm Abdomen: positive No distention Extremities: positive Other (Mild dec in erythema. Remains with patchy erythema but it has coalesced, greater than last evaluation. This shiny edema has significantly decreased to where the skin is red and wrinkled. Pulses are easily palpable in the left foot and equal bilaterally. Erythema around the nail bed- improved) Neurologic/Psychiatric: positive Oriented x3 Lab Results 10/08/24 06:41 10/08/24 06:41 Other Labs: Lab Results x24hrs 10/08/24 Range/Units 06:41 WBC 8.9 (4.8-10.8) x10^3/uL RBC 3.06 L (4.20-5.40) 10^6/uL Hgb 9.0 L (12.0-16.0) g/dL Hct 29.1 L (37.0-47.0) % MCV 95.1 (81.0-99.0) fL MCH 29.4 (27.0-31.0) pg MCHC 30.9 L (32.0-36.0) g/dL RDW 15.0 (12.0-15.0) % Plt Count 161 (130-450) 10^3/uL MPV 9.7 (7.9-10.8) fL Neut # (Auto) 7.2 H (1.5-6.6) 10^3/uL Lymph # (Auto) 1.0 L (1.5-3.5) 10^3/uL Saline # (Auto) 0.4 (0.0-1.0) 10^3/uL Eos # (Auto) 0.2 (0.0-0.7) 10^3/uL Baso # (Auto) 0.0 (0.0-0.1) 10^3/uL Absolute Nucleated RBC 0.00 x10^3/uL Nucleated RBC % 0.0 /100WBC Sodium 140 (135-145) mmol/L Potassium 4.1 (3.5-4.5) mmol/L Chloride 113 H (101-111) mmol/L Carbon Dioxide 23 (21-32) mmol/L Anion Gap 4.0 L (6-13) BUN 32 H (6-20) mg/dL Creatinine 1.0 (0.6-1.3) mg/dL Estimated GFR (MDRD) 53 L (>89) Glucose 98 (74-104) mg/dL Calcium 8.6 (8.5-10.3) mg/dL Sepsis Event Note (H) Evaluation Current Stage of Sepsis: Resolved Possible source of Sepsis: positive Skin/soft tissue Confirmed Source and Organism (if known) of Sepsis: possible staph epi, methicillin resistant Sepsis Criteria Sepsis Criteria: Recorded Heart Rate greater than 90 bpm, Recorded Respiratory Rate greater than 20, WBC count greater than 12,000 or less than 4000 and Metabolic: lactate > 2 mmol/L Assessment/Plan Problem List (1) Cellulitis of left leg: Impression: CT negative for any fluid collection or gas, just generalized edema. Cellulitis previously treated with IV cefepime and vancomycin. Erythema and swelling improved from yesterday. D/C vancomycin and continue on IV cefepime. Will monitor and start patient on oral Augmentin if no worsening of symptoms. -Patient will require care upon discharge. As patient's home care is uncertain at this time, may consider transition to SNF for appropriate care. (2) Severe sepsis: Impression: -Patient initially met sepsis criteria due to her tachycardia, lactic acid level of 3.0, tachypnea and relative hypotension.Her white blood cell count was 14.6. Her lactate was 3.1. She has an x-ray of her left foot which is negative for any osteomyelitis. Appox. 3 hours later, lactate had normalized and during that time, she got one liter of IVF. -Today, WBC have normalized to 8.9 , lactate <0.2. -Blood cultures have been positive for Staph epi which is methicillin- resistant. This is via PCR. She has 3 additional sets of blood cultures which show no growth after 2 days. Will de-escalate Vanomycin at this time. Although her sepis is resolved, I am awaiting speciation of cultures for appropriate abx therapy, and i am treating her L leg cellulitis with parenteral abx. Cannot place PICC until I know whether she has bacteremia, and pending clearance of the bacteremia. (3) Bacteremia: Impression: -Resolved. PCR positive for methicillin-resistant staph epidermis but likely contaminate. Lactate and WBC WNLs. Patient normocardic with BP elevated near patient's baseline. (4) Infection of toe: Impression: Severely onychomycotic toenails which likely opened up this patient to an infection. She has easily palpable pulses in the lower extremities and her hemoglobin A1c is negative at 5.3%. Erythema improved on examination today. (5) History of COPD: Impression: Longstanding history of COPD. Albuterol is listed in her home meds she also takes guaifenesin. These medications have been resumed. no evidence of right heart failure. Patient likely chronically hypoxic. Goal is to transition patient to home oxygen.
--- NOTE | 2024-10-08 13:51 | PT Plan of Care ---
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 Admitted with LLE cellulitis, toe infection and sepsis. Pt cleared for PT eval by hospitalist. Pt is reportedly wc bound at baseline and transfers with assist from her cousin whom she lives with. Unclear on home environment as pt is confused and unable to answer history questions. Upon PT eval, pt presents A&Ox0 with notable confusion stating she doesnt like apple juice when asked about home environment. Pt is minimally agreeable to work with PT, initially agrees to transfer assessment but during bed mobility, pt yells out in pain and unable to follow cueing. Attempted dependent transfer to EOB however pt is not able to follow cues and limited by pain. Pt presenting below reported baseline of SPT to wc however does not present with good rehab potential. At this time PT rec dc to LTC vs home with 24/7 caregiver support. PLAN Frequency: Evaluation only, no further P.T. DISCHARGE RECOMMENDATIONS Discharge Location: LTC vs home c 24/7 care Support/Services Needed: With assist Other Discharge Equipment: wc, lift equipment Transport Needs at Discharge: Alex
--- NOTE | 2024-10-08 14:12 | OT Plan of Care ---
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 Admitted with LLE cellulitis, toe infection and sepsis. Pt cleared for OT eval by hospitalist. Pt is reportedly wc bound at baseline and transfers with assist from her cousin whom she lives with. Unclear on home environment as pt is confused and unable to answer history questions. Met supine in bed A& O to self only lethargic and withdrawn. Follows simple commands. DEP rolling R<>L for brief change and repositioning. DEP supine to sit EOB- Unable to maintain and tolerate upright position 2/2 pain RN updated and aware. Currently MAX-DEP ADLs supine level. Pt with poor rehab potential 2/2 PLOF and current medical status. Rec d/c to LTC vs home wtih 24 hr assist/caregivers. -Discharge Recommendations Discharge Location LTC Transport Needs at Discharge [facility]
[2024-10-08 15:11] LABS: BILIRUBIN,URINE NEGATIVE (NEGATIVE); GLUCOSE, URINE (UA) NEGATIVE (NEGATIVE); KETONES,URINE (UA) TRACE mg/dL (NEGATIVE); LEUKOCYTE ESTERASE, URINE NEGATIVE (NEGATIVE); NITRITE,URINE NEGATIVE (NEGATIVE); OCCULT BLOOD,URINE TRACE-INTA (NEGATIVE); PROTEIN,URINE 30 mg/dL (NEGATIVE); UROBILINOGEN,URINE 0.2 (NORMAL) E.U./dL (NORMAL)
[2024-10-08 15:19] LABS: BACTERIA,URINE Rare /HPF (None Seen); CLARITY,URINE CLEAR (CLEAR); MUCUS,URINE Moderate Strands; RBC,URINE 0-5 /HPF (0-5); SQUAMOUS EPITHELIAL CELL,UR FEW Squamous (<= Few)
[2024-10-09 08:13] VITALS: BP 173/72; TEMP 98.8; O2SAT 87
[2024-10-09] MEDS: TAMSULOSIN 0.4 MG CAPSULE PO SCH (08:29)
--- NOTE | 2024-10-09 11:36 | Discharge Summary ---
"Discharge Summary Admit Date: 10/05/24 Discharge Date: 10/09/24 Discharging Provider: Mee Sinha PA-C Primary Care Provider: PALLAVI Faulkner Code Status: Do Not Attempt Resuscitation DIAGNOSES Discharge Diagnoses with Status of Each Condition: Left leg cellulitis, resolving transition to p.o. antibiotics Severe sepsis, resolved Bacteremia, contaminant. Ruled out. Left great toe infection History of COPD HPI History of Present Illness: 79-year-old female who presents to the emergency department with complaints of problems with her left foot. She says she has been having increasing pain and redness in her left foot starting in her left great toe for several days now. She states that the infection did not come on quickly it has slowly escalated. She does not remember losing her left great toenail. At her baseline she is wheelchair-bound, uses her legs to transfer. She lives at home with a family member who cares for her. She states she has not been running any fevers and has been feeling fairly well until today. She tells me she has been a non-smoker for about 6 months. She has a POLST listing DNR on the chart. CONSULTS | PROCEDURES Procedures: Left foot x-ray: No acute bony abnormality Chest x-ray: No acute cardiopulmonary process Lower extremity CT: No subcutaneous gas or loculated fluid collection. HOSPITAL COURSE Hospital Course: 79-year-old female presents to the emergency department with left lower extremity pain and swelling. Had an injury to her left great toe several days prior to arrival with gradual increase of erythema in her left lower extremity. She did not remember losing her left great toenail, however her cousin who is her primary caregiver recalls that he was trying to maneuver her up and the toenail got knocked off. In any event she had a resultant cellulitis up to about the mid thigh of the left lower extremity. On admission her initial lactic acid level was elevated at 3.0 however quickly came down with only 1 L of fluid administered. She had a leukocytosis on the day of admission which quickly normalized. She was treated with Rocephin and vancomycin. Blood cultures initially showed methicillin-resistant staph epi in 1 bottle via PCR and ultimately grew out staph epi in 1 out of 2 bottles. This was likely a contaminant. Repeat blood cultures are showing no growth to date. In any event she was treated with cefepime and vancomycin vancomycin was de-escalated and then she was switched over onto Bactrim to complete a course of oral antibiotics as an outpatient. On the date of discharge she began to refuse all care. For the duration of her hospitalization she had refused all hygiene refused to work with PT and refused to get up. She then started to refuse blood draws and medications. She has a history of urinary retention. She did develop urinary retention this hospitalization despite administration of tamsulosin. Noel catheter was placed. She will be discharged home with a Noel catheter in place. This was discussed with her primary caregiver he would appreciate this as it would make it much easier to meet her care needs. It does open her up to infection risk, however this seems the lesser of all of the difficulties that she faces. This patient remained alert and oriented x 3 and was aware of her situation. She wishes DNR status. And furthermore she voiced to me that she did not want antibiotics for any infection she should get in the future. I discussed her situation with her cousin Tomas who is her primary caregiver. He agrees to resume her care but would appreciate help with ultimate placement in long-term care. Therefore [facility] and [facility] [place] social work have been consulted for further assistance with ultimate placement in long-term care. ALLERGIES Allergies Allergy/AdvReac Type Severity Reaction Status Date / Time Penicillins Allergy Anaphylaxis Verified 10/05/24 14:09 MEDICATIONS Ambulatory Orders Medication Instructions Recorded Confirmed albuterol sulfate 90 mcg/actuation 1 inh inhalation Q4 H PRN shortness 07/21/24 10/06/24 aerosol inhaler (Ventolin HFA) of breath or wheezing mirtazapine 15 mg tablet See Rx Instructions .Route 0 07/21/24 10/06/24 .COMPLEX #90 tabs losartan 25 mg tablet 25 mg PO DAILY #90 tabs 04/0 07/2810/06/24 tamsulosin 0.4 mg capsule 0.4 mg PO DAILY #90 caps 10/06/24 sulfamethoxazole 800 1 tab PO BID #20 tabs mg-trimethoprim 160 mg tablet PHYSICAL EXAM AT DISCHARGE Vital Signs: Vital Signs x48h Temp Pulse Resp BP Pulse Ox 10/09/24 08:10 37.1 C 89 22 173/72 H 87 L Physical Exam Other/Comments: General Appearance: positive No acute distress, Alert and Other (Continues to appear less toxic ) poorly groomed. fingernails are long and not trimmed Eyes Bilateral: positive Normal inspection ENT: positive ENT inspection nml Neck: positive Nml inspection Respiratory: positive Chest non-tender and No respiratory distress; negative Wheezes, Rales or Rhonchi Cardiovascular: positive Regular rate & rhythm Abdomen: positive No distention Extremities: positive Other (Mild dec in erythema. Remains with patchy erythema but it has coalesced, greater than last evaluation. The shiny edema has significantly decreased to where the skin is red and wrinkled- redness decreasing daily. Pulses are easily palpable in the left foot and equal bilaterally. Erythema around the nail bed-improved) severely onchomycotic toenails. Neurologic/Psychiatric: positive Oriented x3 LABS 10/08/24 06:41 10/08/24 06:41 SEPSIS Current Stage of Sepsis: Resolved Possible source of Sepsis: Skin/soft tissue FOLLOW UP Follow Up: PCP Trini Lee, one week. TIME SPENT Time Spent in Discharge (Minutes): 40 Discharge Plan Discharge Patient Disposition: Home Health Service Condition: Stable Prescriptions: New sulfamethoxazole-trimethoprim 800-160 mg Tablet 1 tab PO BID Qty: 20 0RF Continued mirtazapine 15 mg tablet See Rx Instructions .ROUTE .COMPLEX Qty: 90 2RF Dose Instruction: take 1 tablet by mouth at bedtime Rx Instructions: take 1 tablet by mouth at bedtime losartan 25 mg tablet 25 mg PO DAILY Qty: 90 0RF tamsulosin 0.4 mg capsule 0.4 mg PO DAILY Qty: 90 3RF albuterol sulfate [Ventolin HFA] 90 mcg/actuation HFA aerosol inhaler 1 inh inhalation Q4H PRN (Reason: shortness of breath or wheezing) Activity Restrictions: Activity as Tolerated Diet: Regular Health Concerns: you are a 79 year old lady who came into the hospital with severe sepsis. This was due to an infection in your left lower extremity. This infection came on after an injury to your left great toe. you have a history of COPD, drug use, and hemorrhagic stroke. The plan was for you to be admitted to hospice back in March. you have refused to have them come into your home from what I understand. you are refusing all further care at the hospital. you seem to understand your situation well enough that I think you are competent to refuse care. you have told me that the next time you get an infection, you want to be allowed to . I have spoken with your cousin, Tomas, who is your caregiver. We are sending you back to live with him. i am sending you home with a catheter in your bladder because you have had urinary retention. I am also sending you home with antbiotics pills; I have sent them to the pharmacy in [place]. you should finish all of them. you should be on home oxygen, but you have refused that. I have asked social workers from [facility] [place] to get involved in your care. I think that they could help find placement for you where your care needs can be met. I am not sure how much longer Tomas will be able to meet your care needs. Additionally, I am asking that home health come in and help manage your noel catheter and perhaps help with your medication managment. IF you would let an aide come in and help you get a bath, that would be good, but since you have refused all of our attempts to clean you, I will not send one. Print Language: Burkinan Patient Instructions: Cellulitis Dc Follow-up Care: Batool Lee FNP [Primary Care Provider] -"
--- NOTE | 2024-10-09 12:44 | ADVANCE CARE PLANNING NOTE ---
Advance Care Planning Planning Encounter Date: 10/09/24 Purpose: Lana has started to refuse care, she is refusing care at home. Need to clarify her code status. Parties in Attendance: Mee Sinha PA-C, JOCELYN Lombardo, patient Decisional Capacity of the Patient: alert and oriented. She has some insight into her condition. Diagnosis for Encounter (1) Cellulitis of left leg: (2) Severe sepsis: (3) Bacteremia: (4) Infection of toe: (5) History of COPD: Encounter Subjective/Patient's Story: Hemorrhagic stroke in February 2024. 3-week stay at [facility] with discharge to home and planned admission to hospice. Looking through the records it looks as if hospice admission never happened. I am unclear exactly why. The patient expresses to me DNR status when I admitted her to the hospital. She was somewhat accepting of care with blood work and antibiotics until today when she is refusing. She has refused PT and OT. I have had several phone conversations with her cousin Tomas who is her primary caregiver. He states that at home she refuses care. She refuses to get up and go to the bathroom she refuses personal hygiene. It is difficult for him to take care of her. He is willing to continue but it is hard when she is not unwilling participant and does nothing for herself. Today Lana is refusing lab draws. She wants to be left alone. She is willing to feed herself. She is refusing all hygiene. She is very poorly groomed, her fingernails are very long and her hair is very dirty and matted to her head. She has refused all offers to help her clean up. She is refusing oxygen therapy. Objective/Medical Story: Hemorrhagic CVA with EVD placement in the fall 2023. Discharged to hospice but I do not see any evidence that she was ever admitted to hospice services. [facility] has refused her. [facility] has been the elected hospice agency, however, it appears that she has refused their visits. She is also refused home health. Admission several months ago for an influenza A infection with hypoxia. This resolved and she was transferred home. This admission for sepsis related to a cellulitis which was secondary to a toe injury. She has recovered from the sepsis but is now refusing care. She does not want to live. When I asked her quite pointedly if she would want any infection treated with antibiotics she states no. I do not believe she is suicidal she is asked breast no suicidal ideation she just does not want to be here. She has very poor quality of life. She refuses to get up at home she sits in a chair she does not ambulate. Her cousin said that several weeks ago she was ambulating with a walker but now she refuses. Goals of Care: She previously had a DO NOT RESUSCITATE DO NOT INTUBATE selective treatment POLST. We are de-escalating this to DO NOT RESUSCITATE with comfort care only. Lana does not want antibiotics for any infection. Plan: DNR DNI, comfort measures only. This patient does not want treatment of infections. Additional Discussion: I have spoken with her cousin Tomas over the phone several times. He will continue to care for her but overall would prefer that she obtain long-term care placement as her care needs are becoming too onerous. Code Status: Do Not Attempt Resuscitation Time spent on advance care plannin min
[2024-10-09] MEDS ORDERED: SULFAMETH/TRIMETH DS 800/160 MG TABLET PO SCH (21:00)
== END 2024-10-09 17:10 | disposition home health service (06) | DRG 872 ==
LOC: ED 13:56 → ICU 20:05
PROVIDERS: ADMIT Physician Assistant Medical; ATTEND Physician Assistant Medical
DX: Z66 Do not resuscitate; G93.40 Encephalopathy, unspecified; Z51.5 Encounter for palliative care; L08.9 Local infection of the skin and subcutaneous tissue, unspecified; R65.20 Severe sepsis without septic shock; Z99.3 Dependence on wheelchair; J44.9 Chronic obstructive pulmonary disease, unspecified; R33.9 Retention of urine, unspecified; Z79.899 Other long term (current) drug therapy; X58.XXXA Exposure to other specified factors, initial encounter; A41.9 Sepsis, unspecified organism; Z86.73 Personal history of transient ischemic attack (TIA), and cerebral infarction without residual deficits; Z87.891 Personal history of nicotine dependence; Z53.20 Procedure and treatment not carried out because of patient's decision for unspecified reasons; L03.116 Cellulitis of left lower limb; I96 Gangrene, not elsewhere classified; S91.202A Unspecified open wound of left great toe with damage to nail, initial encounter